=== PATIENT | male | born 1955 | race Caucasian/White ===

== ENCOUNTER 2021-06-10 11:29 | Emergency (ER) | payer OTHER, SELFPAY ==
--- NOTE | ~2021-06-10 | CT_ITS ---
EXAMINATION: CT CERVICAL SPINE WITHOUT CONTRAST CLINICAL INFORMATION: Fall COMPARISON: None TECHNIQUE: CT cervical spine with coronal and sagittal reconstructions. No intrathecal contrast. This CT examination was performed using dose optimization techniques as appropriate, variously including the following: *Automated exposure control *Adjustment of mA and/or kV according to patient size (this includes techniques or standardized protocols for targeted exams where dose is matched to indication/reason for exam; i.e. extremities or head) *Use of iterative reconstruction technique DLP: 1328.62 mGy-cm FINDINGS: There is motion artifact present. No abnormal prevertebral soft tissue swelling is seen. The paraspinal muscle fat planes are maintained. No acute cervical spine fracture is identified. There is some left lateral angulation of the odontoid without evidence of acute fracture which is most likely from combination of previous healed trauma as well as irregularity and loss of joint space involving the C1-C2 right lateral joint space and lateral mass. There is narrowing of the C5-C6 disc space with approximately 1 mm of subluxation. There is some spurring of the joints of [place]ch[place] at the C5-C6 level causing some mild anterior neuroforamina encroachment bilaterally. CT/CT cervical spine wo con IMPRESSION: No acute cervical spine fracture. Degenerative change as described above. Question old odontoid healed injury.
--- NOTE | ~2021-06-10 | CT_ITS ---
EXAMINATION: CT HEAD WITHOUT CONTRAST CLINICAL INFORMATION: Fall, trauma, pain COMPARISON: None TECHNIQUE: Contiguous axial imaging was performed from the skull base to vertex without intravenous administration of contrast. Images are repeated due to motion on initial sequence. Additional 2-D coronal and sagittal reformatted images are generated on the CT workstation and uploaded to PACS. This CT examination was performed using dose optimization techniques as appropriate, variously including the following: *Automated exposure control *Adjustment of mA and/or kV according to patient size (this includes techniques or standardized protocols for targeted exams where dose is matched to indication/reason for exam; i.e. extremities or head) *Use of iterative reconstruction technique DLP: 1388 mGy-cm FINDINGS: There is no intracranial hemorrhage, hematoma, or extra-axial fluid collection. The ventricles are normal in size and there is no hydrocephalus, edema, mass effect, midline shift. There is incidental small anterior congenital cavum septum pellucidum. Scattered bilateral periventricular white matter gliosis is present consistent with chronic small vessel ischemic changes. There are generalized atrophic changes with prominence of the cortical sulci and fissures and cisterns. There is no visible acute territorial infarct or mass lesion. There is a right posterior upper scalp hematoma measuring approximately 1 cm thickness by 2 cm x 2 cm. The calvarium appears intact. There is no pneumocephalus or orbital emphysema. The visualized sinuses and middle ears and mastoid air cells show no significant mucosal thickening. There are no air-fluid levels. CT/CT head/brain wo con IMPRESSION: 1. Posterior upper right scalp hematoma 1 x 2 x 2 cm. 2. No intracranial hemorrhage or hematoma. No mass effect or edema. 3. Generalized atrophic changes with periventricular white matter gliosis consistent with chronic small vessel ischemic changes..
--- NOTE | ~2021-06-10 | XR_ITS ---
EXAMINATION: XR CHEST CLINICAL INFORMATION: Rule out aspiration. COMPARISON: Chest 06/17/2017 TECHNIQUE: Frontal view of the chest was obtained. FINDINGS: The lungs are fairly well-expanded with increased markings suggestive of mild vascular congestion or interstitial pneumonitis. No consolidation or mass seen. The heart size and pulmonary vascularity is normal. There are pacer electrodes in right atrium and right ventricle. XR/XR chest 1V IMPRESSION: Suspect mild pulmonary vascular congestion. No confluent infiltrate seen. The pacer electrodes in right atrium and right ventricle.
[2021-06-10 11:40] VITALS: BP 101/76; BP 102/70; PULSE 58; PULSE 60; RESP 12; TEMP 35.6; O2SAT 96; BMI 25.7
--- NOTE | 2021-06-10 11:52 | ED_ITS ---
HPI - Fall General Chief Complaint: Fall Stated Complaint: fall/etoh Time Seen by Provider: 06/10/21 11:43 Source: patient and EMS Mode of arrival: EMS Limitations: altered mental status (agitation) History of Present Illness complaint: fall Onset (ago): minute(s) Fall from: standing Fall witnessed: yes, by bystander Place fall occurred: street (bystanders state he was walking and fell and hit his face no LOC reported ) Loss of consciousness: none Prolonged down time: no Symptoms prior to fall: none Context: other (states he has been taking too many benzos) Location of injury: head Associated symptoms (after fall): denies Related Data Allergies Allergy/AdvReac Type Severity Reaction Status Date / Time Penicillins [PENICILLINS] Allergy Unknown UNKNOWN, Verified 06/10/21 11:45 rash Penicillin Allergy Unknown rash Uncoded 07/07/17 00:00 Review of Systems Review of Systems: ROS unable to be obtained due to altered mental status and poor cooperation [facility] Past Medical History Attestation statement: The following information was validated with the patient. Medical History Cervical spine fracture Pancreatic cancer Substance abuse Social History Social History (Updated 06/10/21 @ 12:06 by Madhavi Maharaj DO) Patient Tobacco Use Status: Current everyday Tobacco user Substance Use Type: Opiates and Sedatives Physical Exam Vital Signs: Vital Signs: Last Vital Signs Temp 96.0 F L 06/10/21 11:40 Pulse 63 06/10/21 14:26 Resp 18 06/10/21 14:26 BP 153/82 H 06/10/21 14:26 Pulse Ox 100 06/10/21 14:26 Body Mass Index 25.7 Appearance: Alert. Oriented X2. No acute distress. Agitated Eyes: Pupils equal, round and reactive to light. ENT: Pharynx normal. contusion on parietal scalp Neck: Normal inspection. Neck supple. Collar in placeno CVS: Normal heart rate and rhythm. Pulses normal. Respiratory: No respiratory distress. Breath sounds normal. Abdomen: Soft and non-tender. Skin: Skin warm and dry. Normal skin color. Normal skin turgor. Extremities: No lower extremity edema. No calf ttp Neuro: Oriented X 2. No motor deficit. No sensory deficit. Course Course Course Narrative: initially somnolent on arrival - given narcan on arrival by discharge coordinator cannot obtain images, IV ativan ordered IVF ordered, repeat Cr ordered prior to N consult signed out pending repeat labs and [facility]N MDM - Fall MDM Narrative Medical decision making narrative: 65 yo male with hx of chronic pain, substance abuse, here after witnessed fall - admits to methadone and benzo use, given narcan prior to my assessment, he is agitated and making SI statements, I want to off myself. I'm going to take 100 bags of fentanyl and kill myself. Labs, CT for trauma head/neck, N consult ordered. Section 12 signed Lab Data Result diagrams: 06/10/21 13:42 06/10/21 13:42 Labs: Lab Results 06/10/21 06/10/21 06/10/21 Range/Units 12:54 13:42 13:42 WBC 14.5 H (4.8-10.8) X10*3/uL RBC 4.68 (4.60-5.80) X10*6/uL Hgb 12.9 L (14.0-18.0) g/dl Hct 40.3 L (42-52) % MCV 86.1 (80-98) fL MCH 27.6 (27.0-33.0) pg MCHC 32.0 (31.0-36.0) g/dl RDW 15.9 (11.0-16.0) % Plt Count 364 (160-400) X10*3/uL MPV 10.8 (9.4-12.4) fL Immature Gran % (Auto) 0.8 H (0.0-0.4) % Neut % (Auto) 75.9 H (45-73) % Lymph % (Auto) 14.8 L (20-40) % Clayton % (Auto) 5.9 (2-11) % Eos % (Auto) 2.1 (0-4) % Baso % (Auto) 0.5 (0-2) % Lymph # (Auto) 2.2 (1.2-4.9) X10*3/uL Clayton # (Auto) 0.9 (0.1-1.2) X10*3/uL Eos # (Auto) 0.3 (0.0-0.4) X10*3/uL Baso # (Auto) 0.1 (0.0-0.2) X10*3/uL Abs Immat Gran (auto) 0.12 H (0.00-0.03) X10*3/uL Absolute Neuts (auto) 11.0 H (2.0-8.3) X10*3/uL Absolute Nucleated RBC 0.000 (0.0-0.012) X10*3/uL Nucleated RBC % (auto) 0.0 (0.0-0.2) /100WBC PT 11.2 (9.9-13.0) SEC INR 1.0 (0.9-1.1) APTT 33.5 (24.1-38.0) SEC Sodium (135-145) mmol/L Potassium (3.3-5.1) mmol/L Chloride (96-108) mmol/L Carbon Dioxide (22-29) mmol/L Anion Gap (12-20) BUN (9-16) mg/dL Creatinine (0.5-1.4) mg/dL Estim Creat Clear Calc Estimated GFR Random Glucose (60-115) mg/dL Calcium (8.4-10.2) mg/dL Magnesium (1.6-2.6) mg/dL Total Bilirubin (0.0-1.0) mg/dL Direct Bilirubin (0.0-0.5) mg/dL AST (5-37) U/L ALT (0-40) U/L Alkaline Phosphatase (39-117) U/L Total Creatine Kinase (38-174) U/L Total Protein (6.5-8.0) g/dL Albumin (3.5-5.0) g/dL Lipase (8-78) U/L Ethyl Alcohol mg/dL COVID-19 (CARMELLA) Negative (Negative) COVID-19 Clin Com See Note 06/10/21 06/10/21 Range/Units 13:42 13:42 WBC (4.8-10.8) X10*3/uL RBC (4.60-5.80) X10*6/uL Hgb (14.0-18.0) g/dl Hct (42-52) % MCV (80-98) fL MCH (27.0-33.0) pg MCHC (31.0-36.0) g/dl RDW (11.0-16.0) % Plt Count (160-400) X10*3/uL MPV (9.4-12.4) fL Immature Gran % (Auto) (0.0-0.4) % Neut % (Auto) (45-73) % Lymph % (Auto) (20-40) % Clayton % (Auto) (2-11) % Eos % (Auto) (0-4) % Baso % (Auto) (0-2) % Lymph # (Auto) (1.2-4.9) X10*3/uL Clayton # (Auto) (0.1-1.2) X10*3/uL Eos # (Auto) (0.0-0.4) X10*3/uL Baso # (Auto) (0.0-0.2) X10*3/uL Abs Immat Gran (auto) (0.00-0.03) X10*3/uL Absolute Neuts (auto) (2.0-8.3) X10*3/uL Absolute Nucleated RBC (0.0-0.012) X10*3/uL Nucleated RBC % (auto) (0.0-0.2) /100WBC PT (9.9-13.0) SEC INR (0.9-1.1) APTT (24.1-38.0) SEC Sodium 139 (135-145) mmol/L Potassium 5.0 (3.3-5.1) mmol/L Chloride 107 (96-108) mmol/L Carbon Dioxide 22 (22-29) mmol/L Anion Gap 15 (12-20) BUN 22 H (9-16) mg/dL Creatinine 1.74 H (0.5-1.4) mg/dL Estim Creat Clear Calc 47.6 Estimated GFR 40 Random Glucose 75 (60-115) mg/dL Calcium 9.1 (8.4-10.2) mg/dL Magnesium 2.0 (1.6-2.6) mg/dL Total Bilirubin 0.3 (0.0-1.0) mg/dL Direct Bilirubin 0.2 (0.0-0.5) mg/dL AST 22 (5-37) U/L ALT 13 (0-40) U/L Alkaline Phosphatase 105 (39-117) U/L Total Creatine Kinase 96 (38-174) U/L Total Protein 7.4 (6.5-8.0) g/dL Albumin 3.9 (3.5-5.0) g/dL Lipase < 4 L (8-78) U/L Ethyl Alcohol < 10 mg/dL COVID-19 (CARMELLA) (Negative) COVID-19 Clin Com ECG Data Attestation: I personally reviewed and interpreted this ECG as follows: ECG interpretation date: 06/10/21 ECG interpretation time: 12:50 Interpretation: Rate: 60 Rhythm: con atrial paced [place]: normal Normal P waves. Normal KARLI. Normal QRS complex. ST T wave : no FELIPA, nonspecific, artifact noted qTC: prolonged prior studies: no acute ischemia The study has been interpreted contemporaneously by me. . Discharge Plan Discharge Clinical Impression: Active substance abuse, Creatinine elevation
--- NOTE | 2021-06-10 11:52 | ECG_ITS ---
Test Reason : AMS Blood Pressure : / mmHG Vent. Rate : 060 BPM Atrial Rate : 357 BPM P-R Int : 126 ms QRS Dur : 084 ms QT Int : 500 ms P-R-T Axes : 000 078 071 degrees QTc Int : 500 ms Atrial-paced rhythm Septal infarct (cited on or before 13-JUN-2017) Prominent U waves Prolonged QT Abnormal ECG When compared with ECG of 13-JUN-2017 09:58, Electronic atrial pacemaker has replaced Sinus rhythm Vent. rate has increased BY 22 BPM QT has lengthened Referred By: Madhavi Maharaj Electronically Signed By:Karlos Lynn
[2021-06-10] MEDS: LORazepam 2 MG/ML VIAL 1 MG IVPUSH (12:56)
--- NOTE | 2021-06-10 12:57 | PC.NURSE ---
pt combative upon change into hospital attire, security at bedside, pt attempting to swing his fists at staff. pt was escorted to CT scan by myself and security, IV access obtained as pt was restless, unable to obtain clear CT images. MD aware, pt medicated as ordered. Resp even, nonlaboured, RR 12 at this time, resting in stretcher in hallway.
[2021-06-10 13:28] LABS: COVID-19 Test Negative (Negative); IDNOW Serial# 9DD0AD1C
[2021-06-10 13:46] LABS: MANUAL DIFF FLAG NO
[2021-06-10 13:48] LABS: Basophils Absolute Auto 0.1 X10*3/uL (0.0-0.2); Basophils Percent Auto 0.5 % (0-2); Eosinophils Absolute Auto 0.3 X10*3/uL (0.0-0.4); Eosinophils Percent Auto 2.1 % (0-4); Hematocrit 40.3 % (42-52); Hemoglobin 12.9 g/dl (14.0-18.0); Imm Gran Abs Auto 0.12 X10*3/uL (0.00-0.03); Imm Gran Pct Auto 0.8 % (0.0-0.4); Lymphocytes Absolute Auto 2.2 X10*3/uL (1.2-4.9); Lymphocytes Percent Auto 14.8 % (20-40); Mean Corpuscular Hemoglobin 27.6 pg (27.0-33.0); Mean Corpuscular Volume 86.1 fL (80-98); Mean Platelet Volume 10.8 fL (9.4-12.4); Monocytes Absolute Auto 0.9 X10*3/uL (0.1-1.2); Monocytes Percent Auto 5.9 % (2-11); Neutrophils Percent Auto 75.9 % (45-73); Platelet Count 364 X10*3/uL (160-400); Red Blood Count 4.68 X10*6/uL (4.60-5.80); Red Cell Distribution Width 15.9 % (11.0-16.0); White Blood Count 14.5 X10*3/uL (4.8-10.8)
[2021-06-10 14:04] LABS: Prothrombin Time 11.2 SEC (9.9-13.0)
[2021-06-10 14:07] LABS: Partial Thromboplastin Time 33.5 SEC (24.1-38.0)
[2021-06-10 14:11] LABS: Ethanol < 10 mg/dL
[2021-06-10 14:19] LABS: Alanine Aminotransferase 13 U/L (0-40); Albumin Level 3.9 g/dL (3.5-5.0); Alkaline Phosphatase 105 U/L (39-117); Anion Gap 15 (12-20); Aspartate Amino Transferase 22 U/L (5-37); Bilirubin Direct 0.2 mg/dL (0.0-0.5); Bilirubin Total 0.3 mg/dL (0.0-1.0); Blood Urea Nitrogen 22 mg/dL (9-16); Calcium 9.1 mg/dL (8.4-10.2); Carbon Dioxide 22 mmol/L (22-29); Chloride 107 mmol/L (96-108); Creatinine Clr Calc Pharmacy 47.6; Estimated Glomerular Filt Rate 40; Glucose Random 75 mg/dL (60-115); Lipase < 4 U/L (8-78); Sodium 139 mmol/L (135-145); Total Protein 7.4 g/dL (6.5-8.0)
[2021-06-10 14:26] VITALS: BP 153/82; PULSE 63; RESP 18; O2SAT 100
[2021-06-10] MEDS: 0.9 % Sodium Chloride 1,000 ML 999 ML IVCONT (14:43)
--- NOTE | 2021-06-10 17:10 | PC.NURSE ---
pt tought stick, phlebtomoy on their way to draw CR.
[2021-06-10 17:53] LABS: Creatinine Clr Calc Pharmacy 58.8; Estimated Glomerular Filt Rate 51
--- NOTE | 2021-06-10 19:06 | PC.NURSE ---
pt has been 1:1 since arrival to facility. remains asleep. easily roused, requesting methadone.
[2021-06-10 19:09] VITALS: BP 199/105; PULSE 90; RESP 16; TEMP 35.8; O2SAT 98
[2021-06-10 22:21] VITALS: BP 150/80; PULSE 61; RESP 14; TEMP 36.4; O2SAT 97
[2021-06-11] VITALS: RESP 16
--- NOTE | 2021-06-11 03:25 | PC.NURSE ---
Patient woke up, sat upright and stated Where's my stuff? I need my Methadone now! I take 130mg of Methadone and I'm going crazy here! This RN called [facility] on [facility] to attempt to confirm methadone dose, but was unable to because it is 3:29am currently. Call back number given to [facility] and will give a call back when available. This information explained to patient, who verbalized understanding and remained calm. to bedside, offered PO Ativan, which patient accepted. Plan to administer medication once it is ordered. Warm blankets given. Will continue to monitor.
[2021-06-11] MEDS: LORazepam 1 MG TABLET PO (05:31)
--- NOTE | 2021-06-11 09:50 | PC.NURSE ---
[facility] CALLED RE:REFERRAL
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
--- NOTE | 2021-06-11 13:19 | MHC.RECOVSUP ---
Recovery Support note: Patient is a 65 year old Emir[place] speaking male who presented to [facility] ED after a fall. Patient made SI statements while in the emergency department. Patient was evaluated by crisis and cleared for discharge. This procedure writer met with patient to discuss his substance use and treatment options. Patient is currently receiving 130mg of methadone through [facility] in [place]. Patient finds this helpful and reports he rarely uses heroin. Patient reports regular use of benzodiazepine use. Reports he was previously prescribed medications however his provider discontinued them and he began buying them off the street. Patient reports withdrawal symptoms when he does not use, stating he cannot sleep. Patient is agreeable to going to detox and reports he will go anywhere. This procedure writer will refer patient to detox facilities.
== END 2021-06-11 18:29 | disposition home or self-care (01) ==
PROVIDERS: Emergency Medicine; Emergency Provider Emergency Medicine
DX: S00.81XA Abrasion of other part of head, initial encounter (principal); F11.129 Opioid abuse with intoxication, unspecified; F10.129 Alcohol abuse with intoxication, unspecified; G44.309 Post-traumatic headache, unspecified, not intractable; R79.89 Other specified abnormal findings of blood chemistry; M54.2 Cervicalgia; W01.0XXA Fall on same level from slipping, tripping and stumbling without subsequent striking against object, initial encounter; Y93.9 Activity, unspecified; Y92.9 Unspecified place or not applicable; Y99.9 Unspecified external cause status; Y90.0 Blood alcohol level of less than 20 mg/100 ml; Z20.822 Contact with and (suspected) exposure to COVID-19; Z79.899 Other long term (current) drug therapy
CPT/HCPCS: 36415; 70450; 71045; 72125; 80048; 80076; 82077; 82550; 82565; 83690; 83735; 85025; 85610; 85730; 87635; 93005; 96365; 96375; 99284; 99285; J2060

== ENCOUNTER 2023-12-16 17:30 | Inpatient (IN) | payer MEDICARE, MEDICAID, SELFPAY ==
--- NOTE | ~2023-12-16 | US_ITS ---
EXAMINATION: US ABDOMEN LIMITED CLINICAL INFORMATION: Left upper quadrant pain. COMPARISON: None available. TECHNIQUE: Real-time imaging of the pancreas, spleen and left kidney. 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 The left kidney measures 11.3 cm in length. No evidence of nephrolithiasis or hydronephrosis. There are several renal cysts, largest with lobulated contour, a few internal septations and peripheral hyperechoic foci in the mid pole lateral surface measuring 2.3 x 1.8 x 2.3 cm. No evidence of free fluid or left upper quadrant mass. US/US abdomen limited IMPRESSION: 1. No evidence of nephrolithiasis or hydronephrosis. 2. Complex left midpole renal cyst. Recommend further characterization with abdominal MRI renal protocol. 3. 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
[2023-12-16 17:38] VITALS: BP 139/83; BP 150/90; PULSE 73; PULSE 76; RESP 16; TEMP 37.2; O2SAT 95; O2SAT 98; BMI 23.0
[2023-12-16 17:48] VITALS: RESP 16
--- NOTE | 2023-12-16 18:13 | ED.PSYCH ---
HPI - Psych General Chief Complaint: Psychiatric Symptoms Stated Complaint: SI remarks, voluntarily coming to ER Time Seen by Provider: 12/16/23 17:54 Source: patient and EMS Mode of arrival: EMS Limitations: no limitations History of Present Illness HPI Narrative: 68-year-old male with a history of chronic pancreatitis, pacemaker, polysubstance use presents to the ER with complaints of increasing depression, states I dont want to live anymore . Patient reports he has been taking daily about 10-Klonopin off the street and attempt to fall asleep and never wake up again. He denies HI or hallucination. He is on methadone. He does intermittently sniff heroin. No physical complaints Patient reports he does not currently have a psychiatrist or therapist. Related Data Home Medications Medication Instructions Recorded Confirmed methadone 10 mg/mL oral concentrate 130 mg PO DAILY 06/11/21 06/11/21 Allergies Allergy/AdvReac Type Severity Reaction Status Date / Time Penicillins [PENICILLINS] Allergy Unknown UNKNOWN, Verified 12/16/23 20:14 rash Review of Systems Review of Systems: Yes all other systems are reviewed and are negative Constitutional: Constitutional: Reports no additional constitutional complaints, Denies body ache(s), Denies chills, Denies fever(s), Denies headache(s) and Denies weakness Eyes: Eyes: Reports no additional eye complaints and Denies change in vision ENT: Reports system reviewed and no additional complaints, except as documented, Denies dizziness, Denies headache(s), Denies nasal congestion, Denies nasal discharge and Denies neck pain Cardiovascular: Cardiovascular: Reports no additional cardiovascular complaints, Denies chest pain, Denies leg edema and Denies dyspnea Respiratory: Respiratory: Reports no additional respiratory complaints, Denies cough and Denies dyspnea Gastrointestinal: Gastrointestinal: Reports no additional gastrointestinal complaints, Denies abdominal pain, Denies diarrhea, Denies nausea and Denies vomiting Genitourinary: Genitourinary: Denies urinary incontinence Musculoskeletal: Musculoskeletal: Reports no additional musculoskeletal complaints, Denies back pain, Denies arthralgias, Denies joint swelling, Denies neck pain, Denies numbness and Denies tingling Integumentary/Breasts: Skin/Breast: Reports system reviewed and no additional complaints, except as docu and Denies rash Neurologic: Reports system reviewed and no additional complaints, except as documented, Denies Abnormal speech present, Denies dizziness, Denies headache(s), Denies numbness, Denies tingling and Denies weakness Psychiatric: Psychiatric: Denies anxiety, Reports depression, Denies homicidal ideation and Reports suicidal ideation [facility] Past Medical History Attestation statement: The following information was validated with the patient. Source: old records reviewed and nursing notes reviewed Medical History Substance abuse Cervical spine fracture Pancreatic cancer Social History Social History Alcohol intake: current Alcohol intake frequency: holidays/special occasions only Alcohol type: beer and hard liquor Patient Tobacco Use Status: Current everyday Tobacco user Smoked in Last 30 Days: Yes Substance Use Type: Opiates Substance Use Type Other:: fentanyl Substance Use Frequency: Monthly Any prior treatment program specific to substance use: No Advance Directives: No Advance Directives Information Provided: No Physical Exam Vital Signs: Vital Signs: Last Vital Signs Temp 98.9 F 12/16/23 17:38 Pulse 73 12/16/23 17:38 Resp 16 12/16/23 17:48 BP 139/83 12/16/23 17:38 Pulse Ox 98 12/16/23 17:38 O2 Del Method Room Air 12/16/23 17:38 BMI result Body Mass Index 23.0 Const: General: cooperative, healthy appearing, comfortable and no acute distress Orientation/consciousness: patient oriented x3 Limitations: no limitations HEENT: Head: Yes normal to inspection Ears: hearing grossly normal bilaterally General nose exam: Normal external nose present Face and sinus: Yes normal facial exam Mouth: Normal oral and palatal mucosa present Throat: Yes posterior oropharynx normal Eyes: General: appearance normal, both eyes and all related structures Pupils: Equal, round and reactive pupils present Neck: Neck: Yes normal visual inspection Chest: Chest palpation & inspection: normal inspection of the chest Resp: Effort & Inspection: normal respiratory effort Auscultation: clear to auscultation bilaterally Cardio: Rate: regular rate Rhythm: regular rhythm Peripheral pulses: Peripheral pulses 2+ throughout GI: Inspection: Yes normal to inspection Palpation (GI): Soft to palpation and nontender Auscultation: normal bowel sounds Back/Spine/Pelvis: Thoracic/Lumbar Spine: thoracic and lumbar spine normal to inspection Skin: General skin exam: no rashes or lesions noted Neuro: General: patient oriented x3, no focal motor deficits and normal sensation to monofilament Cranial nerves: Yes Equal, round and reactive pupils present Cognition (Neuro): normal cognition Speech: No Abnormal speech present Gait exam (Neuro): Normal gait present Motor exam (neuro): 5/5 motor strength present throughout Extrem: General: Yes normal to inspection Course Course Course Narrative: 1957-reviewed labs and drug screen. At this time no concern for acute ingestion or trauma. Patient be medically cleared to see crisis Reevaluation(s) Reevaluation #1: [id number]-Placed in physician observation pending CARE team evaluation Reevaluation #2: [id number]-Sign out to Dr Oconnor pending care team Medical Decision Making Medical Decision Making [facility] Narrative: 68-year-old male with a history of chronic pancreatitis, pacemaker, polysubstance use presents to the ER with complaints of increasing depression, states I dont want to live anymore . Patient reports he has been taking daily about 10-Klonopin off the street and attempt to fall asleep and never wake up again. He denies HI or hallucination. He is on methadone. He does intermittently sniff heroin. No physical complaints Patient reports he does not currently have a psychiatrist or therapist. No concern for trauma. Patient has been taking about 10 tablets per day of klonopin (off the street). Last dose was this morning 9am. Alert/oriented. Will need labs, JOHNSON, crisis consult once Differential Diagnosis Differential Diagnoses: The differential diagnosis associated with the presentation includes Admission/Observation Consideration of admission/observation: Escalation of care including admission/observation considered Consult Healthcare Provider Management of the patient was discussed with: Behavioral Health Provider Lab Data [facility] Lab Attestation statement: I reviewed the patient's lab results. Labs show chronic leukocytosis, chronic kidney disease Drug screen is positive for opiates, fentanyl, benzos, cocaine 12/16/23 19:27 12/16/23 19:27 Labs: Lab Results 12/16/23 12/16/23 Range/Units 18:29 19:27 WBC 14.2 H (4.8-10.8) X10*3/uL RBC 3.83 L (4.60-5.80) X10*6/uL Hgb 10.6 L (14.0-18.0) g/dl Hct 33.5 L (42.0-52.0) % MCV 87.5 (80.0-98.0) fL MCH 27.7 (27.0-33.0) pg MCHC 31.6 (31.0-36.0) g/dl RDW 16.4 H (11.0-16.0) % Plt Count 325 (160-400) X10*3/uL MPV 10.8 (9.4-12.4) fL Immature Gran % (Auto) 0.6 H (0.0-0.4) % Neut % (Auto) 84.0 H (45-73) % Lymph % (Auto) 9.4 L (20-40) % [place] % (Auto) 5.3 (2-11) % Eos % (Auto) 0.2 (0-4) % Baso % (Auto) 0.5 (0-2) % Lymph # (Auto) 1.3 (1.2-4.9) X10*3/uL [place] # (Auto) 0.8 (0.1-1.2) X10*3/uL Eos # (Auto) 0.0 (0.0-0.4) X10*3/uL Baso # (Auto) 0.1 (0.0-0.2) X10*3/uL Abs Immat Gran (auto) 0.08 H (0.00-0.03) X10*3/uL Absolute Neuts (auto) 12.0 H (2.0-8.3) x10*3/uL Absolute Nucleated RBC 0.000 (0.0-0.012) X10*3/uL Nucleated RBC % (auto) 0.0 (0.0-0.2) /100WBC Sodium 141 (135-145) mmol/L Potassium 4.9 (3.3-5.1) mmol/L Chloride 105 (96-108) mmol/L Carbon Dioxide 23 (22-29) mmol/L Anion Gap 18 (12-20) BUN 28 H (9-16) mg/dL Creatinine 1.55 H (0.5-1.4) mg/dL Estim Creat Clear Calc 37.7 Estimated GFR 45 Random Glucose 122 H (60-115) mg/dL Calcium 8.7 (8.4-10.2) mg/dL Total Bilirubin 0.2 (0.0-1.0) mg/dL AST 19 (5-37) U/L ALT 10 (0-40) U/L Alkaline Phosphatase 100 (39-117) U/L Total Protein 7.0 (6.5-8.0) g/dL Albumin 3.5 (3.5-5.0) g/dL Urine Color Dark Yellow Urine Appearance Clear Urine pH 5.0 (5.0-9.0) Ur Specific [place] 1.020 (1.005-1.025) Urine Protein Negative (Neg-Trace) mg/dL Urine Glucose (UA) Negative (Negative) mg/dL Urine Ketones Trace (Negative) mg/dL Urine Blood Negative (Negative) Urine Nitrite Negative (Negative) Ur Leukocyte Esterase Negative (Negative) Urine Opiates Screen POSITIVE H (Not Detect) Urine Fentanyl Screen POSITIVE H (Not Detect) Ur Barbiturates Screen Not Detected (Not Detect) Ur Phencyclidine Scrn Not Detected (Not Detect) Ur Amphetamines Screen Not Detected (Not Detect) U Benzodiazepines Scrn POSITIVE H (Not Detect) Urine Cocaine Screen POSITIVE H (Not Detect) U Marijuana (THC) Screen Not Detected (Not Detect) Ethyl Alcohol < 10 mg/dL COVID-19 (CARMELLA) Negative (Negative) COVID-19 Clin Com See Note Discharge Plan Discharge Clinical Impression: Depression, Polysubstance use disorder Patient Disposition: Still a Patient Prescriptions: No Action methadone 10 mg/mL Concentrate 130 mg PO DAILY Interventions: [place]-Suicide Risk Severity Scale Last Done: 12/16/23 17:45
--- NOTE | 2023-12-16 18:51 | PC.NURSE ---
this RN attempted to draw patient and so did COLTEN Ahuja without success. Urine and covid sent down Patient is calm and cooperative at this time, offering no complaints to this RN. Denies HI, endorses some suicidal thoughts
[2023-12-16 18:57] LABS: Amphetamine Screen Urine Not Detected (Not Detect); Barbiturates, Urine Not Detected (Not Detect); Benzodiazepines Screen Urine POSITIVE (Not Detect); Cannabinoid Screen Urine Not Detected (Not Detect); Cocaine Screen Urine POSITIVE (Not Detect); Fentanyl, urine POSITIVE (Not Detect); Opiate Screen Urine POSITIVE (Not Detect); Phencyclidine Screen Urine Not Detected (Not Detect)
[2023-12-16 19:01] LABS: COVID-19 Test Negative (Negative); IDNOW Serial# 152EDE1D
[2023-12-16 19:32] LABS: MANUAL DIFF FLAG NO
[2023-12-16 19:34] LABS: Basophils Absolute Auto 0.1 X10*3/uL (0.0-0.2); Basophils Percent Auto 0.5 % (0-2); Eosinophils Percent Auto 0.2 % (0-4); Hematocrit 33.5 % (42.0-52.0); Hemoglobin 10.6 g/dl (14.0-18.0); Imm Gran Abs Auto 0.08 X10*3/uL (0.00-0.03); Imm Gran Pct Auto 0.6 % (0.0-0.4); Lymphocytes Absolute Auto 1.3 X10*3/uL (1.2-4.9); Lymphocytes Percent Auto 9.4 % (20-40); Mean Corpuscular HGB Conc 31.6 g/dl (31.0-36.0); Mean Corpuscular Hemoglobin 27.7 pg (27.0-33.0); Mean Corpuscular Volume 87.5 fL (80.0-98.0); Mean Platelet Volume 10.8 fL (9.4-12.4); Monocytes Absolute Auto 0.8 X10*3/uL (0.1-1.2); Monocytes Percent Auto 5.3 % (2-11); Platelet Count 325 X10*3/uL (160-400); Red Blood Count 3.83 X10*6/uL (4.60-5.80); Red Cell Distribution Width 16.4 % (11.0-16.0); White Blood Count 14.2 X10*3/uL (4.8-10.8)
[2023-12-16 19:38] LABS: Appearance Urine Clear; Color Urine Dark Yellow; Glucose Urine UA Negative (Negative); Leukocyte Esterase Urine Negative (Negative); Nitrite Urine Negative (Negative); Urine Blood Negative (Negative); Urine Ketones Trace mg/dL (Negative); Urine Protein Negative (Neg-Trace)
[2023-12-16 19:49] LABS: Alanine Aminotransferase 10 U/L (0-40); Albumin Level 3.5 g/dL (3.5-5.0); Alkaline Phosphatase 100 U/L (39-117); Anion Gap 18 (12-20); Aspartate Amino Transferase 19 U/L (5-37); Bilirubin Total 0.2 mg/dL (0.0-1.0); Blood Urea Nitrogen 28 mg/dL (9-16); Calcium 8.7 mg/dL (8.4-10.2); Carbon Dioxide 23 mmol/L (22-29); Chloride 105 mmol/L (96-108); Creatinine Clr Calc Pharmacy 37.7; Estimated Glomerular Filt Rate 45; Ethanol < 10 mg/dL; Glucose Random 122 mg/dL (60-115); Potassium 4.9 mmol/L (3.3-5.1); Sodium 141 mmol/L (135-145)
--- NOTE | 2023-12-17 | ECG_ITS ---
Test Reason : MED CLEARACE Blood Pressure : / mmHG Vent. Rate : 060 BPM Atrial Rate : 060 BPM P-R Int : 154 ms QRS Dur : 074 ms QT Int : 460 ms P-R-T Axes : 087 046 057 degrees QTc Int : 460 ms Atrial-paced rhythm Low voltage QRS Abnormal ECG When compared with ECG of 10-JUN-2021 12:44, Criteria for Septal infarct are no longer Present Referred By: Luis Sanchez Electronically Signed By:Karlos Lynn
[2023-12-17 03:06] VITALS: BP 157/95; PULSE 68; RESP 17; TEMP 36.8; O2SAT 97
[2023-12-17 04:20] VITALS: BP 154/108; PULSE 76; RESP 17; TEMP 36.8; O2SAT 98
--- NOTE | 2023-12-17 07:59 | HE.PHANOTE ---
RE: METHADONE DOSE Patient's daily dose is 150 mg in the morning and 95 mg in the evening. Last dose of 150 mg was given on 12/16/23 @0706 per Aldo JIMENEZ. Patient goes to [facility] in [place], [place].
[2023-12-17 08:03] VITALS: BP 132/78; PULSE 60; TEMP 36.2; O2SAT 100
[2023-12-17] MEDS: methADONE HCl 20 MG/2 ML ORAL.CONC 150 MG PO (09:01)
--- NOTE | 2023-12-17 11:40 | PC.NURSE ---
Assumed care of patient at 1100, patient is calm and cooperative, resting on bed. Requesting something for anxiety. aware
[2023-12-17] MEDS: LORazepam 1 MG TABLET 2 MG PO ×2 (12:21→18:10)
--- NOTE | 2023-12-17 19:20 | PC.NURSE ---
patient appears to be resting, watching super bowl, asked for loperamide appears in no distress presently.
[2023-12-17] MEDS: methADONE HCl 20 MG/2 ML ORAL.CONC 95 MG PO (19:52)
[2023-12-17] MEDS: Loperamide HCl 2 MG CAPSULE PO (19:52)
[2023-12-17 20:13] VITALS: BP 146/90; PULSE 60; RESP 18; TEMP 37.1; O2SAT 96
[2023-12-18 03:24] VITALS: BP 125/92; PULSE 63; RESP 17; TEMP 36.7; O2SAT 95
[2023-12-18] MEDS: LORazepam 1 MG TABLET 2 MG PO ×2 (04:01→08:02)
[2023-12-18 07:35] VITALS: RESP 16
--- NOTE | 2023-12-18 07:36 | PC.NURSE ---
PT A/O NO SOB/SHADI NOTED. RESP EVEN AND UNLABORED. PT TOOK A SHOWER. WILL CONTINUE TO MONITOR.
[2023-12-18] MEDS: methADONE HCl 20 MG/2 ML ORAL.CONC 150 MG PO (08:01)
[2023-12-18 09:30] VITALS: BP 117/70; PULSE 61; TEMP 36.4; O2SAT 97
[2023-12-18 12:13] LABS: Hematocrit 34.8 % (42.0-52.0); Hemoglobin 11.3 g/dl (14.0-18.0); Mean Corpuscular HGB Conc 32.5 g/dl (31.0-36.0); Mean Corpuscular Volume 86.4 fL (80.0-98.0); Mean Platelet Volume 11.2 fL (9.4-12.4); Platelet Count 343 X10*3/uL (160-400); Red Blood Count 4.03 X10*6/uL (4.60-5.80); Red Cell Distribution Width 16.1 % (11.0-16.0); White Blood Count 7.8 X10*3/uL (4.8-10.8)
[2023-12-18 12:26] LABS: Alanine Aminotransferase 8 U/L (0-40); Albumin Level 3.4 g/dL (3.5-5.0); Alkaline Phosphatase 101 U/L (39-117); Anion Gap 13 (12-20); Aspartate Amino Transferase 17 U/L (5-37); Bilirubin Total 0.2 mg/dL (0.0-1.0); Blood Urea Nitrogen 18 mg/dL (9-16); Calcium 8.5 mg/dL (8.4-10.2); Carbon Dioxide 27 mmol/L (22-29); Chloride 106 mmol/L (96-108); Creatinine Clr Calc Pharmacy 60.9; Estimated Glomerular Filt Rate > 60; Glucose Random 89 mg/dL (60-115); Potassium 4.8 mmol/L (3.3-5.1); Sodium 141 mmol/L (135-145); Total Protein 6.7 g/dL (6.5-8.0)
--- NOTE | 2023-12-18 12:40 | PC.NURSE ---
Assumed care of patient 1100, patient has been calm and cooperative without issues. Pt is aware of plan of care for inpt admission and has signed a CV
[2023-12-18] MEDS: hydrOXYzine HCL 25 MG TABLET PO ×2 (13:08→17:37)
--- NOTE | 2023-12-18 13:59 | PC.NURSE ---
pt requesting immodium, COWS scale is 13. volleyball commentator Maria Del Rosario aware
[2023-12-18 15:16] VITALS: BMI 20.8
[2023-12-18 15:17] VITALS: BP 177/87; PULSE 66; RESP 16; TEMP 36.7; O2SAT 100
[2023-12-18 16:00] VITALS: PULSE 60
--- NOTE | 2023-12-18 16:15 | MHC.CLN ---
Addendum entered by Goldie Gusman, FRANKLIN 12/20/23 14:55: SEE RD NOTE 12/20/23. INITIAL HEIGHT ENTERED IN ERROR. CORRECT HEIGHT=5'10 , BMI=16.9. Original Note: NUTRITION CONSULT FOR UNDERWEIGHT. DOES NOT QUALIFY UNDERWEIGHT WITH BMI=20.8 AND WEIGHT IS 95% OF IBW. RD TO FOLLOW UP WEEKLY FOR INTAKE.
[2023-12-18] MEDS: amLODIPine Besylate 5 MG TABLET PO (16:17)
[2023-12-18 17:05] VITALS: BMI 16.9
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
[2023-12-18] MEDS: Nicotine 7 MG PATCH.TD24 TRANSDERMA (17:36)
[2023-12-18 18:00] VITALS: BP 133/77; PULSE 70; RESP 16; TEMP 37.3; O2SAT 98
[2023-12-18] MEDS: methADONE HCl 20 MG/2 ML ORAL.CONC 95 MG PO (20:20)
[2023-12-19 02:43] VITALS: BP 124/68; PULSE 60; RESP 16; TEMP 36.4; O2SAT 100
[2023-12-19] MEDS: Acetaminophen 325 MG TABLET 650 MG PO (02:49)
[2023-12-19] MEDS: traZODone HCL 50 MG TABLET PO (02:50)
[2023-12-19] MEDS: hydrOXYzine HCL 25 MG TABLET PO (02:50)
[2023-12-19 08:21] VITALS: BP 139/86; PULSE 70; RESP 15; TEMP 36.8; O2SAT 99
[2023-12-19] MEDS: Nicotine 7 MG PATCH.TD24 TRANSDERMA (08:22)
[2023-12-19] MEDS: methADONE HCl 20 MG/2 ML ORAL.CONC 150 MG PO (08:23)
[2023-12-19 08:55] LABS: Estimated Average Glucose 100 mg/dL; Hemoglobin A1c % 5.1 % (<6.0)
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
[2023-12-19 09:40] LABS: Folate 9.3 ng/mL (> or = 4.0); Vitamin B12 791 pg/mL (200-900)
[2023-12-19] MEDS: Omeprazole 20 MG CAPSULE.DR PO (13:31)
[2023-12-19] MEDS: clonazePAM 1 MG TABLET PO ×2 (13:31→19:31)
[2023-12-19] MEDS: Lipase/Prot/Amylase 24/76/120K 1 CAP CAPSULE.DR PO ×2 (13:53→16:30)
[2023-12-19] MEDS: Tiotropium Bromide 2.5 mcg 1 PUFF/2.5 MCG MIST.INHAL 2 PUFF INHALE (13:54)
[2023-12-19 18:00] VITALS: BP 116/58; PULSE 60; RESP 16; TEMP 36.6; O2SAT 96
[2023-12-19] MEDS: methADONE HCl 20 MG/2 ML ORAL.CONC 95 MG PO (19:29)
[2023-12-19] MEDS: Mirtazapine 30 MG TABLET PO (19:32)
[2023-12-20 09:45] VITALS: BP 133/80; PULSE 62; RESP 16; TEMP 36.6; O2SAT 98
[2023-12-20] MEDS: Nicotine 7 MG PATCH.TD24 TRANSDERMA (09:50)
[2023-12-20] MEDS: Omeprazole 20 MG CAPSULE.DR PO (09:51)
[2023-12-20] MEDS: Lipase/Prot/Amylase 24/76/120K 1 CAP CAPSULE.DR PO ×3 (09:51→17:27)
[2023-12-20] MEDS: clonazePAM 1 MG TABLET PO ×2 (09:51→20:51)
[2023-12-20] MEDS: Tiotropium Bromide 2.5 mcg 1 PUFF/2.5 MCG MIST.INHAL 2 PUFF INHALE (09:52)
[2023-12-20] MEDS: methADONE HCl 20 MG/2 ML ORAL.CONC 150 MG PO (09:55)
--- NOTE | 2023-12-20 10:04 | P.PNPSI_ITS ---
Subjective Subjective Date of Service: 12/20/23 Reason For Visit: SI Subjective Notes: Conditional Voluntary Interim History: Pt reports sleep was better last night. Pt reports feeling less depressed but worried about physical health. He denies SI/HI. He has been visible on the unit. No behavioral concerns. He is eating well. Medication Compliance: Yes Review of Systems Review of Systems Yes all other systems are reviewed and are negative Constitutional: Reports no additional constitutional complaints, Denies body ache(s), Denies chills, Denies fever(s), Denies headache(s) and Denies weakness Eyes: Reports no additional eye complaints and Denies change in vision Reports system reviewed and no additional complaints, except as documented, Denies dizziness, Denies headache(s), Denies nasal congestion, Denies nasal discharge and Denies neck pain Cardiovascular: Reports no additional cardiovascular complaints, Denies chest pain, Denies leg edema and Denies dyspnea Respiratory: Reports no additional respiratory complaints, Denies cough and Denies dyspnea Gastrointestinal: Reports no additional gastrointestinal complaints, Denies abdominal pain, Denies diarrhea, Denies nausea and Denies vomiting Genitourinary: Denies urinary incontinence Musculoskeletal: Reports no additional musculoskeletal complaints, Denies back pain, Denies arthralgias, Denies joint swelling, Denies neck pain, Denies numbness and Denies tingling Skin/Breast: Reports system reviewed and no additional complaints, except as docu and Denies rash Reports system reviewed and no additional complaints, except as documented, Denies Abnormal speech present, Denies dizziness, Denies headache(s), Denies numbness, Denies tingling and Denies weakness Psychiatric: Denies anxiety, Reports depression, Denies homicidal ideation and Reports suicidal ideation Mental Status Exam Mental Status Exam Narrative: Appearance:thin, malnourished, fair hygiene, in NAD Behavior:cooperative Psychomotor: no agitation or retardation noted Speech:clear, normal rate/rhythm/volume, spontaneous TP:linear TC:no signs of psychosis, feeling tired, but open to help Mood: depressed Affect:constricted SI: passive HI:none VH/AH:none Delusions:none Insight/judgment: poor x 2. Memory/cog: alert, oriented x 3.pending MOCA and ACL. Diagnostics Vital Signs (24Hr): Vital Signs - 24 hr 12/19/23 18:00 12/20/23 09:45 Temperature 98 F 97.9 F Pulse Rate 60 62 Respiratory Rate 16 16 Blood Pressure 116/58 L 133/80 Pulse Oximetry 96 98 Oxygen Delivery Method Room Air Room Air BMI result Body Mass Index 16.9 Labs 12/18/23 12:05 12/18/23 12:05 Labs: Laboratory Results - last 48 hr 12/18/23 12/19/23 12:05 07:28 WBC 7.8 RBC 4.03 L Hgb 11.3 L Hct 34.8 L MCV 86.4 MCH 28.0 MCHC 32.5 RDW 16.1 H Plt Count 343 MPV 11.2 Absolute Nucleated RBC 0.000 Nucleated RBC % (auto) 0.0 Sodium 141 Cancelled Potassium 4.8 Cancelled Chloride 106 Cancelled Carbon Dioxide 27 Cancelled Anion Gap 13 Cancelled BUN 18 H Cancelled Creatinine 0.96 Cancelled Estim Creat Clear Calc 60.9 Cancelled Estimated GFR > 60 Cancelled Random Glucose 89 Fasting Glucose Cancelled Estimat Average Glucose 100 Hemoglobin A1c % 5.1 Calcium 8.5 Cancelled Total Bilirubin 0.2 Cancelled AST 17 Cancelled ALT 8 Cancelled Alkaline Phosphatase 101 Cancelled Total Protein 6.7 Cancelled Albumin 3.4 L Cancelled Triglycerides Cancelled Cholesterol Cancelled LDL Cholesterol, Calc Cancelled HDL Cholesterol Cancelled Vitamin B12 791 Folate 9.3 TSH Cancelled Medications Medications Current Medications Acetaminophen (Acetaminophen 325 Mg Tablet) 650 mg PO Q6H PRN PRN Reason: Headache/Pain Mild Scale (1-3) Last Admin: 12/19/23 02:49 Dose: 650 mg Al Hydroxide/Mg Hydroxide (Magnesium Hydrox/Alum Hydrox 30 Ml Oral.Susp) 30 ml PO Q6H PRN PRN Reason: Heartburn/Nausea Lipase/Protease/Amylase (Lipase/Prot/Amylase 24/76/120k 1 Cap Capsule.Dr) 1 cap PO TIDWM [facility] Last Admin: 12/20/23 09:51 Dose: 1 cap Clonazepam (Clonazepam 1 Mg Tablet) 1 mg PO BID [facility] Last Admin: 12/20/23 09:51 Dose: 1 mg Hydroxyzine HCl (Hydroxyzine Hcl 25 Mg Tablet) 25 mg PO Q6H PRN PRN Reason: Anxiety Last Admin: 12/19/23 02:50 Dose: 25 mg Magnesium Hydroxide (Milk Of Magnesia 30 Ml Oral.Susp) 30 ml PO DAILY PRN PRN Reason: Constipation Methadone HCl (Methadone Hcl 20 Mg/2 Ml Oral.Conc) 95 mg PO BEDTIME [facility] Last Admin: 12/19/23 19:29 Dose: 95 mg Methadone HCl (Methadone Hcl 20 Mg/2 Ml Oral.Conc) 150 mg PO DAILY [facility] Last Admin: 12/20/23 09:55 Dose: 150 mg Mirtazapine (Mirtazapine 30 Mg Tablet) 30 mg PO BEDTIME [facility] Last Admin: 12/19/23 19:32 Dose: 30 mg Naloxone HCl (Naloxone Hcl Nasal 4 Mg [place]) 4 mg NOSTRILALT DAILY PRN PRN Reason: opioid overdose Nicotine (Nicotine 7 Mg Patch.Td24) 7 mg TRANSDERMA DAILY [facility] Last Admin: 12/20/23 09:50 Dose: 7 mg Omeprazole (Omeprazole 20 Mg Capsule.Dr) 20 mg PO DAILY@0630 [facility] Last Admin: 12/20/23 09:51 Dose: 20 mg Tiotropium [place] (Tiotropium [place] 2.5 Mcg 1 Puff/2.5 Mcg Mist.Inhal) 2 puff INHALE RDAILY [facility] Last Admin: 12/20/23 09:52 Dose: 2 puff Trazodone HCl (Trazodone Hcl 50 Mg Tablet) 50 mg PO BEDTIME MRX1 PRN PRN Reason: Insomnia Last Admin: 12/19/23 02:50 Dose: 50 mg Allergies Allergies Allergy/AdvReac Type Severity Reaction Status Date / Time Penicillins [PENICILLINS] Allergy Unknown UNKNOWN, Verified 12/16/23 20:14 rash Assessment & Plan Assessment & Plan (1) MDD (major depressive disorder), recurrent episode, moderate: Status: Acute Code(s): F33.1 - Major depressive disorder, recurrent, moderate (2) Benzodiazepine dependence, continuous: Status: Acute Code(s): F13.20 - Sedative, hypnotic or anxiolytic dependence, uncomplicated (3) Opioid use disorder, severe, dependence: Status: Acute Code(s): F11.20 - Opioid dependence, uncomplicated Plan Mr. Spears is a 68 year-old male with hx of MDD, long hx of opioid, benzodiazepine dependence who self presented to [facility] reporting increase depression, SI in context of multiple stressors but mostly ongoing use of substances which are affecting his quality of life and health. Utox positive for fentanyl, opiods, cocaine, cannabinoids and benzodiazepine. Pt also reports poor memory, will obtain MOCA and ACL. He is unsure as to treatment for substance use he is ready to engage in. But is open to additional supports. We discussed risks, benefits and alternative treatment options, will start remeron 30mg po qhs for mood and sleep. WIll do clonazepam taper--> given high dose of methadone-- monitor respiratory status, also ordered narcan in event of respiratory suppression. Will do clonazepam 1mg po BID x 2 days, then 0.5mg po BID x 2-3 days, then 0.5mg po daily x 2, then stop. PLAN 1. Admit S1, CV and 15 minutes checks for safety 12/20: continue remeron 30mg po qhs continue Benzodiazepine taper--> clonazepam 1mg po BID x 2 days, then 0.5mg po BID x 2-3 days, then 0.5mg po daily x 2, then stop. Medical- will add US of abdomen, lipase Reason for continued inpatient stay Substantial Risk for: inability to function Time Spent With Patient Time: Total time managing care of this patient today ____ minutes.
[2023-12-20 14:37] VITALS: BMI 16.9
--- NOTE | 2023-12-20 14:53 | MHC.CLN ---
NUTRITION REGULAR DIET. REPORTS GOOD APPETITE AND EATING WELL. AGREES TO FORTIFIED ICE CREAM. ADDING MAGIC CUP BID (580 KCALS, 18 G PROTEIN). CORRECT HEIGHT=5'10 AND BMI=16.9. NUTRITION DX NON SEVERE MALNUTRITION IN THE CONTEXT OF SOCIAL BEHAVIORAL/ENVIRONMENTAL CIRCUMSTANCES. ASKED IF HE COULD HAVE 2 CHEESEBURGERS IF REQUESTED. ADVISED DINING SERVICES TO PROVIDE WHEN REQUESTED. CONTINUE REGULAR DIET WITH MAGIC CUP BID. PROVIDE FOOD PREFERENCES ABLE. FOLLOW FOR PO INTAKE AND WEIGHT. SEE CLINICAL NUTRITION ASSESSMENT 12/20/23.
[2023-12-20 14:57] LABS: Lipase < 4 U/L (8-78)
[2023-12-20 18:00] VITALS: BP 119/69; PULSE 60; RESP 18; TEMP 36.8; O2SAT 97
[2023-12-20] MEDS: Mirtazapine 30 MG TABLET PO (20:51)
[2023-12-20] MEDS: traZODone HCL 50 MG TABLET PO (20:51)
[2023-12-20] MEDS: hydrOXYzine HCL 25 MG TABLET PO (20:51)
[2023-12-20] MEDS: methADONE HCl 20 MG/2 ML ORAL.CONC 95 MG PO (20:52)
[2023-12-21] MEDS: Omeprazole 20 MG CAPSULE.DR PO (06:45)
[2023-12-21 07:00] VITALS: BMI 16.5
[2023-12-21 08:05] VITALS: BP 162/81; PULSE 62; RESP 16; TEMP 36.9; O2SAT 100
[2023-12-21] MEDS: clonazePAM 1 MG TABLET PO (08:25)
[2023-12-21] MEDS: Lipase/Prot/Amylase 24/76/120K 1 CAP CAPSULE.DR PO ×3 (08:25→16:53)
[2023-12-21] MEDS: Tiotropium Bromide 2.5 mcg 1 PUFF/2.5 MCG MIST.INHAL 2 PUFF INHALE (08:26)
[2023-12-21] MEDS: methADONE HCl 20 MG/2 ML ORAL.CONC 150 MG PO (08:30)
[2023-12-21] MEDS: Nicotine 7 MG PATCH.TD24 TRANSDERMA (08:32)
[2023-12-21] MEDS: Acetaminophen 325 MG TABLET 650 MG PO ×2 (14:12→20:29)
--- NOTE | 2023-12-21 15:55 | P.PNPSI_ITS ---
Subjective Subjective Date of Service: 12/21/23 Reason For Visit: SI Subjective Notes: Conditional Voluntary Interim History: Pt reports sleep was better last night. no abdominal pain reported today. He denies SI/HI. He reports he is not sure as to what he would like to do once feeling better. This ticket writer spoke with his PCP office. He has received most of the care while he has been admitted medically. 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 consult to nephrology ordered given finding of complex cyst on left kidney. Review of Systems Review of Systems Yes all other systems are reviewed and are negative Constitutional: Reports no additional constitutional complaints, Denies body ache(s), Denies chills, Denies fever(s), Denies headache(s) and Denies weakness Eyes: Reports no additional eye complaints and Denies change in vision Reports system reviewed and no additional complaints, except as documented, Denies dizziness, Denies headache(s), Denies nasal congestion, Denies nasal discharge and Denies neck pain Cardiovascular: Reports no additional cardiovascular complaints, Denies chest pain, Denies leg edema and Denies dyspnea Respiratory: Reports no additional respiratory complaints, Denies cough and Denies dyspnea Gastrointestinal: Reports no additional gastrointestinal complaints, Denies abdominal pain, Denies diarrhea, Denies nausea and Denies vomiting Genitourinary: Denies urinary incontinence Musculoskeletal: Reports no additional musculoskeletal complaints, Denies back pain, Denies arthralgias, Denies joint swelling, Denies neck pain, Denies numbness and Denies tingling Skin/Breast: Reports system reviewed and no additional complaints, except as docu and Denies rash Reports system reviewed and no additional complaints, except as documented, Denies Abnormal speech present, Denies dizziness, Denies headache(s), Denies numbness, Denies tingling and Denies weakness Psychiatric: Denies anxiety, Reports depression, Denies homicidal ideation and Reports suicidal ideation Mental Status Exam Mental Status Exam Narrative: Appearance:thin, malnourished, fair hygiene, in NAD Behavior:cooperative Psychomotor: no agitation or retardation noted Speech:clear, normal rate/rhythm/volume, spontaneous TP:linear TC:no signs of psychosis, feeling tired, but open to help Mood: depressed Affect:constricted SI: passive HI:none VH/AH:none Delusions:none Insight/judgment: poor x 2. Memory/cog: alert, oriented x 3.pending MOCA and ACL. Diagnostics Vital Signs (24Hr): Vital Signs - 24 hr 12/20/23 18:00 12/21/23 08:05 Temperature 98.3 F 98.5 F Pulse Rate 60 62 Respiratory Rate 18 16 Blood Pressure 119/69 162/81 H Pulse Oximetry 97 100 Oxygen Delivery Method Room Air Room Air BMI result Body Mass Index 16.5 Labs 12/18/23 12:05 12/18/23 12:05 Labs: Laboratory Results - last 48 hr 12/19/23 12/20/23 07:28 14:38 Sodium Cancelled Potassium Cancelled Chloride Cancelled Carbon Dioxide Cancelled Anion Gap Cancelled BUN Cancelled Creatinine Cancelled Estim Creat Clear Calc Cancelled Estimated GFR Cancelled Fasting Glucose Cancelled Calcium Cancelled Total Bilirubin Cancelled AST Cancelled ALT Cancelled Alkaline Phosphatase Cancelled Total Protein Cancelled Albumin Cancelled Triglycerides Cancelled Cholesterol Cancelled LDL Cholesterol, Calc Cancelled HDL Cholesterol Cancelled Lipase < 4 L TSH Cancelled Imaging Radiology Impressions: ITS Impressions Abdomen Ultrasound 12/20/23 13:05 IMPRESSION: 1. No evidence of nephrolithiasis or hydronephrosis. 2. Complex left midpole renal cyst. Recommend further characterization with abdominal MRI renal protocol. 3. 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 Medications Medications Current Medications Acetaminophen (Acetaminophen 325 Mg Tablet) 650 mg PO Q6H PRN PRN Reason: Headache/Pain Mild Scale (1-3) Last Admin: 12/21/23 14:12 Dose: 650 mg Al Hydroxide/Mg Hydroxide (Magnesium Hydrox/Alum Hydrox 30 Ml Oral.Susp) 30 ml PO Q6H PRN PRN Reason: Heartburn/Nausea Lipase/Protease/Amylase (Lipase/Prot/Amylase 24/76/120k 1 Cap Capsule.Dr) 1 cap PO TIDWM SKIP Last Admin: 12/21/23 11:58 Dose: 1 cap Clonazepam (Clonazepam 1 Mg Tablet) 1 mg PO BID SKIP Last Admin: 12/21/23 08:25 Dose: 1 mg Hydroxyzine HCl (Hydroxyzine Hcl 25 Mg Tablet) 25 mg PO Q6H PRN PRN Reason: Anxiety Last Admin: 12/20/23 20:51 Dose: 25 mg Magnesium Hydroxide (Milk Of Magnesia 30 Ml Oral.Susp) 30 ml PO DAILY PRN PRN Reason: Constipation Methadone HCl (Methadone Hcl 20 Mg/2 Ml Oral.Conc) 95 mg PO BEDTIME [facility] Last Admin: 12/20/23 20:52 Dose: 95 mg Methadone HCl (Methadone Hcl 20 Mg/2 Ml Oral.Conc) 150 mg PO DAILY [facility] Last Admin: 12/21/23 08:30 Dose: 150 mg Mirtazapine (Mirtazapine 30 Mg Tablet) 30 mg PO BEDTIME [facility] Last Admin: 12/20/23 20:51 Dose: 30 mg Naloxone HCl (Naloxone Hcl Nasal 4 Mg [place]) 4 mg NOSTRILALT DAILY PRN PRN Reason: opioid overdose Nicotine (Nicotine 7 Mg Patch.Td24) 7 mg TRANSDERMA DAILY [facility] Last Admin: 12/21/23 08:32 Dose: 7 mg Omeprazole (Omeprazole 20 Mg Capsule.Dr) 20 mg PO DAILY@0630 [facility] Last Admin: 12/21/23 06:45 Dose: 20 mg Tiotropium [place] (Tiotropium [place] 2.5 Mcg 1 Puff/2.5 Mcg Mist.Inhal) 2 puff INHALE RDAILY [facility] Last Admin: 12/21/23 08:26 Dose: 2 puff Trazodone HCl (Trazodone Hcl 50 Mg Tablet) 50 mg PO BEDTIME MRX1 PRN PRN Reason: Insomnia Last Admin: 12/20/23 20:51 Dose: 50 mg Allergies Allergies Allergy/AdvReac Type Severity Reaction Status Date / Time Penicillins [PENICILLINS] Allergy Unknown UNKNOWN, Verified 12/16/23 20:14 rash Assessment & Plan Assessment & Plan (1) MDD (major depressive disorder), recurrent episode, moderate: Status: Acute Code(s): F33.1 - Major depressive disorder, recurrent, moderate (2) Benzodiazepine dependence, continuous: Status: Acute Code(s): F13.20 - Sedative, hypnotic or anxiolytic dependence, uncomplicated Assessment and Plan: ON TAPER--> WILL NOT BE DISCHARGED ON RX FOR BENZO (3) Opioid use disorder, severe, dependence: Status: Acute Code(s): F11.20 - Opioid dependence, uncomplicated Plan Mr. Spears is a 68 year-old male with hx of MDD, long hx of opioid, benzodiazepine dependence who self presented to [facility] reporting increase depression, SI in context of multiple stressors but mostly ongoing use of substances which are affecting his quality of life and health. Utox positive for fentanyl, opiods, cocaine, cannabinoids and benzodiazepine. Pt also reports poor memory, will obtain MOCA and ACL. He is unsure as to treatment for substance use he is ready to engage in. But is open to additional supports. We discussed risks, benefits and alternative treatment options, will start remeron 30mg po qhs for mood and sleep. WIll do clonazepam taper--> given high dose of methadone-- monitor respiratory status, also ordered narcan in event of respiratory suppression. Will do clonazepam 1mg po BID x 2 days, then 0.5mg po BID x 2-3 days, then 0.5mg po daily x 2, then stop. PLAN 1. Admit S1, CV and 15 minutes checks for safety 12/20: continue remeron 30mg po qhs continue Benzodiazepine taper--> clonazepam 1mg po BID x 2 days, then 0.5mg po BID x 2-3 days, then 0.5mg po daily x 2, then stop. Medical- will add US of abdomen, lipase 12/21 consult for nephrology ordered finding of US that showed complex cyst on left kidney. Reason for continued inpatient stay Substantial Risk for: inability to function Time Spent With Patient Time: Total time managing care of this patient today ____ minutes.
[2023-12-21 18:00] VITALS: BP 120/70; PULSE 60; RESP 18; TEMP 36.6; O2SAT 98
[2023-12-21] MEDS: methADONE HCl 20 MG/2 ML ORAL.CONC 95 MG PO (20:29)
[2023-12-21] MEDS: clonazePAM 0.5 MG TABLET PO (20:29)
[2023-12-21] MEDS: Mirtazapine 30 MG TABLET PO (20:29)
[2023-12-21] MEDS: traZODone HCL 50 MG TABLET PO (20:29)
[2023-12-21] MEDS: hydrOXYzine HCL 25 MG TABLET PO (20:29)
[2023-12-22] MEDS: Omeprazole 20 MG CAPSULE.DR PO (06:47)
[2023-12-22] MEDS: clonazePAM 0.5 MG TABLET PO ×2 (07:54→20:17)
[2023-12-22] MEDS: Lipase/Prot/Amylase 24/76/120K 1 CAP CAPSULE.DR PO ×3 (07:54→16:48)
[2023-12-22] MEDS: methADONE HCl 20 MG/2 ML ORAL.CONC 150 MG PO (07:55)
[2023-12-22] MEDS: Tiotropium Bromide 2.5 mcg 1 PUFF/2.5 MCG MIST.INHAL 2 PUFF INHALE (07:57)
[2023-12-22] MEDS: Nicotine 7 MG PATCH.TD24 TRANSDERMA (07:58)
[2023-12-22 08:18] LABS: Cholesterol 146 mg/dL (<200); HDL Cholesterol 39 mg/dL (>40); LDL Cholesterol Calculated 90 mg/dL (<100); Triglycerides 89 mg/dL (<150)
[2023-12-22 09:05] LABS: Free T4 (Free Thyroxine) 0.86 ng/dL (0.71-1.85)
--- NOTE | 2023-12-22 09:06 | HO.PSYCHPN ---
Subjective Subjective Date of Service: 12/22/23 Reason For Visit: SI Subjective Notes: Conditional Voluntary Interim History: Pt reports sleeping better. He reports mood is better and denies SI/HI. He also denies VH/AH. We had a long conversation about his hx of substance use and recovery. Pt reports at this point he is more interested in harm reduction that going into a residential substance use treatment or meeting with wellness health coach. He is concern about his health. He does know that he has not been consistent with care but we also had conversation that he may also have underlying cognitive and memory impairments (pending MOCA and ACL). This group underwriter let him know conversation with his PCP office- they would like to see him more often but at least given that they are in the [facility] system they can see when he has been medically admitted. He was seen by nephrology today. He has been visible on the unit. No behavioral concerns. He is taking medications as prescribed. Review of Systems Review of Systems Yes all other systems are reviewed and are negative Constitutional: Reports no additional constitutional complaints, Denies body ache(s), Denies chills, Denies fever(s), Denies headache(s) and Denies weakness Eyes: Reports no additional eye complaints and Denies change in vision Reports system reviewed and no additional complaints, except as documented, Denies dizziness, Denies headache(s), Denies nasal congestion, Denies nasal discharge and Denies neck pain Cardiovascular: Reports no additional cardiovascular complaints, Denies chest pain, Denies leg edema and Denies dyspnea Respiratory: Reports no additional respiratory complaints, Denies cough and Denies dyspnea Gastrointestinal: Reports no additional gastrointestinal complaints, Denies abdominal pain, Denies diarrhea, Denies nausea and Denies vomiting Genitourinary: Denies urinary incontinence Musculoskeletal: Reports no additional musculoskeletal complaints, Denies back pain, Denies arthralgias, Denies joint swelling, Denies neck pain, Denies numbness and Denies tingling Skin/Breast: Reports system reviewed and no additional complaints, except as docu and Denies rash Reports system reviewed and no additional complaints, except as documented, Denies Abnormal speech present, Denies dizziness, Denies headache(s), Denies numbness, Denies tingling and Denies weakness Psychiatric: Denies anxiety, Reports depression, Denies homicidal ideation and Reports suicidal ideation Mental Status Exam Mental Status Exam Narrative: Appearance:thin, malnourished, fair hygiene, in NAD Behavior:cooperative Psychomotor: no agitation or retardation noted Speech:clear, normal rate/rhythm/volume, spontaneous TP:linear TC:no signs of psychosis, feeling tired, but open to help Mood: better Affect:constricted SI:denies HI:none VH/AH:none Delusions:none Insight/judgment: poor x 2. Memory/cog: alert, oriented x 3.pending MOCA and ACL. Diagnostics Vital Signs (24Hr): Vital Signs - 24 hr 12/21/23 18:00 Temperature 97.8 F Pulse Rate 60 Respiratory Rate 18 Blood Pressure 120/70 Pulse Oximetry 98 Oxygen Delivery Method Room Air BMI result Body Mass Index 16.5 Labs 12/18/23 12:05 12/18/23 12:05 Labs: Laboratory Results - last 48 hr 12/20/23 12/22/23 14:38 07:44 Triglycerides 89 Cholesterol 146 LDL Cholesterol, Calc 90 HDL Cholesterol 39 L Lipase < 4 L TSH 5.50 H Free T4 0.86 Imaging Radiology Impressions: ITS Impressions Abdomen Ultrasound 12/20/23 13:05 IMPRESSION: 1. No evidence of nephrolithiasis or hydronephrosis. 2. Complex left midpole renal cyst. Recommend further characterization with abdominal MRI renal protocol. 3. 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 Medications Medications Current Medications Acetaminophen (Acetaminophen 325 Mg Tablet) 650 mg PO Q6H PRN PRN Reason: Headache/Pain Mild Scale (1-3) Last Admin: 12/21/23 20:29 Dose: 650 mg Al Hydroxide/Mg Hydroxide (Magnesium Hydrox/Alum Hydrox 30 Ml Oral.Susp) 30 ml PO Q6H PRN PRN Reason: Heartburn/Nausea Lipase/Protease/Amylase (Lipase/Prot/Amylase 24/76/120k 1 Cap Capsule.Dr) 1 cap PO TIDWM SKIP Last Admin: 12/22/23 07:54 Dose: 1 cap Clonazepam (Clonazepam 0.5 Mg Tablet) 0.5 mg PO BID SKIP Last Admin: 12/22/23 07:54 Dose: 0.5 mg Hydroxyzine HCl (Hydroxyzine Hcl 25 Mg Tablet) 25 mg PO Q6H PRN PRN Reason: Anxiety Last Admin: 12/21/23 20:29 Dose: 25 mg Magnesium Hydroxide (Milk Of Magnesia 30 Ml Oral.Susp) 30 ml PO DAILY PRN PRN Reason: Constipation Methadone HCl (Methadone Hcl 20 Mg/2 Ml Oral.Conc) 95 mg PO BEDTIME [facility] Last Admin: 12/21/23 20:29 Dose: 95 mg Methadone HCl (Methadone Hcl 20 Mg/2 Ml Oral.Conc) 150 mg PO DAILY [facility] Last Admin: 12/22/23 07:55 Dose: 150 mg Mirtazapine (Mirtazapine 30 Mg Tablet) 30 mg PO BEDTIME [facility] Last Admin: 12/21/23 20:29 Dose: 30 mg Naloxone HCl (Naloxone Hcl Nasal 4 Mg [place]) 4 mg NOSTRILALT DAILY PRN PRN Reason: opioid overdose Nicotine (Nicotine 7 Mg Patch.Td24) 7 mg TRANSDERMA DAILY [facility] Last Admin: 12/22/23 07:58 Dose: 7 mg Omeprazole (Omeprazole 20 Mg Capsule.Dr) 20 mg PO DAILY@0630 [facility] Last Admin: 12/22/23 06:47 Dose: 20 mg Tiotropium [place] (Tiotropium [place] 2.5 Mcg 1 Puff/2.5 Mcg Mist.Inhal) 2 puff INHALE RDAILY [facility] Last Admin: 12/22/23 07:57 Dose: 2 puff Trazodone HCl (Trazodone Hcl 50 Mg Tablet) 50 mg PO BEDTIME MRX1 PRN PRN Reason: Insomnia Last Admin: 12/21/23 20:29 Dose: 50 mg Allergies Allergies Allergy/AdvReac Type Severity Reaction Status Date / Time Penicillins [PENICILLINS] Allergy Unknown UNKNOWN, Verified 12/16/23 20:14 rash Assessment & Plan Assessment & Plan (1) MDD (major depressive disorder), recurrent episode, moderate: Status: Acute Code(s): F33.1 - Major depressive disorder, recurrent, moderate (2) Benzodiazepine dependence, continuous: Status: Acute Code(s): F13.20 - Sedative, hypnotic or anxiolytic dependence, uncomplicated Assessment and Plan: ON TAPER--> WILL NOT BE DISCHARGED ON RX FOR BENZO (3) Opioid use disorder, severe, dependence: Status: Acute Code(s): F11.20 - Opioid dependence, uncomplicated Plan Mr. Spears is a 68 year-old male with hx of MDD, long hx of opioid, benzodiazepine dependence who self presented to [facility] reporting increase depression, SI in context of multiple stressors but mostly ongoing use of substances which are affecting his quality of life and health. Utox positive for fentanyl, opiods, cocaine, cannabinoids and benzodiazepine. Pt also reports poor memory, will obtain MOCA and ACL. He is unsure as to treatment for substance use he is ready to engage in. But is open to additional supports. We discussed risks, benefits and alternative treatment options, will start remeron 30mg po qhs for mood and sleep. WIll do clonazepam taper--> given high dose of methadone-- monitor respiratory status, also ordered narcan in event of respiratory suppression. Will do clonazepam 1mg po BID x 2 days, then 0.5mg po BID x 2-3 days, then 0.5mg po daily x 2, then stop. PLAN 1. Admit S1, CV and 15 minutes checks for safety 12/20: continue remeron 30mg po qhs continue Benzodiazepine taper--> clonazepam 1mg po BID x 2 days, then 0.5mg po BID x 2-3 days, then 0.5mg po daily x 2, then stop. Medical- will add US of abdomen, lipase 12/21 consult for nephrology ordered finding of US that showed complex cyst on left kidney. 12/22 continue tx. Reason for continued inpatient stay Substantial Risk for: harm to self Time Spent With Patient Time: Total time managing care of this patient today ____ minutes.
[2023-12-22 09:14] VITALS: BP 126/71; PULSE 91; RESP 18; TEMP 36.4; O2SAT 94
--- NOTE | 2023-12-22 12:18 | MHC.CLN ---
F/U DIET=REGULAR. INTAKE USUALLY 100%. MAGIC CUP BID PROVIDES ADDITIONAL 580 KCALS, 18 G PROTEIN. CONTINUE TO PROVIDE FOOD CHOICES ABLE. FOLLOW FOR PO INTAKE AND WEIGHT. RD TO FOLLOWUP WEEKLY.
[2023-12-22] MEDS: Acetaminophen 325 MG TABLET 650 MG PO (13:59)
--- NOTE | 2023-12-22 19:11 | PM.CNNEP ---
History of Present Illness Reason for Consult Consult date: 12/22/23 Reason for consult: Renal Cyst Chief Complaint Chief complaint: SI History of Present Illness Narrative: 68 year old gentleman who had H/O depression, polysubstance abuse disorder admitted under psychiatry services for its management. Underwent renal USS and found to have left midpole renal cyst. His renal functions are normal. He is not hypertensive. He has no night sweats, hematuria. No family H/O renal cysts or renal disease. Nephrology has been consulted to assist in his clinical care during his current hospital stay Review of Systems Review of Systems Yes all other systems are reviewed and are negative [facility] Past Medical History Medical History Substance abuse Cervical spine fracture Pancreatic cancer Social History Social History Household Members: None Housing: Apartment Do you presently have visiting nurse or other home services: No Alcohol intake: current Alcohol intake frequency: holidays/special occasions only Alcohol type: beer and hard liquor Patient Tobacco Use Status: Current everyday Tobacco user Tobacco use type: Cigarette Cigarettes Per Day: 5 Smoked in Last 30 Days: Yes Patient Interested in Nicotine Replacement: Yes (Pt would like nicotine patch.) Patient Given Instructions on How to Stop Smoking: No Second Hand Smoke Exposure: Yes Substance Use Type: Opiates and Sedatives Substance Use Type Other:: fentanyl Substance Use Frequency: Daily Last Used Substance: Just Prior to Admission Currently Displaying Signs/Symptoms of Drug Intoxication Withdrawal: No Any prior treatment program specific to substance use: No Have you been hit, kicked, punched, or otherwise hurt by someone within the past year? If so, by whom?: No Do you feel safe in your current relationship?: No Current Relationship Is there a partner from a previous relationship who is making you feel unsafe now?: No Are you made to feel afraid or neglected: No Advance Directives: No Advance Directives Information Provided: No Do you have thoughts of harming others: None Do you have a plan to hurt others: No Plan Recently lost weight without trying: Yes How much weight loss: 14-23 pounds Eating poorly because of decreased appetite: No Nutrition screen score: 4 Nutrition Risks: Poor intake 0-25% >4 days Poor oral hygiene: No service: No Sexual orientation: Straight/Heterosexual Meds Allergies Allergy/AdvReac Type Severity Reaction Status Date / Time Penicillins [PENICILLINS] Allergy Unknown UNKNOWN, Verified 12/16/23 20:14 rash Active Medications: Current Medications Acetaminophen (Acetaminophen 325 Mg Tablet) 650 mg PO Q6H PRN PRN Reason: Headache/Pain Mild Scale (1-3) Last Admin: 12/22/23 13:59 Dose: 650 mg Al Hydroxide/Mg Hydroxide (Magnesium Hydrox/Alum Hydrox 30 Ml Oral.Susp) 30 ml PO Q6H PRN PRN Reason: Heartburn/Nausea Lipase/Protease/Amylase (Lipase/Prot/Amylase 24/76/120k 1 Cap Capsule.) 1 cap PO TIDWM [facility] Last Admin: 12/22/23 16:48 Dose: 1 cap Clonazepam (Clonazepam 0.5 Mg Tablet) 0.5 mg PO BID [facility] Last Admin: 12/22/23 07:54 Dose: 0.5 mg Hydroxyzine HCl (Hydroxyzine Hcl 25 Mg Tablet) 25 mg PO Q6H PRN PRN Reason: Anxiety Last Admin: 12/21/23 20:29 Dose: 25 mg Magnesium Hydroxide (Milk Of Magnesia 30 Ml Oral.Susp) 30 ml PO DAILY PRN PRN Reason: Constipation Methadone HCl (Methadone Hcl 20 Mg/2 Ml Oral.Conc) 95 mg PO BEDTIME [facility] Last Admin: 12/21/23 20:29 Dose: 95 mg Methadone HCl (Methadone Hcl 20 Mg/2 Ml Oral.Conc) 150 mg PO DAILY [facility] Last Admin: 12/22/23 07:55 Dose: 150 mg Mirtazapine (Mirtazapine 30 Mg Tablet) 30 mg PO BEDTIME [facility] Last Admin: 12/21/23 20:29 Dose: 30 mg Naloxone HCl (Naloxone Hcl Nasal 4 Mg [place]) 4 mg NOSTRILALT DAILY PRN PRN Reason: opioid overdose Nicotine (Nicotine 7 Mg Patch.Td24) 7 mg TRANSDERMA DAILY [facility] Last Admin: 12/22/23 07:58 Dose: 7 mg Omeprazole (Omeprazole 20 Mg Capsule.) 20 mg PO DAILY@0630 [facility] Last Admin: 12/22/23 06:47 Dose: 20 mg Tiotropium [place] (Tiotropium [place] 2.5 Mcg 1 Puff/2.5 Mcg Mist.Inhal) 2 puff INHALE RDAILY [facility] Last Admin: 12/22/23 07:57 Dose: 2 puff Trazodone HCl (Trazodone Hcl 50 Mg Tablet) 50 mg PO BEDTIME MRX1 PRN PRN Reason: Insomnia Last Admin: 12/21/23 20:29 Dose: 50 mg Home Medications Medication Instructions Recorded Confirmed Last Taken Type methadone 10 mg/mL oral concentrate 150 mg PO QAM 06/11/21 12/17/23 12/16/23 07:06 History gabapentin 300 mg capsule 300 mg PO TID 12/17/23 12/17/23 Unknown History methadone 10 mg/mL oral concentrate 95 mg PO QPM 12/17/23 12/17/23 12/15/23 20:00 History mirtazapine 15 mg tablet 15 mg PO BEDTIME 12/17/23 12/17/23 Unknown History omeprazole 20 mg capsule,delayed 20 mg PO DAILY 12/17/23 12/17/23 Unknown History release Physical Exam Vital Signs: Last Vital Signs Temp 97.5 F 12/22/23 09:14 Pulse 91 12/22/23 09:14 Resp 18 12/22/23 09:14 BP 126/71 12/22/23 09:14 Pulse Ox 94 12/22/23 09:14 O2 Del Method Room Air 12/22/23 09:14 BMI result Body Mass Index 16.5 Const General: comfortable and no acute distress Orientation/consciousness: patient oriented x3 HEENT Head: Yes normocephalic Mouth: Normal oral and palatal mucosa present Eyes EOM: EOMs intact bilaterally Neck Neck: Yes supple Resp Auscultation: clear to auscultation bilaterally Cardio Jugular venous distension: no JVD Rate: regular rate GI Palpation (GI): Soft to palpation Auscultation: normal bowel sounds General: Yes no CVA tenderness Back/Spine/Pelvis Back: no CVA tenderness Skin General skin exam: no rashes or lesions noted Neuro General: patient oriented x3 and moves all extremities Extrem General: Yes no pedal edema Results Lab Results 12/18/23 12:05 12/18/23 12:05 Lab results: Chemistry 12/19/23 07:28 Sodium Cancelled Potassium Cancelled Carbon Dioxide Cancelled BUN Cancelled Creatinine Cancelled Calcium Cancelled Assessment and Plan (1) Complex renal cyst: Status: Acute Plan Renal function normal; NO hypertension. No hematuria Shall arrange outpatient MRI of kidneys when he's D/[facility] W[facility] need follow up with us in a few months after D/C NO intervention needed now. Thank you for allowing [facility] to be part of his clinical care Procedures Date of Service Date of Service: 12/22/23
[2023-12-22 20:13] VITALS: BP 144/79; PULSE 60; RESP 18; TEMP 37.3; O2SAT 99
[2023-12-22] MEDS: Mirtazapine 30 MG TABLET PO (20:17)
[2023-12-22] MEDS: methADONE HCl 20 MG/2 ML ORAL.CONC 95 MG PO (20:18)
[2023-12-23] MEDS: Omeprazole 20 MG CAPSULE.DR PO (06:20)
[2023-12-23 08:10] VITALS: BP 124/74; PULSE 60; RESP 17; TEMP 36.6; O2SAT 96
[2023-12-23] MEDS: Nicotine 7 MG PATCH.TD24 TRANSDERMA (09:42)
[2023-12-23] MEDS: Lipase/Prot/Amylase 24/76/120K 1 CAP CAPSULE.DR PO ×3 (09:42→16:36)
[2023-12-23] MEDS: Tiotropium Bromide 2.5 mcg 1 PUFF/2.5 MCG MIST.INHAL 2 PUFF INHALE (09:42)
[2023-12-23] MEDS: clonazePAM 0.5 MG TABLET PO ×2 (09:42→20:33)
[2023-12-23] MEDS: methADONE HCl 20 MG/2 ML ORAL.CONC 150 MG PO (09:44)
--- NOTE | 2023-12-23 17:18 | HO.PSYCHPN ---
Subjective Subjective Date of Service: 12/23/23 Reason For Visit: SI Subjective Notes: Conditional Voluntary Interim History: Pt reports sleeping better. He denies SI/HI. He reports mood is better. He has been visible on the unit. No behavioral concerns. nephrology met with pt, recommended follow up OP. Review of Systems Review of Systems Yes all other systems are reviewed and are negative Constitutional: Reports no additional constitutional complaints, Denies body ache(s), Denies chills, Denies fever(s), Denies headache(s) and Denies weakness Eyes: Reports no additional eye complaints and Denies change in vision Reports system reviewed and no additional complaints, except as documented, Denies dizziness, Denies headache(s), Denies nasal congestion, Denies nasal discharge and Denies neck pain Cardiovascular: Reports no additional cardiovascular complaints, Denies chest pain, Denies leg edema and Denies dyspnea Respiratory: Reports no additional respiratory complaints, Denies cough and Denies dyspnea Gastrointestinal: Reports no additional gastrointestinal complaints, Denies abdominal pain, Denies diarrhea, Denies nausea and Denies vomiting Genitourinary: Denies urinary incontinence Musculoskeletal: Reports no additional musculoskeletal complaints, Denies back pain, Denies arthralgias, Denies joint swelling, Denies neck pain, Denies numbness and Denies tingling Skin/Breast: Reports system reviewed and no additional complaints, except as docu and Denies rash Reports system reviewed and no additional complaints, except as documented, Denies Abnormal speech present, Denies dizziness, Denies headache(s), Denies numbness, Denies tingling and Denies weakness Psychiatric: Denies anxiety, Reports depression, Denies homicidal ideation and Reports suicidal ideation Mental Status Exam Mental Status Exam Narrative: Appearance:thin, malnourished, fair hygiene, in NAD Behavior:cooperative Psychomotor: no agitation or retardation noted Speech:clear, normal rate/rhythm/volume, spontaneous TP:linear TC:no signs of psychosis, feeling tired, but open to help Mood: better Affect:constricted SI:denies HI:none VH/AH:none Delusions:none Insight/judgment: poor x 2. Memory/cog: alert, oriented x 3.pending MOCA and ACL. Diagnostics Vital Signs (24Hr): Vital Signs - 24 hr 12/22/23 20:13 12/23/23 08:10 Temperature 99.1 F 97.9 F Pulse Rate 60 60 Respiratory Rate 18 17 Blood Pressure 144/79 H 124/74 Pulse Oximetry 99 96 Oxygen Delivery Method Room Air Room Air BMI result Body Mass Index 16.5 Labs 12/18/23 12:05 12/18/23 12:05 Labs: Laboratory Results - last 48 hr 12/22/23 07:44 Triglycerides 89 Cholesterol 146 LDL Cholesterol, Calc 90 HDL Cholesterol 39 L TSH 5.50 H Free T4 0.86 Imaging Radiology Impressions: ITS Impressions Abdomen Ultrasound 12/20/23 13:05 IMPRESSION: 1. No evidence of nephrolithiasis or hydronephrosis. 2. Complex left midpole renal cyst. Recommend further characterization with abdominal MRI renal protocol. 3. 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 Medications Medications Current Medications Acetaminophen (Acetaminophen 325 Mg Tablet) 650 mg PO Q6H PRN PRN Reason: Headache/Pain Mild Scale (1-3) Last Admin: 12/22/23 13:59 Dose: 650 mg Al Hydroxide/Mg Hydroxide (Magnesium Hydrox/Alum Hydrox 30 Ml Oral.Susp) 30 ml PO Q6H PRN PRN Reason: Heartburn/Nausea Lipase/Protease/Amylase (Lipase/Prot/Amylase 24/76/120k 1 Cap Capsule.Dr) 1 cap PO TIDWM [facility] Last Admin: 12/23/23 16:36 Dose: 1 cap Clonazepam (Clonazepam 0.5 Mg Tablet) 0.5 mg PO BID [facility] Last Admin: 12/23/23 09:42 Dose: 0.5 mg Hydroxyzine HCl (Hydroxyzine Hcl 25 Mg Tablet) 25 mg PO Q6H PRN PRN Reason: Anxiety Last Admin: 12/21/23 20:29 Dose: 25 mg Magnesium Hydroxide (Milk Of Magnesia 30 Ml Oral.Susp) 30 ml PO DAILY PRN PRN Reason: Constipation Methadone HCl (Methadone Hcl 20 Mg/2 Ml Oral.Conc) 95 mg PO BEDTIME [facility] Last Admin: 12/22/23 20:18 Dose: 95 mg Methadone HCl (Methadone Hcl 20 Mg/2 Ml Oral.Conc) 150 mg PO DAILY [facility] Last Admin: 12/23/23 09:44 Dose: 150 mg Mirtazapine (Mirtazapine 30 Mg Tablet) 30 mg PO BEDTIME [facility] Last Admin: 12/22/23 20:17 Dose: 30 mg Naloxone HCl (Naloxone Hcl Nasal 4 Mg [place]) 4 mg NOSTRILALT DAILY PRN PRN Reason: opioid overdose Nicotine (Nicotine 7 Mg Patch.Td24) 7 mg TRANSDERMA DAILY [facility] Last Admin: 12/23/23 09:42 Dose: 7 mg Omeprazole (Omeprazole 20 Mg Capsule.Dr) 20 mg PO DAILY@0630 [facility] Last Admin: 12/23/23 06:20 Dose: 20 mg Tiotropium [place] (Tiotropium [place] 2.5 Mcg 1 Puff/2.5 Mcg Mist.Inhal) 2 puff INHALE RDAILY [facility] Last Admin: 12/23/23 09:42 Dose: 2 puff Trazodone HCl (Trazodone Hcl 50 Mg Tablet) 50 mg PO BEDTIME MRX1 PRN PRN Reason: Insomnia Last Admin: 12/21/23 20:29 Dose: 50 mg Allergies Allergies Allergy/AdvReac Type Severity Reaction Status Date / Time Penicillins [PENICILLINS] Allergy Unknown UNKNOWN, Verified 12/16/23 20:14 rash Assessment & Plan Assessment & Plan (1) MDD (major depressive disorder), recurrent episode, moderate: Status: Acute Code(s): F33.1 - Major depressive disorder, recurrent, moderate (2) Benzodiazepine dependence, continuous: Status: Acute Code(s): F13.20 - Sedative, hypnotic or anxiolytic dependence, uncomplicated (3) Opioid use disorder, severe, dependence: Status: Acute Code(s): F11.20 - Opioid dependence, uncomplicated Plan Renal function normal; NO hypertension. No hematuria Shall arrange outpatient MRI of kidneys when he's D/[facility] W[facility] need follow up with us in a few months after D/C NO intervention needed now. Thank you for allowing [facility] to be part of his clinical care Reason for continued inpatient stay Substantial Risk for: inability to function Time Spent With Patient Time: Total time managing care of this patient today ____ minutes.
[2023-12-23 19:40] VITALS: BP 130/76; PULSE 60; RESP 16; TEMP 36.9; O2SAT 97
[2023-12-23] MEDS: Mirtazapine 30 MG TABLET PO (20:33)
[2023-12-23] MEDS: methADONE HCl 20 MG/2 ML ORAL.CONC 95 MG PO (20:33)
[2023-12-24] MEDS: Omeprazole 20 MG CAPSULE.DR PO (06:11)
[2023-12-24 07:45] VITALS: BP 155/85; PULSE 68; RESP 18; TEMP 36.8; O2SAT 98
[2023-12-24] MEDS: Nicotine 7 MG PATCH.TD24 TRANSDERMA (08:30)
[2023-12-24] MEDS: clonazePAM 0.5 MG TABLET PO ×2 (08:30→20:01)
[2023-12-24] MEDS: methADONE HCl 20 MG/2 ML ORAL.CONC 150 MG PO (08:30)
[2023-12-24] MEDS: Lipase/Prot/Amylase 24/76/120K 1 CAP CAPSULE.DR PO ×3 (08:30→16:30)
[2023-12-24] MEDS: Tiotropium Bromide 2.5 mcg 1 PUFF/2.5 MCG MIST.INHAL 2 PUFF INHALE (08:38)
[2023-12-24] MEDS: hydrOXYzine HCL 25 MG TABLET PO (14:06)
--- NOTE | 2023-12-24 15:31 | HO.PSYCHPN ---
Subjective Subjective Date of Service: 12/24/23 Reason For Visit: SI Interim History: Pt reports sleeping better. He denies SI/HI. He reports mood is better. He has been visible on the unit. No behavioral concerns. nephrology met with pt, recommended follow up OP. Review of Systems Review of Systems Yes all other systems are reviewed and are negative Constitutional: Reports no additional constitutional complaints, Denies body ache(s), Denies chills, Denies fever(s), Denies headache(s) and Denies weakness Eyes: Reports no additional eye complaints and Denies change in vision Reports system reviewed and no additional complaints, except as documented, Denies dizziness, Denies headache(s), Denies nasal congestion, Denies nasal discharge and Denies neck pain Cardiovascular: Reports no additional cardiovascular complaints, Denies chest pain, Denies leg edema and Denies dyspnea Respiratory: Reports no additional respiratory complaints, Denies cough and Denies dyspnea Gastrointestinal: Reports no additional gastrointestinal complaints, Denies abdominal pain, Denies diarrhea, Denies nausea and Denies vomiting Genitourinary: Denies urinary incontinence Musculoskeletal: Reports no additional musculoskeletal complaints, Denies back pain, Denies arthralgias, Denies joint swelling, Denies neck pain, Denies numbness and Denies tingling Skin/Breast: Reports system reviewed and no additional complaints, except as docu and Denies rash Reports system reviewed and no additional complaints, except as documented, Denies Abnormal speech present, Denies dizziness, Denies headache(s), Denies numbness, Denies tingling and Denies weakness Psychiatric: Denies anxiety, Reports depression, Denies homicidal ideation and Reports suicidal ideation Mental Status Exam Mental Status Exam Narrative: Appearance:thin, malnourished, fair hygiene, in NAD Behavior:cooperative Psychomotor: no agitation or retardation noted Speech:clear, normal rate/rhythm/volume, spontaneous TP:linear TC:no signs of psychosis, feeling tired, but open to help Mood: better Affect:constricted SI:denies HI:none VH/AH:none Delusions:none Insight/judgment: poor x 2. Memory/cog: alert, oriented x 3.pending MOCA and ACL. Diagnostics Vital Signs (24Hr): Vital Signs - 24 hr 12/23/23 19:40 12/24/23 07:45 Temperature 98.4 F 98.2 F Pulse Rate 60 68 Respiratory Rate 16 18 Blood Pressure 130/76 155/85 H Pulse Oximetry 97 98 Oxygen Delivery Method Room Air Room Air BMI result Body Mass Index 16.5 Labs 12/18/23 12:05 12/18/23 12:05 Imaging Radiology Impressions: ITS Impressions Abdomen Ultrasound 12/20/23 13:05 IMPRESSION: 1. No evidence of nephrolithiasis or hydronephrosis. 2. Complex left midpole renal cyst. Recommend further characterization with abdominal MRI renal protocol. 3. 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 Medications Medications Current Medications Acetaminophen (Acetaminophen 325 Mg Tablet) 650 mg PO Q6H PRN PRN Reason: Headache/Pain Mild Scale (1-3) Last Admin: 12/22/23 13:59 Dose: 650 mg Al Hydroxide/Mg Hydroxide (Magnesium Hydrox/Alum Hydrox 30 Ml Oral.Susp) 30 ml PO Q6H PRN PRN Reason: Heartburn/Nausea Lipase/Protease/Amylase (Lipase/Prot/Amylase 24/76/120k 1 Cap Capsule.Dr) 1 cap PO TIDWM [facility] Last Admin: 12/24/23 13:32 Dose: 1 cap Clonazepam (Clonazepam 0.5 Mg Tablet) 0.5 mg PO BID [facility] Last Admin: 12/24/23 08:30 Dose: 0.5 mg Hydroxyzine HCl (Hydroxyzine Hcl 25 Mg Tablet) 25 mg PO Q6H PRN PRN Reason: Anxiety Last Admin: 12/24/23 14:06 Dose: 25 mg Magnesium Hydroxide (Milk Of Magnesia 30 Ml Oral.Susp) 30 ml PO DAILY PRN PRN Reason: Constipation Methadone HCl (Methadone Hcl 20 Mg/2 Ml Oral.Conc) 95 mg PO BEDTIME [facility] Last Admin: 12/23/23 20:33 Dose: 95 mg Methadone HCl (Methadone Hcl 20 Mg/2 Ml Oral.Conc) 150 mg PO DAILY [facility] Last Admin: 12/24/23 08:30 Dose: 150 mg Mirtazapine (Mirtazapine 30 Mg Tablet) 30 mg PO BEDTIME [facility] Last Admin: 12/23/23 20:33 Dose: 30 mg Naloxone HCl (Naloxone Hcl Nasal 4 Mg [place]) 4 mg NOSTRILALT DAILY PRN PRN Reason: opioid overdose Nicotine (Nicotine 7 Mg Patch.Td24) 7 mg TRANSDERMA DAILY [facility] Last Admin: 12/24/23 08:30 Dose: 7 mg Omeprazole (Omeprazole 20 Mg Capsule.Dr) 20 mg PO DAILY@0630 [facility] Last Admin: 12/24/23 06:11 Dose: 20 mg Tiotropium [place] (Tiotropium [place] 2.5 Mcg 1 Puff/2.5 Mcg Mist.Inhal) 2 puff INHALE RDAILY [facility] Last Admin: 12/24/23 08:38 Dose: 2 puff Trazodone HCl (Trazodone Hcl 50 Mg Tablet) 50 mg PO BEDTIME MRX1 PRN PRN Reason: Insomnia Last Admin: 12/21/23 20:29 Dose: 50 mg Allergies Allergies Allergy/AdvReac Type Severity Reaction Status Date / Time Penicillins [PENICILLINS] Allergy Unknown UNKNOWN, Verified 12/16/23 20:14 rash Assessment & Plan Assessment & Plan (1) MDD (major depressive disorder), recurrent episode, moderate: Status: Acute Code(s): F33.1 - Major depressive disorder, recurrent, moderate (2) Opioid use disorder, severe, dependence: Status: Acute Code(s): F11.20 - Opioid dependence, uncomplicated (3) Benzodiazepine dependence, continuous: Status: Acute Code(s): F13.20 - Sedative, hypnotic or anxiolytic dependence, uncomplicated Plan 12/24 continue tx. Reason for continued inpatient stay Substantial Risk for: harm to self Time Spent With Patient Time: Total time managing care of this patient today ____ minutes.
[2023-12-24 18:00] VITALS: BP 156/82; PULSE 60; RESP 16; TEMP 37.4; O2SAT 97
[2023-12-24] MEDS: Mirtazapine 30 MG TABLET PO (20:01)
[2023-12-24] MEDS: methADONE HCl 20 MG/2 ML ORAL.CONC 95 MG PO (20:02)
[2023-12-25] MEDS: Omeprazole 20 MG CAPSULE.DR PO (05:05)
[2023-12-25] MEDS: clonazePAM 0.5 MG TABLET PO ×2 (08:04→20:44)
[2023-12-25] MEDS: Lipase/Prot/Amylase 24/76/120K 1 CAP CAPSULE.DR PO ×3 (08:04→16:56)
[2023-12-25] MEDS: Nicotine 7 MG PATCH.TD24 TRANSDERMA (08:04)
[2023-12-25] MEDS: Tiotropium Bromide 2.5 mcg 1 PUFF/2.5 MCG MIST.INHAL 2 PUFF INHALE (08:05)
[2023-12-25] MEDS: methADONE HCl 20 MG/2 ML ORAL.CONC 150 MG PO (08:05)
[2023-12-25 08:22] VITALS: BP 138/81; PULSE 63; RESP 18; TEMP 37; O2SAT 100
[2023-12-25] MEDS: hydrOXYzine HCL 25 MG TABLET PO ×2 (12:26→20:44)
[2023-12-25 18:00] VITALS: BP 126/76; PULSE 62; RESP 18; TEMP 37.3; O2SAT 96
--- NOTE | 2023-12-25 20:21 | P.PNPSI_ITS ---
Subjective Subjective Date of Service: 12/24/23 Reason For Visit: SI Subjective Notes: Conditional Voluntary Interim History: Pt reports sleeping better. He denies SI/HI. He reports mood is better. He has been visible on the unit. No behavioral concerns. Review of Systems Review of Systems Yes all other systems are reviewed and are negative Constitutional: Reports no additional constitutional complaints, Denies body ache(s), Denies chills, Denies fever(s), Denies headache(s) and Denies weakness Eyes: Reports no additional eye complaints and Denies change in vision Reports system reviewed and no additional complaints, except as documented, Denies dizziness, Denies headache(s), Denies nasal congestion, Denies nasal discharge and Denies neck pain Cardiovascular: Reports no additional cardiovascular complaints, Denies chest pain, Denies leg edema and Denies dyspnea Respiratory: Reports no additional respiratory complaints, Denies cough and Denies dyspnea Gastrointestinal: Reports no additional gastrointestinal complaints, Denies abdominal pain, Denies diarrhea, Denies nausea and Denies vomiting Genitourinary: Denies urinary incontinence Musculoskeletal: Reports no additional musculoskeletal complaints, Denies back pain, Denies arthralgias, Denies joint swelling, Denies neck pain, Denies numbness and Denies tingling Skin/Breast: Reports system reviewed and no additional complaints, except as docu and Denies rash Reports system reviewed and no additional complaints, except as documented, Denies Abnormal speech present, Denies dizziness, Denies headache(s), Denies numbness, Denies tingling and Denies weakness Psychiatric: Denies anxiety, Reports depression, Denies homicidal ideation and Reports suicidal ideation Mental Status Exam Mental Status Exam Narrative: Appearance:thin, malnourished, fair hygiene, in NAD Behavior:cooperative Psychomotor: no agitation or retardation noted Speech:clear, normal rate/rhythm/volume, spontaneous TP:linear TC:no signs of psychosis, feeling tired, but open to help Mood: better Affect:constricted SI:denies HI:none VH/AH:none Delusions:none Insight/judgment: poor x 2. Memory/cog: alert, oriented x 3.pending MOCA and ACL. Diagnostics Vital Signs (24Hr): Vital Signs - 24 hr 12/25/23 08:22 Temperature 98.6 F Pulse Rate 63 Respiratory Rate 18 Blood Pressure 138/81 Pulse Oximetry 100 Oxygen Delivery Method Room Air BMI result Body Mass Index 16.5 Labs 12/18/23 12:05 12/18/23 12:05 Imaging Radiology Impressions: ITS Impressions Abdomen Ultrasound 12/20/23 13:05 IMPRESSION: 1. No evidence of nephrolithiasis or hydronephrosis. 2. Complex left midpole renal cyst. Recommend further characterization with abdominal MRI renal protocol. 3. 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 Medications Medications Current Medications Acetaminophen (Acetaminophen 325 Mg Tablet) 650 mg PO Q6H PRN PRN Reason: Headache/Pain Mild Scale (1-3) Last Admin: 12/22/23 13:59 Dose: 650 mg Al Hydroxide/Mg Hydroxide (Magnesium Hydrox/Alum Hydrox 30 Ml Oral.Susp) 30 ml PO Q6H PRN PRN Reason: Heartburn/Nausea Lipase/Protease/Amylase (Lipase/Prot/Amylase 24/76/120k 1 Cap Capsule.) 1 cap PO TIDWM [facility] Last Admin: 12/25/23 16:56 Dose: 1 cap Clonazepam (Clonazepam 0.5 Mg Tablet) 0.5 mg PO BID [facility] Last Admin: 12/25/23 08:04 Dose: 0.5 mg Hydroxyzine HCl (Hydroxyzine Hcl 25 Mg Tablet) 25 mg PO Q6H PRN PRN Reason: Anxiety Last Admin: 12/25/23 12:26 Dose: 25 mg Magnesium Hydroxide (Milk Of Magnesia 30 Ml Oral.Susp) 30 ml PO DAILY PRN PRN Reason: Constipation Methadone HCl (Methadone Hcl 20 Mg/2 Ml Oral.Conc) 95 mg PO BEDTIME [facility] Last Admin: 12/24/23 20:02 Dose: 95 mg Methadone HCl (Methadone Hcl 20 Mg/2 Ml Oral.Conc) 150 mg PO DAILY [facility] Last Admin: 12/25/23 08:05 Dose: 150 mg Mirtazapine (Mirtazapine 30 Mg Tablet) 30 mg PO BEDTIME [facility] Last Admin: 12/24/23 20:01 Dose: 30 mg Naloxone HCl (Naloxone Hcl Nasal 4 Mg [place]) 4 mg NOSTRILALT DAILY PRN PRN Reason: opioid overdose Nicotine (Nicotine 7 Mg Patch.Td24) 7 mg TRANSDERMA DAILY [facility] Last Admin: 12/25/23 08:04 Dose: 7 mg Omeprazole (Omeprazole 20 Mg Capsule.) 20 mg PO DAILY@0630 [facility] Last Admin: 12/25/23 05:05 Dose: 20 mg Tiotropium [place] (Tiotropium [place] 2.5 Mcg 1 Puff/2.5 Mcg Mist.Inhal) 2 puff INHALE RDAILY [facility] Last Admin: 12/25/23 08:05 Dose: 2 puff Trazodone HCl (Trazodone Hcl 50 Mg Tablet) 50 mg PO BEDTIME MRX1 PRN PRN Reason: Insomnia Last Admin: 12/21/23 20:29 Dose: 50 mg Allergies Allergies Allergy/AdvReac Type Severity Reaction Status Date / Time Penicillins [PENICILLINS] Allergy Unknown UNKNOWN, Verified 12/16/23 20:14 rash Assessment & Plan Assessment & Plan (1) MDD (major depressive disorder), recurrent episode, moderate: Status: Acute Code(s): F33.1 - Major depressive disorder, recurrent, moderate (2) Benzodiazepine dependence, continuous: Status: Acute Code(s): F13.20 - Sedative, hypnotic or anxiolytic dependence, uncomplicated (3) Opioid use disorder, severe, dependence: Status: Acute Code(s): F11.20 - Opioid dependence, uncomplicated Plan continue tx. Reason for continued inpatient stay Substantial Risk for: harm to self Time Spent With Patient Time: Total time managing care of this patient today ____ minutes.
[2023-12-25] MEDS: traZODone HCL 50 MG TABLET PO (20:44)
[2023-12-25] MEDS: methADONE HCl 20 MG/2 ML ORAL.CONC 95 MG PO (20:44)
[2023-12-25] MEDS: Mirtazapine 30 MG TABLET PO (20:44)
[2023-12-26] MEDS: Omeprazole 20 MG CAPSULE.DR PO (06:31)
[2023-12-26 08:18] VITALS: BP 122/69; PULSE 68; RESP 16; TEMP 37.2; O2SAT 99
[2023-12-26] MEDS: clonazePAM 0.5 MG TABLET PO ×2 (08:20→20:58)
[2023-12-26] MEDS: Lipase/Prot/Amylase 24/76/120K 1 CAP CAPSULE.DR PO ×3 (08:20→17:59)
[2023-12-26] MEDS: methADONE HCl 20 MG/2 ML ORAL.CONC 150 MG PO (08:22)
[2023-12-26] MEDS: Tiotropium Bromide 2.5 mcg 1 PUFF/2.5 MCG MIST.INHAL 2 PUFF INHALE (08:25)
[2023-12-26] MEDS: hydrOXYzine HCL 25 MG TABLET PO ×2 (12:06→20:57)
--- NOTE | 2023-12-26 17:22 | HO.PSYCHPN ---
Subjective Subjective Date of Service: 12/26/23 Reason For Visit: SI Interim History: Pt reports sleeping better. He denies SI/HI. He reports mood is better. He has been visible on the unit. No behavioral concerns. Review of Systems Review of Systems Yes all other systems are reviewed and are negative Constitutional: Reports no additional constitutional complaints, Denies body ache(s), Denies chills, Denies fever(s), Denies headache(s) and Denies weakness Eyes: Reports no additional eye complaints and Denies change in vision Reports system reviewed and no additional complaints, except as documented, Denies dizziness, Denies headache(s), Denies nasal congestion, Denies nasal discharge and Denies neck pain Cardiovascular: Reports no additional cardiovascular complaints, Denies chest pain, Denies leg edema and Denies dyspnea Respiratory: Reports no additional respiratory complaints, Denies cough and Denies dyspnea Gastrointestinal: Reports no additional gastrointestinal complaints, Denies abdominal pain, Denies diarrhea, Denies nausea and Denies vomiting Genitourinary: Denies urinary incontinence Musculoskeletal: Reports no additional musculoskeletal complaints, Denies back pain, Denies arthralgias, Denies joint swelling, Denies neck pain, Denies numbness and Denies tingling Skin/Breast: Reports system reviewed and no additional complaints, except as docu and Denies rash Reports system reviewed and no additional complaints, except as documented, Denies Abnormal speech present, Denies dizziness, Denies headache(s), Denies numbness, Denies tingling and Denies weakness Psychiatric: Denies anxiety, Reports depression, Denies homicidal ideation and Reports suicidal ideation Mental Status Exam Mental Status Exam Narrative: Appearance:thin, malnourished, fair hygiene, in NAD Behavior:cooperative Psychomotor: no agitation or retardation noted Speech:clear, normal rate/rhythm/volume, spontaneous TP:linear TC:no signs of psychosis, feeling tired, but open to help Mood: better Affect:constricted SI:denies HI:none VH/AH:none Delusions:none Insight/judgment: poor x 2. Memory/cog: alert, oriented x 3.pending MOCA and ACL. Diagnostics Vital Signs (24Hr): Vital Signs - 24 hr 12/25/23 18:00 12/26/23 08:18 Temperature 99.2 F 98.9 F Pulse Rate 62 68 Respiratory Rate 18 16 Blood Pressure 126/76 122/69 Pulse Oximetry 96 99 Oxygen Delivery Method Room Air Room Air BMI result Body Mass Index 16.5 Labs 12/18/23 12:05 12/18/23 12:05 Imaging Radiology Impressions: ITS Impressions Abdomen Ultrasound 12/20/23 13:05 IMPRESSION: 1. No evidence of nephrolithiasis or hydronephrosis. 2. Complex left midpole renal cyst. Recommend further characterization with abdominal MRI renal protocol. 3. 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 Medications Medications Current Medications Acetaminophen (Acetaminophen 325 Mg Tablet) 650 mg PO Q6H PRN PRN Reason: Headache/Pain Mild Scale (1-3) Last Admin: 12/22/23 13:59 Dose: 650 mg Al Hydroxide/Mg Hydroxide (Magnesium Hydrox/Alum Hydrox 30 Ml Oral.Susp) 30 ml PO Q6H PRN PRN Reason: Heartburn/Nausea Lipase/Protease/Amylase (Lipase/Prot/Amylase 24/76/120k 1 Cap Capsule.) 1 cap PO TIDWM [facility] Last Admin: 12/26/23 12:02 Dose: 1 cap Clonazepam (Clonazepam 0.5 Mg Tablet) 0.5 mg PO BID [facility] Last Admin: 12/26/23 08:20 Dose: 0.5 mg Hydroxyzine HCl (Hydroxyzine Hcl 25 Mg Tablet) 25 mg PO Q6H PRN PRN Reason: Anxiety Last Admin: 12/26/23 12:06 Dose: 25 mg Magnesium Hydroxide (Milk Of Magnesia 30 Ml Oral.Susp) 30 ml PO DAILY PRN PRN Reason: Constipation Methadone HCl (Methadone Hcl 20 Mg/2 Ml Oral.Conc) 95 mg PO BEDTIME [facility] Last Admin: 12/25/23 20:44 Dose: 95 mg Methadone HCl (Methadone Hcl 20 Mg/2 Ml Oral.Conc) 150 mg PO DAILY [facility] Last Admin: 12/26/23 08:22 Dose: 150 mg Mirtazapine (Mirtazapine 30 Mg Tablet) 30 mg PO BEDTIME [facility] Last Admin: 12/25/23 20:44 Dose: 30 mg Naloxone HCl (Naloxone Hcl Nasal 4 Mg [place]) 4 mg NOSTRILALT DAILY PRN PRN Reason: opioid overdose Nicotine (Nicotine 7 Mg Patch.Td24) 7 mg TRANSDERMA DAILY [facility] Last Admin: 12/26/23 08:26 Dose: Not Given Omeprazole (Omeprazole 20 Mg Capsule.) 20 mg PO DAILY@0630 [facility] Last Admin: 12/26/23 06:31 Dose: 20 mg Tiotropium [place] (Tiotropium [place] 2.5 Mcg 1 Puff/2.5 Mcg Mist.Inhal) 2 puff INHALE RDAILY [facility] Last Admin: 12/26/23 08:25 Dose: 2 puff Trazodone HCl (Trazodone Hcl 50 Mg Tablet) 50 mg PO BEDTIME MRX1 PRN PRN Reason: Insomnia Last Admin: 12/25/23 20:44 Dose: 50 mg Allergies Allergies Allergy/AdvReac Type Severity Reaction Status Date / Time Penicillins [PENICILLINS] Allergy Unknown UNKNOWN, Verified 12/16/23 20:14 rash Assessment & Plan Assessment & Plan (1) MDD (major depressive disorder), recurrent episode, moderate: Status: Acute Code(s): F33.1 - Major depressive disorder, recurrent, moderate (2) Benzodiazepine dependence, continuous: Status: Acute Code(s): F13.20 - Sedative, hypnotic or anxiolytic dependence, uncomplicated (3) Opioid use disorder, severe, dependence: Status: Acute Code(s): F11.20 - Opioid dependence, uncomplicated Plan continue tx. Reason for continued inpatient stay Substantial Risk for: stable for discharge Time Spent With Patient Time: Total time managing care of this patient today ____ minutes.
[2023-12-26 18:00] VITALS: BP 132/57; PULSE 60; RESP 18; TEMP 36.4; O2SAT 100
[2023-12-26] MEDS: traZODone HCL 50 MG TABLET PO (20:58)
[2023-12-26] MEDS: Mirtazapine 30 MG TABLET PO (20:58)
[2023-12-26] MEDS: methADONE HCl 20 MG/2 ML ORAL.CONC 95 MG PO (20:59)
[2023-12-27 01:59] VITALS: BP 132/52; PULSE 60; RESP 18; TEMP 36.4; O2SAT 100
[2023-12-27] MEDS: Omeprazole 20 MG CAPSULE.DR PO (06:13)
[2023-12-27 08:00] VITALS: BP 153/74; PULSE 72; RESP 18; TEMP 37; O2SAT 99
[2023-12-27] MEDS: clonazePAM 0.5 MG TABLET PO ×2 (08:32→20:32)
[2023-12-27] MEDS: Lipase/Prot/Amylase 24/76/120K 1 CAP CAPSULE.DR PO ×3 (08:32→16:43)
[2023-12-27] MEDS: methADONE HCl 20 MG/2 ML ORAL.CONC 150 MG PO (08:33)
[2023-12-27] MEDS: Tiotropium Bromide 2.5 mcg 1 PUFF/2.5 MCG MIST.INHAL 2 PUFF INHALE (08:34)
[2023-12-27] MEDS: hydrOXYzine HCL 25 MG TABLET PO (14:29)
--- NOTE | 2023-12-27 14:29 | MHC.CLN ---
F/U DIET=REGULAR. INTAKE USUALLY 50-100%, WITH MANY MEALS 100%. MAGIC CUP BID PROVIDES ADDITIONAL 580 KCALS, 18 G PROTEIN. CONTINUE TO PROVIDE FOOD CHOICES ABLE. FOLLOW FOR PO INTAKE AND WEIGHT. RD TO FOLLOWUP WEEKLY.
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
[2023-12-27 18:00] VITALS: BP 120/78; PULSE 60; RESP 18; TEMP 37.1; O2SAT 98
[2023-12-27] MEDS: methADONE HCl 20 MG/2 ML ORAL.CONC 95 MG PO (20:31)
[2023-12-27] MEDS: Mirtazapine 30 MG TABLET PO (20:32)
[2023-12-27] MEDS: traZODone HCL 50 MG TABLET PO (20:32)
[2023-12-28] MEDS: Omeprazole 20 MG CAPSULE.DR PO (06:43)
[2023-12-28 08:00] VITALS: BP 139/76; PULSE 63; RESP 16; TEMP 36.1; O2SAT 96
[2023-12-28] MEDS: Lipase/Prot/Amylase 24/76/120K 1 CAP CAPSULE.DR PO ×2 (09:00→12:30)
[2023-12-28] MEDS: clonazePAM 0.5 MG TABLET PO (09:00)
[2023-12-28] MEDS: methADONE HCl 20 MG/2 ML ORAL.CONC 150 MG PO (09:01)
[2023-12-28] MEDS: Tiotropium Bromide 2.5 mcg 1 PUFF/2.5 MCG MIST.INHAL 2 PUFF INHALE (09:02)
--- NOTE | 2023-12-28 13:59 | PM.PSYDC ---
DS: Providers Provider Date of Service: 12/28/23 Date of admission: 12/18/23 12:28 Date of discharge: 12/28/23 Primary care physician: Unknown Physician Consults: 12/20/23 19:42 Consult to Nephrology Routine Consulting Provider: [facility] Reason for consultation: Complex left midpole renal cyst Has provider been notified: Yes Discharging clinician: Maria Del Rosario Ruiz DS: Diagnosis Discharge Diagnosis (1) MDD (major depressive disorder), recurrent episode, moderate: Status: Acute (2) Benzodiazepine dependence, continuous: Status: Acute (3) Opioid use disorder, severe, dependence: Status: Acute DS: Medications Discharge Medications Home Medications: Home Medications Medication Instructions Recorded Confirmed methadone 10 mg/mL oral concentrate 150 mg PO QAM 06/11/21 12/17/23 gabapentin 300 mg capsule 300 mg PO TID 12/17/23 12/17/23 methadone 10 mg/mL oral concentrate 95 mg PO QPM 12/17/23 12/17/23 mirtazapine 15 mg tablet 15 mg PO BEDTIME 12/17/23 12/17/23 omeprazole 20 mg capsule,delayed 20 mg PO DAILY 12/17/23 12/17/23 release Mental Status Exam Mental Status Exam Narrative: Appearance:thin, malnourished, fair hygiene, in NAD Behavior:cooperative Psychomotor: no agitation or retardation noted Speech:clear, normal rate/rhythm/volume, spontaneous TP:linear TC:no signs of psychosis, feeling tired, but open to help Mood: better Affect:constricted SI:denies HI:none VH/AH:none Delusions:none Insight/judgment: poor x 2. Memory/cog: alert, oriented x 3. Data Data Completed and Pending Completed studies during hospitalization [Text1]: 12/22/23 07:44 Triglycerides 89 Cholesterol 146 LDL Cholesterol, Calc 90 HDL Cholesterol 39 L TSH 5.50 H Free T4 0.86 Imaging Diagnostic Imaging Impressions Abdomen Ultrasound 12/20/23 13:05 IMPRESSION: 1. No evidence of nephrolithiasis or hydronephrosis. 2. Complex left midpole renal cyst. Recommend further characterization with abdominal MRI renal protocol. 3. 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 DS: Summary Hospital Course Hospital Course: Mr. Spears is a 68 year-old male with hx of depression, opioid use disorder on methadone, benzodiazepine dependence who self presented to [facility] ED reporting increase depression, suicidal ideation in context of multiple stressors including ongoing substance use, feeling lonely, grieving loss of mother and sister (although this happened more than 5 years ago). In the ED, his utox is positive for fentanyl, opioids, benzodiazepine, cocaine and cannabinoids. Medical work up included cbc which initially showed leukocitosis but no clear source of infection, afebrile. Repeat CBC shows normalization of WBC. His CMP showed no electrolyte abnormality but did show BUN 24, Cr. 1.55, which improved on 12/18 to BUN 18, Cr. 0.96 with creatinine clearance of 60.9. His A1c 5.1% LFT within normal limits. B12 791, Folate 9.3. Head CT no acute pathology, but does show atrophy and microvascular changes. On the unit, pt presents as cooperative. He appears very malnourished and thin. He reports that prior to coming here to the hospital he was tired of living the life I've been living. He reports I wasn't living. He adds I had to face reality, when discussing ongoing substance use. He also reports feeling lonely. He reports he has struggled with substance use since he was in . He reports he has not had significant periods of sobriety. He denies history of suicide attempts but reports for the past 30 years he has been using substances and most of the time not caring about the outcome of excessive substance use. He is on a high dose of methadone (total 240mg in split doses). He also reports using about 10mg of clonazepam a day for several months. He reports using fentanyl as well. He reports he usually does not use cocaine and thinks either fentanyl or cannabis was laced with cocaine. He denies hx of VH/AH. No s/s of delusions. He does report difficulty retaining information and memory issues. When reviewing his medical hx and medication information, he appears to not have much recollection nor is sure what medications he is supposed to be on. Past Psychiatric History: Inpt: [facility]TU 2021 OP: none Past medication trials: remeron (which he reports was helpful) Medical Evaluation Reviewed: Yes HOSPITAL COURSE On the unit, pt was admitted on a CV and placed on 15 minutes checks for safety. Pt initially reported feeling tired of living a life with ongoing substance use. We discussed risks, benefits and alternative treatment options. He reports remeron was helpful for his mood and appetite. He also was started and completed with no medical complications taper of benzodiazepines as pt reported using about 10mg po of clonazepam daily in addition to methadone which is a high dose 240mg/day. His affect gradually presented as brighter and he denied suicidal or homicidal ideation throughout this admission. In terms of his recovery, pt reports he has been on multiple residential, dual dx programs and did not feel he wanted that level of care. He was also offerred to connect with monomer recovery operator which he declined. We also discussed reconnecting with addiction medicine provider through his PCP office, but again he declined. He did agree to continue methadone. He reported left side abdominal pain. He had US which showed complex renal cysts. Nephrology saw pt while on the unit and recommended outpatient follow up. This travel writer also communicated with his PCP office at [address] [place] [address] as pt does not attend their appointments often either. I discussed with Mr. Spears to continue care with PCP, who can continue prescribing remeron (as most likely pt would not attend appointment with psych provider). We had long discussion about harm reduction- including having narcan with him, trying as much as possible to keep contact with PCP office even if he relapses. He did agree to resume [employer] hours. Collateral information was gathered from his brother, who reports pt has had long hx of substance use since age 18 with no significant periods of sobriety. Pt at this time is also risking housing as he is behind on rent. Status at Discharge Cognitive/behavioral status at discharge: Pt with brighter, non labile affect. No SI/HI. No VH/AH. Sleeping and eating well. No aggression towards self or others. Functional status at discharge: independent ambulation Overall status at discharge: patient is progressing back to baseline Time Spent with Patient Time attestation: Total time managing care of this patient today ____ minutes. Discharge Plan Discharge Anticipated Discharge Date/Time: 12/28/23 14:04 Patient Disposition: Home, Self-Care Discharge Diagnosis: MDD, recurrent, moderate OPioid Use Disorder Cocaine Use Disorder Referrals: [facility]Other] - 1 Week [facility] [Other] - [address] Dr[address] Juan Solis - PCP [Other] - 01/12/24 9:00 am (Senior Clinician called PCP office to schedule patient's appointment, PCP office stated that there weren't available opening sooner for a hospital discharge. PCP office will call patient at his phone number ([phone]) with his appointment date and time with 24 hours. Note: Appointment has been scheduled. 01/12/2024 @ 9am ) Joanne Multani - Field Care Coordinator [Other] - 1 Week (Senior Clinician called left a message for patient's manager of case, informing her about patient discharging home today; and for his services to resume. ) Discharge Medications: New tiotropium bromide 2.5 mcg/actuation mist 2 puff inhalation DAILY Qty: 4 0RF trazodone 50 mg Tablet 50 mg PO BEDTIME PRN (Reason: Insomnia) Qty: 30 0RF mirtazapine 30 mg Tablet 30 mg PO BEDTIME Qty: 30 0RF omeprazole 20 mg Capsule,Delayed Release(Dr/Ec) 20 mg PO DAILY@0630 Qty: 30 0RF [place] 24,000-76,000 -120,000 unit Capsule,Delayed Release(Dr/Ec) 1 cap PO TIDWM Qty: 90 0RF Continued methadone 10 mg/mL Concentrate 150 mg PO QAM Rx Instructions: Patient is on a split dose 150mg in am and 95mg in pm. Verified by Robinson NEIL methadone 10 mg/mL Concentrate 95 mg PO QPM Rx Instructions: Patient is on a split dose 150mg in am and 95mg in pm Verified by Robinson Tim gabapentin 300 mg capsule 300 mg PO TID omeprazole 20 mg capsule,delayed release(DR/EC) 20 mg PO DAILY mirtazapine 15 mg tablet 15 mg PO BEDTIME Discharge Orders: Discharge Order (Routine); Ordered 12/28/23 Ordered By: Maria Del Rosario Ruiz Diet: Regular diet Activity on Discharge: As tolerated Stand Alone Forms: Patient Portal Discharge page, Community Support Care Plan Goals: 1. Maintain mood 2. No SI/HI 3. Harm reduction- narcan given on discharge Health Concerns: follow up with PCP- may need to resume eliquis given hx of cerebral blood Plan of Treatment: 1. continue tx Assessment: pt with brighter, non labile. No SI/HI. No VH/AH. Discharge Date/Time: 12/28/23 15:05
[2023-12-28] MEDS: Naloxone HCl Nasal TAKE HOME 4 MG SPRAY 8 MG NOSTRILALT (14:19)
== END 2023-12-28 15:05 | disposition home or self-care (01) | DRG 885 ==
LOC: HO.ED 12-17 07:03 → HO.PGERI 12-18 12:29
PROVIDERS: Nurse Practitioner Family; Admitting Provider Social Worker; Emergency Provider Emergency Medicine Emergency Medical Services; Visit Provider Social Worker
DX: F33.1 Major depressive disorder, recurrent, moderate (principal); R45.851 Suicidal ideations; F11.20 Opioid dependence, uncomplicated; F13.20 Sedative, hypnotic or anxiolytic dependence, uncomplicated; E46 Unspecified protein-calorie malnutrition; Z68.1 Body mass index [BMI] 19.9 or less, adult; F17.210 Nicotine dependence, cigarettes, uncomplicated; N28.1 Cyst of kidney, acquired; Z71.6 Tobacco abuse counseling; Z20.822 Contact with and (suspected) exposure to COVID-19; Z95.0 Presence of cardiac pacemaker; Z79.899 Other long term (current) drug therapy
CPT/HCPCS: 36415; 76705; 80053; 80061; 80307; 81003; 82607; 82746; 83036; 83690; 84439; 84443; 85025; 85027; 87635; 93005; 99285; S9485

== ENCOUNTER → 2023-12-17 17:05 | Outpatient (BNV) | payer MEDICARE, MEDICAID, SELFPAY | PROVIDERS: Admitting Provider Social Worker; Emergency Provider Emergency Medicine Emergency Medical Services; Visit Provider Internal Medicine Cardiovascular Disease | DX: R94.31 Abnormal electrocardiogram [ECG] [EKG] (principal) | CPT/HCPCS: 93010 ==

== ENCOUNTER → 2023-12-18 12:28 | Outpatient (BNV) | payer MEDICARE, MEDICAID, SELFPAY | PROVIDERS: Admitting Provider Social Worker; Emergency Provider Emergency Medicine Emergency Medical Services; Visit Provider Social Worker | DX: F33.1 Major depressive disorder, recurrent, moderate (principal); F13.20 Sedative, hypnotic or anxiolytic dependence, uncomplicated; F11.20 Opioid dependence, uncomplicated | CPT/HCPCS: 90792; 99231; 99232; 99238 ==

== ENCOUNTER → 2023-12-18 12:28 | Outpatient (BNV) | payer MEDICARE, MEDICAID, SELFPAY | PROVIDERS: Admitting Provider Social Worker; Emergency Provider Emergency Medicine Emergency Medical Services; Visit Provider Internal Medicine Nephrology | DX: N28.1 Cyst of kidney, acquired (principal) | CPT/HCPCS: 99222 ==

== ENCOUNTER 2024-04-20 18:48 | Inpatient (IN) | payer OTHER, SELFPAY ==
[2024-04-20 19:06] VITALS: BP 123/75; BP 136/78; PULSE 60; RESP 16; TEMP 36.9; O2SAT 95; O2SAT 97; BMI 16.0
[2024-04-20 19:08] VITALS: RESP 16
[2024-04-20 20:10] LABS: Hematocrit 32.6 % (42.0-52.0); Hemoglobin 10.4 g/dl (14.0-18.0); Mean Corpuscular HGB Conc 31.9 g/dl (31.0-36.0); Mean Corpuscular Volume 87.9 fL (80.0-98.0); Mean Platelet Volume 9.9 fL (9.4-12.4); Platelet Count 571 X10*3/uL (160-400); Red Blood Count 3.71 X10*6/uL (4.60-5.80); Red Cell Distribution Width 15.9 % (11.0-16.0); White Blood Count 8.8 X10*3/uL (4.8-10.8)
--- NOTE | 2024-04-20 20:26 | ED_ITS ---
HPI - General Adult General Chief complaint: Psychiatric Symptoms Stated complaint: depression, self increased dose of Klonipin Time Seen by Provider: 04/20/24 18:58 Source: patient, RN notes reviewed and old records reviewed Mode of arrival: EMS Limitations: no limitations History of Present Illness ED Provider: Cassie HPI narrative: 68-year-old male presents for evaluation of depression with suicidal ideation. Patient reports that yesterday he took between 10 and 15 Klonopin. He states the Klonopin is prescribed to him but he took more than he is supposed to ?to go to sleep and not wake up. ? Patient reports that he has chronic abdominal pain due to chronic pancreatitis and he is status post a Whipple procedure He states that he uses Klonopin occasionally fentanyl to ?dull the pain. ? Patient is now having suicidal thoughts He denies any fevers, chills, cough, shortness of breath, nausea vomiting He does endorse a history of COPD but is not oxygen dependent. Related Data Home Medications ?Medication ?Instructions ?Recorded ?Confirmed methadone 10 mg/mL oral concentrate 160 mg PO QAM 06/11/21 04/20/24 methadone 10 mg/mL oral concentrate 105 mg PO QPM 12/17/23 04/20/24 Previous Rx's ?Medication ?Instructions ?Recorded [id number] 1 cap PO TIDWM #90 caps 12/28/23 24,000-76,000-120,000 unit capsule,delayed rel (Creon) mirtazapine 30 mg tablet 30 mg PO BEDTIME #30 tabs 12/28/23 omeprazole 20 mg capsule,delayed 20 mg PO DAILY@0630 #30 caps 12/28/23 release trazodone 50 mg tablet 50 mg PO BEDTIME PRN Insomnia #30 12/28/23 tabs Allergies Allergy/AdvReac Type Severity Reaction Status Date / Time Penicillins [PENICILLINS] Allergy Unknown UNKNOWN, Verified 04/20/24 19:08 rash Review of Systems 2 Constitutional: Constitutional: Denies body ache(s), Denies chills and Denies headache(s) Eyes: Eyes: Denies blurry vision ENT: Denies headache(s) Cardiovascular: Cardiovascular: Denies chest pain and Denies dyspnea Respiratory: Respiratory: Denies cough and Denies dyspnea Gastrointestinal: Gastrointestinal: Denies abdominal pain, Denies nausea and Denies vomiting Integumentary/Breasts: Skin/Breast: Denies rash Neurologic: Denies headache(s) Psychiatric: Psychiatric: Reports depression and Reports suicidal ideation [facility] Past Medical History Medical History (Updated 04/20/24 @ 20:32 by Shad Matthews) Substance abuse Cervical spine fracture Social History Social History Household Members: None Housing: Apartment Do you presently have visiting nurse or other home services: No Alcohol intake: current Alcohol intake frequency: holidays/special occasions only Alcohol type: beer and hard liquor Patient Tobacco Use Status: Current everyday Tobacco user Tobacco use type: Cigarette Cigarettes Per Day: 5 Smoked in Last 30 Days: Yes Second Hand Smoke Exposure: Yes Use of substances other than those prescribed or required for medical reasons: Yes Substance Use Type: IV Drugs and Opiates Substance Use Frequency: Occasionally Advance Directives: No service: No Sexual orientation: Straight/Heterosexual Physical Exam ED Vital Signs: Vital Signs - 24 hr 04/21/24 12:36 04/21/24 19:45 04/22/24 06:14 Temperature 97.6 F 99.4 F 98.3 F Pulse Rate 61 67 60 Respiratory Rate 14 16 Blood Pressure 129/82 123/82 132/81 Pulse Oximetry 96 99 97 Oxygen Delivery Method Room Air Room Air Room Air BMI result Body Mass Index 16.0 Const General: healthy appearing, comfortable, no acute distress, alert and awake Nutritional Appearance: well nourished Orientation/consciousness: patient oriented x3 HENMT Head: Yes normocephalic and Yes atraumatic Eyes Eyelids: Yes eyelids normal Conjunctivae: conjunctivae normal Sclerae: sclerae normal Corneas: corneas normal Pupils: Equal, round and reactive pupils present EOM: EOMs intact bilaterally Neck Neck: Yes full ROM Resp Effort & Inspection: normal respiratory effort, able to speak in complete sentences, no audible wheezes and not labored Auscultation: clear to auscultation bilaterally GI Inspection: No distended Palpation (GI): Soft to palpation, not firm, nontender, no guarding and not rigid Skin General skin exam: elasticity normal Neuro General: patient oriented x3 Cranial nerves: Yes Equal, round and reactive pupils present and Yes Bilaterally intact EOM present Cognition (Neuro): normal cognition Extrem Other: Moving all extremities well without any obvious deformities Course Reevaluation(s) Reevaluation #1: Patient is medically cleared for care team evaluation Time: 01:19 Reevaluation #2: Patient is seen by the care team and will be a bed search for inpatient psychiatric care Time: 20:06 Reevaluation #3: 04/22/24 no acute events overnight. inpatient bed search, VS stable. will continue to monitor in obseravation Consultations Additional Consultation(s): 04/21/2024 at 12:37 hours, Dr. Luis Sanchez's note Physician observation continued: 68-year-old male who presents emergency department for evaluation of depression with suicidal ideation. Patient reported to the nurse that he was taking 10-15 Klonopin a day to help with his chronic pain. Initially the patient was given Tylenol for his pain. Patient may not be exhibiting signs of benzodiazepine withdrawal with symptoms including anxiety and physical discomfort. Therefore the patient will be treated with Ativan 1 mg q.4 hours as needed for anxiety/withdrawal. Patient is waiting for care team evaluation. Patient will remain in the emergency department Behavioral Health Unit until disposition can be determined or until patient's symptoms improve over time. Medications Administered Generic Name Dose Route Start Last Admin Trade Name Freq PRN Reason Stop Dose Admin Lipase/Protease/Amylase 1 cap 04/21/24 08:00 04/22/24 07:21 Lipase/Prot/Amylase 24/76/120k [address]Dr FULTON 1 cap TIDWM SKIP Administration Lorazepam 1 mg 04/21/24 12:41 04/22/24 08:17 Lorazepam 1 Mg Tablet PO 1 mg Q4H PRN Administration Anxiety, benzodiazepine withdr Methadone HCl 105 mg 04/20/24 21:00 04/21/24 20:40 Methadone Hcl 20 Mg/2 Ml Oral.Conc PO 105 mg BEDTIME SKIP Administration Methadone HCl 160 mg 04/21/24 09:00 04/22/24 08:12 Methadone Hcl 20 Mg/2 Ml Oral.Conc PO 160 mg DAILY SKIP Administration Mirtazapine 30 mg 04/20/24 21:00 04/21/24 20:40 Mirtazapine 30 Mg Tablet PO 30 mg BEDTIME SKIP Administration Omeprazole 20 mg 04/21/24 06:30 04/22/24 06:08 Omeprazole 20 Mg Capsule.Dr FULTON 20 mg DAILY@0630 SKIP Administration Discontinued Medications Generic Name Dose Route Start Last Admin Trade Name [place] PRN Reason Stop Dose Admin Acetaminophen 650 mg 04/21/24 09:38 04/21/24 09:56 Acetaminophen 325 Mg Tablet PO 04/21/24 09:39 650 mg ONCE ONE Administration Medical Decision Making Medical Decision Making [facility] Narrative: 68-year-old male presents for evaluation of suicidal ideation. He has no current somatic complaints. Plan for medical clearance and care team evaluation. He endorses overdosing on Klonopin yesterday. This was over 24 hours ago, and does not require any further intervention. The patient is awake, alert and oriented and does not have any signs of [employer] depression Differential Diagnosis Differential Diagnoses: The differential diagnosis associated with the presentation includes Depression Suicidal ideation Overdose Substance abuse Benzodiazepine overdose Lab Data 04/20/24 20:03 04/20/24 20:03 Labs: Lab Results 04/20/24 04/21/24 Range/Units 20:03 01:06 WBC 8.8 (4.8-10.8) X10*3/uL RBC 3.71 L (4.60-5.80) X10*6/uL Hgb 10.4 L (14.0-18.0) g/dl Hct 32.6 L (42.0-52.0) % MCV 87.9 (80.0-98.0) fL MCH 28.0 (27.0-33.0) pg MCHC 31.9 (31.0-36.0) g/dl RDW 15.9 (11.0-16.0) % Plt Count 571 H D (160-400) X10*3/uL MPV 9.9 (9.4-12.4) fL Absolute Nucleated RBC 0.000 (0.0-0.012) X10*3/uL Nucleated RBC % (auto) 0.0 (0.0-0.2) /100WBC Sodium 143 (135-145) mmol/L Potassium 4.7 (3.3-5.1) mmol/L Chloride 108 (96-108) mmol/L Carbon Dioxide 24 (22-29) mmol/L Anion Gap 16 (12-20) BUN 19 H (9-16) mg/dL Creatinine 1.45 H (0.5-1.4) mg/dL Estim Creat Clear Calc 36.9 Estimated GFR 49 Random Glucose 131 H (60-115) mg/dL Calcium 8.3 L (8.4-10.2) mg/dL Total Bilirubin 0.1 (0.0-1.0) mg/dL AST 29 (5-37) U/L ALT 18 (0-40) U/L Alkaline Phosphatase 72 (39-117) U/L Total Protein 6.6 (6.5-8.0) g/dL Albumin 3.3 L (3.5-5.0) g/dL Urine Color Yellow Urine Appearance Clear Urine pH 5.5 (5.0-9.0) Ur Specific [place] 1.010 (1.005-1.025) Urine Protein Negative (Neg-Trace) mg/dL Urine Glucose (UA) Negative (Negative) mg/dL Urine Ketones Negative (Negative) mg/dL Urine Blood Negative (Negative) Urine Nitrite Negative (Negative) Ur Leukocyte Esterase Negative (Negative) Salicylates < 5.0 L (15-30) mg/dL Urine Opiates Screen POSITIVE H (Not Detect) Ur Buprenorphine Scrn Not Detected (Not Detect) ng/mL Ur Oxycodone Screen Not Detected (Not Detect) ng/mL Urine Methadone Screen Positive H (Not Detect) ng/mL Urine Fentanyl Screen POSITIVE H (Not Detect) Acetaminophen < 3 (<30) mcg/mL Ur Barbiturates Screen Not Detected (Not Detect) Ur Phencyclidine Scrn Not Detected (Not Detect) Ur Amphetamines Screen Not Detected (Not Detect) U Benzodiazepines Scrn POSITIVE H (Not Detect) Urine Cocaine Screen Not Detected (Not Detect) U Marijuana (THC) Screen POSITIVE H (Not Detect) Ethyl Alcohol < 10 mg/dL Discharge Plan Discharge Clinical Impression: Depression with suicidal ideation Patient Disposition: Still a Patient Prescriptions: No Action methadone 10 mg/mL Concentrate 160 mg PO QAM Rx Instructions: Patient is on a split dose 160 mg in am and 105 mg in pm. Verified by Robinson NEIL methadone 10 mg/mL Concentrate 105 mg PO QPM Rx Instructions: Patient is on a split dose 160 mg in am and 105 mg in pm Verified by Robinson trazodone 50 mg Tablet 50 mg PO BEDTIME PRN (Reason: Insomnia) Qty: 30 0RF mirtazapine 30 mg Tablet 30 mg PO BEDTIME Qty: 30 0RF omeprazole 20 mg Capsule,Delayed Release(Dr/Ec) 20 mg PO DAILY@0630 Qty: 30 0RF Creon 24,000-76,000 -120,000 unit Capsule,Delayed Release(Dr/Ec) 1 cap PO TIDWM Qty: 90 0RF Interventions: [place]-Suicide Risk Severity Scale Last Done: 04/22/24 01:28 Print Language: Serbian
[2024-04-20 20:28] LABS: Acetaminophen LAB < 3 mcg/mL (<30); Alanine Aminotransferase 18 U/L (0-40); Albumin Level 3.3 g/dL (3.5-5.0); Alkaline Phosphatase 72 U/L (39-117); Anion Gap 16 (12-20); Aspartate Amino Transferase 29 U/L (5-37); Bilirubin Total 0.1 mg/dL (0.0-1.0); Blood Urea Nitrogen 19 mg/dL (9-16); Calcium 8.3 mg/dL (8.4-10.2); Carbon Dioxide 24 mmol/L (22-29); Chloride 108 mmol/L (96-108); Creatinine Clr Calc Pharmacy 36.9; Estimated Glomerular Filt Rate 49; Ethanol < 10 mg/dL; Glucose Random 131 mg/dL (60-115); Potassium 4.7 mmol/L (3.3-5.1); Salicylate < 5.0 mg/dL (15-30); Sodium 143 mmol/L (135-145); Total Protein 6.6 g/dL (6.5-8.0)
--- NOTE | 2024-04-20 20:45 | PC.NURSE ---
Pt stated he was on methadone split dose attempted to call [facility] to verify dose [phone] x 2 and no one picked up
--- NOTE | 2024-04-20 20:59 | PC.NURSE ---
[facility] was contacted able to verify methadone doses
[2024-04-20] MEDS: methADONE HCl 20 MG/2 ML ORAL.CONC 105 MG PO (21:07)
[2024-04-21 01:23] LABS: Appearance Urine Clear; Color Urine Yellow; Glucose Urine UA Negative (Negative); Leukocyte Esterase Urine Negative (Negative); Nitrite Urine Negative (Negative); PH 5.5 (5.0-9.0); Urine Blood Negative (Negative); Urine Ketones Negative (Negative); Urine Protein Negative (Neg-Trace)
[2024-04-21 01:27] LABS: Amphetamine Screen Urine Not Detected (Not Detect); Barbiturates, Urine Not Detected (Not Detect); Benzodiazepines Screen Urine POSITIVE (Not Detect); Buprenorphine Scr Not Detected (Not Detect); Cannabinoid Screen Urine POSITIVE (Not Detect); Cocaine Screen Urine Not Detected (Not Detect); Fentanyl, urine POSITIVE (Not Detect); Methadone Screen, Urine Positive (Not Detect); Opiate Screen Urine POSITIVE (Not Detect); Oxycodone Screen Urine Not Detected (Not Detect); Phencyclidine Screen Urine Not Detected (Not Detect)
[2024-04-21 05:28] VITALS: BP 123/81; PULSE 60; RESP 17; TEMP 36.8; O2SAT 96
--- NOTE | 2024-04-21 06:36 | HE.PHANOTE ---
METHADONE Dose: 160 mg QAM and 105 mg QPM, per Halle JIMENEZ at [facility]. Last dose 04/20 @0717 (160mg).
[2024-04-21] MEDS: Omeprazole 20 MG CAPSULE.DR PO (07:22)
[2024-04-21] MEDS: Lipase/Prot/Amylase 24/76/120K 1 CAP CAPSULE.DR PO ×3 (07:22→17:32)
[2024-04-21] MEDS: methADONE HCl 20 MG/2 ML ORAL.CONC 160 MG PO (08:36)
[2024-04-21] MEDS: Acetaminophen 325 MG TABLET 650 MG PO (09:56)
--- NOTE | 2024-04-21 10:37 | PC.NURSE ---
Patient ambulating with steady gait around BH pod, offering no complaints other than 5/10 unspecific pain which was medicated with Tylenol. Patient appears to be in no apparent distress. Pending CARE team shon
--- NOTE | 2024-04-21 12:31 | PC.NURSE ---
Patient reporting increased anxiety and discomfort, MD Laura perez
[2024-04-21 12:36] VITALS: BP 129/82; PULSE 61; RESP 14; TEMP 36.4; O2SAT 96
[2024-04-21] MEDS: LORazepam 1 MG TABLET PO ×2 (13:00→19:17)
--- NOTE | 2024-04-21 19:10 | PC.NURSE ---
patient appears to remain at rest at present, recently approached this tag writer requesting ativan. patient appears in no distress.
[2024-04-21 19:45] VITALS: BP 123/82; PULSE 67; RESP 16; TEMP 37.4; O2SAT 99
--- NOTE | 2024-04-21 20:32 | MHC.CARE ---
[facility] was called for prior auth, once placement is secured [facility] needs to be contacted.
[2024-04-21] MEDS: Mirtazapine 30 MG TABLET PO (20:40)
[2024-04-21] MEDS: methADONE HCl 20 MG/2 ML ORAL.CONC 105 MG PO (20:40)
--- NOTE | 2024-04-22 | ECG_ITS ---
Test Reason : check QT Blood Pressure : / mmHG Vent. Rate : 060 BPM Atrial Rate : 060 BPM P-R Int : 152 ms QRS Dur : 076 ms QT Int : 474 ms P-R-T Axes : 000 061 056 degrees QTc Int : 474 ms Atrial-paced rhythm Low voltage QRS Septal infarct , age undetermined Abnormal ECG When compared with ECG of 17-DEC-2023 17:05, Septal infarct is now Present Referred By: Shad Matthews Electronically Signed By:NICOLE BOGGS MD
[2024-04-22] MEDS: Omeprazole 20 MG CAPSULE.DR PO (06:08)
[2024-04-22 06:14] VITALS: BP 132/81; PULSE 60; TEMP 36.8; O2SAT 97
[2024-04-22] MEDS: Lipase/Prot/Amylase 24/76/120K 1 CAP CAPSULE.DR PO ×3 (07:21→18:29)
[2024-04-22] MEDS: methADONE HCl 20 MG/2 ML ORAL.CONC 160 MG PO (08:12)
[2024-04-22] MEDS: LORazepam 1 MG TABLET PO (08:17)
--- NOTE | 2024-04-22 10:18 | PC.NURSE ---
Pt alert and oriented, breathing even and unlabored. Denies pain, medicated per MAR with no issues. Resting.
--- NOTE | 2024-04-22 14:45 | PC.NURSE ---
report given to JOLYNN Villagomez on S1 at this time. pt being transported via RNs from psychiatric unit as well as security.
[2024-04-22 14:55] VITALS: BP 177/86; PULSE 67; RESP 18; TEMP 36.6; O2SAT 97
--- NOTE | 2024-04-22 15:07 | PC.ADMIT ---
Addendum entered by Dahlia Carson RN 04/22/24 16:06: Patient signed a CV today. Original Note: 68 year old white male who is here for a Major Depressive Disorder, Anxiety, vague SI who took several Klonopin a few days ago in hopes to end his life, suicide attempt. He was transferred here from our the ED Pod at 1450 via wheelchair. He is weak, unmotivated with decreased PO intake over the last several weeks after his last pancreatic surgery, Whipple Procedure. Patient also also has a pacemaker in his left upper chest, placed in 2017 he thinks here at [facility]. He is an active smoker and would like a Nicotine patch. His tox screen was positive for Fentanyl, Opiates, Methadone, Benzo's and Marijuana. He is at risk for Benzo withdrawal. His last Ativan was at 0817 and he continues on Methadone here BID. His skin is clear. He is alert and oriented x4 and would like to get straightened out so he can go home. 97.9-18-67-177/86, O2 Sat 97% on room air. He admits to having a lot of abdominal pain causing him to take pills for pain relief.
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
[2024-04-22 16:00] VITALS: BMI 15.5
[2024-04-22 16:12] VITALS: BMI 16.5
--- NOTE | 2024-04-22 16:30 | MHC.CLN ---
NUTRITION REGULAR DIET. ADDING ENSURE TID TO INCREASE NUTRITIONAL INTAKE. PROVIDES 1050 KCALS, 60 G PROTEIN. QUALIFIES MODERATELY MALNOURISHED IN THE CONTEXT OF SOCIAL/BEHAVIORAL/ENVIRONMENTAL FACTORS. ACTIVE POLYSUBSTANCE ABUSE. PROVIDE FOOD PREFERENCES ABLE. FOLLOW FOR PO INTAKE AND WEIGHT. SEE CLINICAL NUTRITION ASSESSMENT 04/22/24.
[2024-04-22] MEDS: clonazePAM 1 MG TABLET PO ×2 (18:29→20:24)
[2024-04-22 20:22] VITALS: BP 137/83; PULSE 59; RESP 14; TEMP 37.1; O2SAT 97
[2024-04-22] MEDS: Mirtazapine 30 MG TABLET PO (20:24)
[2024-04-22] MEDS: methADONE HCl 20 MG/2 ML ORAL.CONC 105 MG PO (20:24)
[2024-04-23] MEDS: Omeprazole 20 MG CAPSULE.DR PO (05:30)
[2024-04-23 08:39] LABS: Alanine Aminotransferase 20 U/L (0-40); Albumin Level 3.4 g/dL (3.5-5.0); Alkaline Phosphatase 82 U/L (39-117); Anion Gap 11 (12-20); Aspartate Amino Transferase 25 U/L (5-37); Bilirubin Total 0.2 mg/dL (0.0-1.0); Blood Urea Nitrogen 25 mg/dL (9-16); Calcium 9.1 mg/dL (8.4-10.2); Carbon Dioxide 29 mmol/L (22-29); Chloride 107 mmol/L (96-108); Cholesterol 148 mg/dL (<200); Creatinine Clr Calc Pharmacy 40.6; Estimated Glomerular Filt Rate 54; Glucose Fasting 90 mg/dL (60-99); HDL Cholesterol 37 mg/dL (>40); LDL Cholesterol Calculated 94 mg/dL (<100); Potassium 4.7 mmol/L (3.3-5.1); Sodium 142 mmol/L (135-145); Total Protein 7.2 g/dL (6.5-8.0); Triglycerides 87 mg/dL (<150)
[2024-04-23 08:55] VITALS: BP 122/75; PULSE 62; RESP 16; TEMP 36.8; O2SAT 98
[2024-04-23] MEDS: clonazePAM 1 MG TABLET PO ×2 (08:57→20:11)
[2024-04-23] MEDS: methADONE HCl 20 MG/2 ML ORAL.CONC 160 MG PO (08:57)
[2024-04-23] MEDS: Lipase/Prot/Amylase 24/76/120K 1 CAP CAPSULE.DR PO ×3 (08:57→16:43)
--- NOTE | 2024-04-23 11:45 | PC.NURSE ---
This writer editor asked this patient if he would like nicotine replacement therapy while he is inpatient. Pt declined at this time.
--- NOTE | 2024-04-23 14:51 | P.PNPSI_ITS ---
Subjective Subjective Date of Service: 04/23/24 Reason For Visit: SI Subjective Notes: Conditional Voluntary Interim History: Pt slept through the night. Pt expressed his sadness over the fact that he continues to struggle with substance use. He endorses feeling hopeless, shame and guilt related to ongoing substance use. He denies SI/HI. No VH/AH. He reports he is open to having more supports in the community. No behavioral concerns. Pt withdrawn and mostly in his room. Pt encouraged to attend groups. for now will continue remeron but may consider changing antidepressants. Medication Compliance: Yes Mental Status Exam Mental Status Exam Narrative: Appearance:thin, malnourished, fair hygiene, in NAD Behavior:cooperative Psychomotor: no agitation or retardation noted Speech:clear, normal rate/rhythm/volume, spontaneous TP:linear TC:feeling tired Mood: disgusted Affect:constricted SI:denies HI:none VH/AH:none Delusions:none Insight/judgment: poor x 2. Memory/cog: alert, oriented x 3. Diagnostics Vital Signs (24Hr): Vital Signs - 24 hr 04/22/24 14:55 04/22/24 20:22 04/23/24 08:55 Temperature 97.9 F 98.7 F 98.2 F Pulse Rate 67 59 62 Respiratory Rate 18 14 16 Blood Pressure 177/86 H 137/83 122/75 Pulse Oximetry 97 97 98 Oxygen Delivery Method Room Air Room Air Room Air BMI result Body Mass Index 16.5 Labs 04/20/24 20:03 04/23/24 08:05 Labs: Laboratory Results - last 48 hr 04/23/24 08:05 Sodium 142 Potassium 4.7 Chloride 107 Carbon Dioxide 29 Anion Gap 11 L BUN 25 H Creatinine 1.32 Estim Creat Clear Calc 40.6 Estimated GFR 54 Fasting Glucose 90 Calcium 9.1 D Total Bilirubin 0.2 AST 25 ALT 20 Alkaline Phosphatase 82 Total Protein 7.2 Albumin 3.4 L Triglycerides 87 Cholesterol 148 LDL Cholesterol, Calc 94 HDL Cholesterol 37 L Medications Medications Current Medications Acetaminophen (Acetaminophen 325 Mg Tablet) 975 mg PO Q6H PRN PRN Reason: Pain, Moderate(Pain Scale 4-6) Al Hydroxide/Mg Hydroxide (Magnesium Hydrox/Alum Hydrox 30 Ml Oral.Susp) 30 ml PO Q6H PRN PRN Reason: Heartburn/Nausea Lipase/Protease/Amylase (Lipase/Prot/Amylase 24/76/120k 1 Cap Capsule.) 1 cap PO TIDWM [facility] Last Admin: 04/23/24 11:41 Dose: 1 cap Clonazepam (Clonazepam 1 Mg Tablet) 1 mg PO BID [facility] Last Admin: 04/23/24 08:57 Dose: 1 mg Hydroxyzine HCl (Hydroxyzine Hcl 25 Mg Tablet) 25 mg PO Q6H PRN PRN Reason: Anxiety Magnesium Hydroxide (Milk Of Magnesia 30 Ml Oral.Susp) 30 ml PO DAILY PRN PRN Reason: Constipation Methadone HCl (Methadone Hcl 20 Mg/2 Ml Oral.Conc) 105 mg PO BEDTIME [facility] Last Admin: 04/22/24 20:24 Dose: 105 mg Methadone HCl (Methadone Hcl 20 Mg/2 Ml Oral.Conc) 160 mg PO DAILY [facility] Last Admin: 04/23/24 08:57 Dose: 160 mg Mirtazapine (Mirtazapine 30 Mg Tablet) 30 mg PO BEDTIME [facility] Last Admin: 04/22/24 20:24 Dose: 30 mg Omeprazole (Omeprazole 20 Mg Capsule.) 20 mg PO DAILY@0630 [facility] Last Admin: 04/23/24 05:30 Dose: 20 mg Trazodone HCl (Trazodone Hcl 50 Mg Tablet) 50 mg PO BEDTIME MRX1 PRN PRN Reason: Insomnia Allergies Allergies Allergy/AdvReac Type Severity Reaction Status Date / Time Penicillins [PENICILLINS] Allergy Unknown UNKNOWN, Verified 04/20/24 19:08 rash Assessment & Plan Assessment & Plan (1) MDD (major depressive disorder), recurrent episode, moderate: Status: Acute Code(s): F33.1 - Major depressive disorder, recurrent, moderate (2) Benzodiazepine dependence, continuous: Status: Acute Code(s): F13.20 - Sedative, hypnotic or anxiolytic dependence, uncomplicated (3) Opioid use disorder, severe, dependence: Status: Acute Code(s): F11.20 - Opioid dependence, uncomplicated Plan Mr. Spears is a 68 year-old male with hx of depression, opioid use disorder and benzodiazepine use disorder. He self presented to [facility] ED reporting increased depressed mood, suicide attempt with clonazepam. Utox positive for fentanyl, benzodiazepine, THC, methadone. We discussed risks, benefits and alternative treatment options. WIll do modified benzo taper with clonazepam 1mg po BID. He did fine last time with this dose despite reported daily use of 10mg of clonazepam. Also keeping in mind that he is on a high dose of methadone and risk of respiratory suppression. He is also on gabapentin. Will monitor exacerbation of benzo withdrawal. He agrees to continue remeron as antidepressant. PLAN 04/23 continue current tx. Reason for continued inpatient stay Substantial Risk for: inability to function Time Spent With Patient Time: Total time managing care of this patient today ____ minutes.
[2024-04-23 20:00] VITALS: BP 121/62; PULSE 78; RESP 18; TEMP 36.2; O2SAT 98
[2024-04-23] MEDS: Sennosides/Docusate Sodium TABLET 2 TAB PO (20:11)
[2024-04-23] MEDS: Mirtazapine 30 MG TABLET PO (20:11)
[2024-04-23] MEDS: methADONE HCl 20 MG/2 ML ORAL.CONC 105 MG PO (20:54)
[2024-04-24] MEDS: Omeprazole 20 MG CAPSULE.DR PO (06:12)
[2024-04-24 08:43] VITALS: BP 148/85; PULSE 63; RESP 15; TEMP 36.4; O2SAT 99
[2024-04-24] MEDS: methADONE HCl 20 MG/2 ML ORAL.CONC 160 MG PO (08:44)
[2024-04-24] MEDS: Lipase/Prot/Amylase 24/76/120K 1 CAP CAPSULE.DR PO ×2 (08:44→11:27)
[2024-04-24] MEDS: clonazePAM 1 MG TABLET PO ×2 (08:44→20:39)
[2024-04-24] MEDS: Sennosides/Docusate Sodium TABLET 2 TAB PO ×2 (08:44→20:39)
--- NOTE | 2024-04-24 14:32 | MHC.CLN ---
F/U REGULAR DIET. PATIENT DISLIKES ENSURE SUPPLEMENT AND MAGIC CUP FORTIFIED ICE CREAM. WOULD LIKE TO EAT 3 MEALS PER DAY AND ORDER EXTRA FOOD AT MEALS IF DESIRED. QUALIFIES MODERATELY MALNOURISHED IN THE CONTEXT OF SOCIAL/BEHAVIORAL/ENVIRONMENTAL FACTORS. PROVIDE FOOD PREFERENCES ABLE. REPORTS THAT HE IS EATING WELL. FOLLOW FOR PO INTAKE AND WEIGHT. RD TO FOLLOW UP WEEKLY.
--- NOTE | 2024-04-24 16:50 | HO.PSYCHPN ---
Subjective Subjective Date of Service: 04/24/24 Reason For Visit: SI Subjective Notes: Conditional Voluntary Interim History: Pt slept through the night. Pt open about his struggles with substance use and how they have affected her life, relationships. He does have a very supportive brother who he is very thank you for. He reports what I am doing is not working, I need more help. We discuss the possibility of voluntary repaye... so at least rent is paid and he is not at risk of losing his apartment. He does agree to meet with reading recovery teacher and maybe therapist. He denies SI/HI. encouraged to attend groups. Review of Systems Constitutional: Denies body ache(s), Denies chills and Denies headache(s) Eyes: Denies blurry vision Denies headache(s) Cardiovascular: Denies chest pain and Denies dyspnea Respiratory: Denies cough and Denies dyspnea Gastrointestinal: Denies abdominal pain, Denies nausea and Denies vomiting Skin/Breast: Denies rash Denies headache(s) Psychiatric: Reports depression and Reports suicidal ideation Mental Status Exam Mental Status Exam Narrative: Appearance:thin, malnourished, fair hygiene, in NAD Behavior:cooperative Psychomotor: no agitation or retardation noted Speech:clear, normal rate/rhythm/volume, spontaneous TP:linear TC:feeling tired Mood: disgusted Affect:constricted SI:denies HI:none VH/AH:none Delusions:none Insight/judgment: poor x 2. Memory/cog: alert, oriented x 3. Diagnostics Vital Signs (24Hr): Vital Signs - 24 hr 04/23/24 20:00 04/24/24 08:43 Temperature 97.1 F 97.5 F Pulse Rate 78 63 Respiratory Rate 18 15 Blood Pressure 121/62 148/85 H Pulse Oximetry 98 99 Oxygen Delivery Method Room Air Room Air BMI result Body Mass Index 16.5 Labs 04/20/24 20:03 04/23/24 08:05 Labs: Laboratory Results - last 48 hr 04/23/24 08:05 Sodium 142 Potassium 4.7 Chloride 107 Carbon Dioxide 29 Anion Gap 11 L BUN 25 H Creatinine 1.32 Estim Creat Clear Calc 40.6 Estimated GFR 54 Fasting Glucose 90 Calcium 9.1 D Total Bilirubin 0.2 AST 25 ALT 20 Alkaline Phosphatase 82 Total Protein 7.2 Albumin 3.4 L Triglycerides 87 Cholesterol 148 LDL Cholesterol, Calc 94 HDL Cholesterol 37 L Medications Medications Current Medications Acetaminophen (Acetaminophen 325 Mg Tablet) 975 mg PO Q6H PRN PRN Reason: Pain, Moderate(Pain Scale 4-6) Al Hydroxide/Mg Hydroxide (Magnesium Hydrox/Alum Hydrox 30 Ml Oral.Susp) 30 ml PO Q6H PRN PRN Reason: Heartburn/Nausea Lipase/Protease/Amylase (Lipase/Prot/Amylase 24/76/120k 1 Cap Capsule.) 1 cap PO TIDWM [facility] Last Admin: 04/24/24 11:27 Dose: 1 cap Clonazepam (Clonazepam 1 Mg Tablet) 1 mg PO BID [facility] Last Admin: 04/24/24 08:44 Dose: 1 mg Hydroxyzine HCl (Hydroxyzine Hcl 25 Mg Tablet) 25 mg PO Q6H PRN PRN Reason: Anxiety Magnesium Hydroxide (Milk Of Magnesia 30 Ml Oral.Susp) 30 ml PO DAILY PRN PRN Reason: Constipation Methadone HCl (Methadone Hcl 20 Mg/2 Ml Oral.Conc) 105 mg PO BEDTIME [facility] Last Admin: 04/23/24 20:54 Dose: 105 mg Methadone HCl (Methadone Hcl 20 Mg/2 Ml Oral.Conc) 160 mg PO DAILY [facility] Last Admin: 04/24/24 08:44 Dose: 160 mg Mirtazapine (Mirtazapine 30 Mg Tablet) 30 mg PO BEDTIME [facility] Last Admin: 04/23/24 20:11 Dose: 30 mg Omeprazole (Omeprazole 20 Mg Capsule.) 20 mg PO DAILY@0630 [facility] Last Admin: 04/24/24 06:12 Dose: 20 mg Senna/Docusate Sodium (Sennosides/Docusate Sodium Tablet) 2 tab PO BID [facility] Last Admin: 04/24/24 08:44 Dose: 2 tab Simethicone (Simethicone 80 Mg Tab.Chew) 80 mg PO QIDWMHS PRN PRN Reason: bloating Trazodone HCl (Trazodone Hcl 50 Mg Tablet) 50 mg PO BEDTIME MRX1 PRN PRN Reason: Insomnia Allergies Allergies Allergy/AdvReac Type Severity Reaction Status Date / Time Penicillins [PENICILLINS] Allergy Unknown UNKNOWN, Verified 04/20/24 19:08 rash Assessment & Plan Assessment & Plan (1) MDD (major depressive disorder), recurrent episode, moderate: Status: Acute Code(s): F33.1 - Major depressive disorder, recurrent, moderate (2) Benzodiazepine dependence, continuous: Status: Acute Code(s): F13.20 - Sedative, hypnotic or anxiolytic dependence, uncomplicated (3) Opioid use disorder, severe, dependence: Status: Acute Code(s): F11.20 - Opioid dependence, uncomplicated Plan Mr. Spears is a 68 year-old male with hx of depression, opioid use disorder and benzodiazepine use disorder. He self presented to [facility] ED reporting increased depressed mood, suicide attempt with clonazepam. Utox positive for fentanyl, benzodiazepine, THC, methadone. We discussed risks, benefits and alternative treatment options. WIll do modified benzo taper with clonazepam 1mg po BID. He did fine last time with this dose despite reported daily use of 10mg of clonazepam. Also keeping in mind that he is on a high dose of methadone and risk of respiratory suppression. He is also on gabapentin. Will monitor exacerbation of benzo withdrawal. He agrees to continue remeron as antidepressant. PLAN 04/24 continue current tx. referral to addiction medicine for reading recovery teacher. Reason for continued inpatient stay Substantial Risk for: inability to function Time Spent With Patient Time: Total time managing care of this patient today ____ minutes.
[2024-04-24 20:00] VITALS: BP 134/82; PULSE 59; RESP 16; TEMP 36.1; O2SAT 97
[2024-04-24] MEDS: Mirtazapine 30 MG TABLET PO (20:39)
[2024-04-24] MEDS: methADONE HCl 20 MG/2 ML ORAL.CONC 105 MG PO (21:18)
[2024-04-25] MEDS: Omeprazole 20 MG CAPSULE.DR PO (05:34)
[2024-04-25 09:00] VITALS: BP 155/88; PULSE 74; RESP 18; TEMP 36.8; O2SAT 99
[2024-04-25] MEDS: clonazePAM 1 MG TABLET PO ×2 (09:07→20:23)
[2024-04-25] MEDS: Sennosides/Docusate Sodium TABLET 2 TAB PO ×2 (09:07→20:24)
[2024-04-25] MEDS: Lipase/Prot/Amylase 24/76/120K 1 CAP CAPSULE.DR PO ×2 (09:07→16:54)
[2024-04-25] MEDS: methADONE HCl 20 MG/2 ML ORAL.CONC 160 MG PO (09:08)
--- NOTE | 2024-04-25 09:59 | HO.PSYCHPN ---
Subjective Subjective Date of Service: 04/25/24 Reason For Visit: SI Subjective Notes: Conditional Voluntary Interim History: Pt reports some difficulty sleeping last night. He reports chronic struggle with constipation, easily feeling full and inability to gain weight. He is moderately malnourish. No signs of malignacies have been identified to suspect cause of weight loss- which at this point it has plateau. 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 He also takes remeron which further contributes to constipation. We had discussion of working on regular bowel movement regimen- decrease constipation, hopefully will help GI motility and decrease early sense of fullness with just minimal oral intake. Will switch remeron to sertraline. Add mag oxide 400mg po qhs. He denies SI/HI. He is more open to have supports in the community for dual dx tx. No behavioral concerns. Diagnostics Vital Signs (24Hr): Vital Signs - 24 hr 04/24/24 20:00 Temperature 97 F Pulse Rate 59 Respiratory Rate 16 Blood Pressure 134/82 Pulse Oximetry 97 Oxygen Delivery Method Room Air BMI result Body Mass Index 16.5 Labs 04/20/24 20:03 04/23/24 08:05 Medications Medications Current Medications Acetaminophen (Acetaminophen 325 Mg Tablet) 975 mg PO Q6H PRN PRN Reason: Pain, Moderate(Pain Scale 4-6) Al Hydroxide/Mg Hydroxide (Magnesium Hydrox/Alum Hydrox 30 Ml Oral.Susp) 30 ml PO Q6H PRN PRN Reason: Heartburn/Nausea Lipase/Protease/Amylase (Lipase/Prot/Amylase 24/76/120k 1 Cap Capsule.) 1 cap PO TIDWM COUNTS [facility] BEDS AT [facility] Last Admin: 04/25/24 09:07 Dose: 1 cap Clonazepam (Clonazepam 1 Mg Tablet) 1 mg PO BID [facility] 234 BEDS AT [facility] Last Admin: 04/25/24 09:07 Dose: 1 mg Hydroxyzine HCl (Hydroxyzine Hcl 25 Mg Tablet) 25 mg PO Q6H PRN PRN Reason: Anxiety Magnesium Hydroxide (Milk Of Magnesia 30 Ml Oral.Susp) 30 ml PO DAILY PRN PRN Reason: Constipation Methadone HCl (Methadone Hcl 20 Mg/2 Ml Oral.Conc) 105 mg PO BEDTIME [facility]S [facility]CLUDE 234 BEDS AT [facility] Last Admin: 04/24/24 21:18 Dose: 105 mg Methadone HCl (Methadone Hcl 20 Mg/2 Ml Oral.Conc) 160 mg PO DAILY [facility]S [facility]CLUDE 234 BEDS AT [facility] Last Admin: 04/25/24 09:08 Dose: 160 mg Mirtazapine (Mirtazapine 30 Mg Tablet) 30 mg PO BEDTIME COUNTS [facility]CLUDE 234 BEDS AT [facility] Last Admin: 04/24/24 20:39 Dose: 30 mg Omeprazole (Omeprazole 20 Mg Capsule.) 20 mg PO DAILY@0630 [facility]S [facility]CLUDE 234 BEDS AT [facility] Last Admin: 04/25/24 05:34 Dose: 20 mg Senna/Docusate Sodium (Sennosides/Docusate Sodium Tablet) 2 tab PO BID [facility] 234 BEDS AT [facility] Last Admin: 04/25/24 09:07 Dose: 2 tab Simethicone (Simethicone 80 Mg Tab.Chew) 80 mg PO QIDWMHS PRN PRN Reason: bloating Trazodone HCl (Trazodone Hcl 50 Mg Tablet) 50 mg PO BEDTIME MRX1 PRN PRN Reason: Insomnia Allergies Allergies Allergy/AdvReac Type Severity Reaction Status Date / Time Penicillins [PENICILLINS] Allergy Unknown UNKNOWN, Verified 04/20/24 19:08 rash Assessment & Plan Assessment & Plan (1) MDD (major depressive disorder), recurrent episode, moderate: Status: Acute Code(s): F33.1 - Major depressive disorder, recurrent, moderate (2) Benzodiazepine dependence, continuous: Status: Acute Code(s): F13.20 - Sedative, hypnotic or anxiolytic dependence, uncomplicated (3) Opioid use disorder, severe, dependence: Status: Acute Code(s): F11.20 - Opioid dependence, uncomplicated Plan Mr. Spears is a 68 year-old male with hx of depression, opioid use disorder and benzodiazepine use disorder. He self presented to [facility] ED reporting increased depressed mood, suicide attempt with clonazepam. Utox positive for fentanyl, benzodiazepine, THC, methadone. We discussed risks, benefits and alternative treatment options. WIll do modified benzo taper with clonazepam 1mg po BID. He did fine last time with this dose despite reported daily use of 10mg of clonazepam. Also keeping in mind that he is on a high dose of methadone and risk of respiratory suppression. He is also on gabapentin. Will monitor exacerbation of benzo withdrawal. He agrees to continue remeron as antidepressant. PLAN 04/24 continue current tx. referral to addiction medicine for disaster recovery manager. 04/25 will start mag oxide 400mg po qhs for chronic constipation, sleep. will switch remeron to sertraline. it does appear that he feels full may be due to slowed motility s/s to opioid induced constipation. Reason for continued inpatient stay Substantial Risk for: inability to function Time Spent With Patient Time: Total time managing care of this patient today ____ minutes.
[2024-04-25 13:47] VITALS: BMI 16.0
--- NOTE | 2024-04-25 18:39 | MHC.RECOVSUP ---
? Reason for consult Recovery support o Current location: 184[address] o Identified substance use concern: Alcohol - Support ? Intervention: o Community resources provided o Harm reduction discussion ? Plan: o Patient to follow up with [facility] after discharge ? Additional information: Meet with patient and we talked about recovery and harm reduction. We also talked about different pathway and all about the recovery center, Resources was given.
[2024-04-25 19:57] VITALS: BP 140/79; PULSE 69; RESP 18; TEMP 36.8; O2SAT 98
[2024-04-25] MEDS: Mirtazapine 30 MG TABLET PO (20:23)
[2024-04-25] MEDS: traZODone HCL 50 MG TABLET PO (20:24)
[2024-04-25] MEDS: methADONE HCl 20 MG/2 ML ORAL.CONC 105 MG PO (20:24)
[2024-04-25] MEDS: hydrOXYzine HCL 25 MG TABLET PO (20:24)
[2024-04-25] MEDS: Magnesium Oxide 400 MG TABLET PO (22:54)
[2024-04-25] MEDS: Melatonin 3 MG TABLET 6 MG PO (22:54)
[2024-04-26] MEDS: Omeprazole 20 MG CAPSULE.DR PO (06:06)
[2024-04-26 08:00] VITALS: BP 123/74; PULSE 66; RESP 18; TEMP 37.1; O2SAT 98
[2024-04-26] MEDS: Lipase/Prot/Amylase 24/76/120K 1 CAP CAPSULE.DR PO ×3 (08:29→16:28)
[2024-04-26] MEDS: Sertraline HCL 50 MG TABLET PO (08:29)
[2024-04-26] MEDS: Sennosides/Docusate Sodium TABLET 2 TAB PO ×2 (08:29→20:06)
[2024-04-26] MEDS: clonazePAM 1 MG TABLET PO ×2 (08:29→20:12)
[2024-04-26] MEDS: methADONE HCl 20 MG/2 ML ORAL.CONC 160 MG PO (09:00)
--- NOTE | 2024-04-26 09:52 | HO.PSYCHPN ---
Subjective Subjective Date of Service: 04/26/24 Reason For Visit: SI Subjective Notes: Conditional Voluntary Interim History: Pt reports some difficulty sleeping last night. He reports feeling anxious today and last evening and wonders if related to benzo withdrawal or craving. He denies SI/HI. He reports he is trying to distract his mind. He denies pain. He met with tin recovery worker yesterday. He is taking meds as prescribed- he had had bowel movement. Review of Systems Constitutional: Denies body ache(s), Denies chills and Denies headache(s) Eyes: Denies blurry vision Denies headache(s) Cardiovascular: Denies chest pain and Denies dyspnea Respiratory: Denies cough and Denies dyspnea Gastrointestinal: Denies abdominal pain, Denies nausea and Denies vomiting Skin/Breast: Denies rash Denies headache(s) Psychiatric: Reports depression and Reports suicidal ideation Mental Status Exam Mental Status Exam Narrative: Appearance:thin, malnourished, fair hygiene, in NAD Behavior:cooperative Psychomotor: no agitation or retardation noted Speech:clear, normal rate/rhythm/volume, spontaneous TP:linear TC:feeling tired Mood: disgusted Affect:constricted SI:denies HI:none VH/AH:none Delusions:none Insight/judgment: poor x 2. Memory/cog: alert, oriented x 3. Diagnostics Vital Signs (24Hr): Vital Signs - 24 hr 04/25/24 19:57 Temperature 98.3 F Pulse Rate 69 Respiratory Rate 18 Blood Pressure 140/79 H Pulse Oximetry 98 Oxygen Delivery Method Room Air BMI result Body Mass Index 16.0 Labs 04/20/24 20:03 04/23/24 08:05 Medications Medications Current Medications Acetaminophen (Acetaminophen 325 Mg Tablet) 975 mg PO Q6H PRN PRN Reason: Pain, Moderate(Pain Scale 4-6) Al Hydroxide/Mg Hydroxide (Magnesium Hydrox/Alum Hydrox 30 Ml Oral.Susp) 30 ml PO Q6H PRN PRN Reason: Heartburn/Nausea Lipase/Protease/Amylase (Lipase/Prot/Amylase 24/76/120k 1 Cap Capsule.) 1 cap PO TIDWM [facility] Last Admin: 04/26/24 08:29 Dose: 1 cap Clonazepam (Clonazepam 1 Mg Tablet) 1 mg PO BID [facility] Last Admin: 04/26/24 08:29 Dose: 1 mg Hydroxyzine HCl (Hydroxyzine Hcl 25 Mg Tablet) 25 mg PO Q6H PRN PRN Reason: Anxiety Last Admin: 04/25/24 20:24 Dose: 25 mg Magnesium Hydroxide (Milk Of Magnesia 30 Ml Oral.Susp) 30 ml PO DAILY PRN PRN Reason: Constipation Magnesium Oxide (Magnesium Oxide 400 Mg Tablet) 400 mg PO BEDTIME SKIP Last Admin: 04/25/24 22:54 Dose: 400 mg Melatonin (Melatonin 3 Mg Tablet) 6 mg PO BEDTIME SKIP Last Admin: 04/25/24 22:54 Dose: 6 mg Methadone HCl (Methadone Hcl 20 Mg/2 Ml Oral.Conc) 105 mg PO BEDTIME [facility] Last Admin: 04/25/24 20:24 Dose: 105 mg Methadone HCl (Methadone Hcl 20 Mg/2 Ml Oral.Conc) 160 mg PO DAILY [facility] Last Admin: 04/26/24 09:00 Dose: 160 mg Mirtazapine (Mirtazapine 15 Mg Tablet) 15 mg PO BEDTIME SKIP Omeprazole (Omeprazole 20 Mg Capsule.Dr) 20 mg PO DAILY@0630 [facility] Last Admin: 04/26/24 06:06 Dose: 20 mg Senna/Docusate Sodium (Sennosides/Docusate Sodium Tablet) 2 tab PO BID [facility] Last Admin: 04/26/24 08:29 Dose: 2 tab Sertraline HCl (Sertraline Hcl 50 Mg Tablet) 50 mg PO DAILY [facility] Last Admin: 04/26/24 08:29 Dose: 50 mg Simethicone (Simethicone 80 Mg Tab.Chew) 80 mg PO QIDWMHS PRN PRN Reason: bloating Trazodone HCl (Trazodone Hcl 50 Mg Tablet) 50 mg PO BEDTIME MRX1 PRN PRN Reason: Insomnia Last Admin: 04/25/24 20:24 Dose: 50 mg Allergies Allergies Allergy/AdvReac Type Severity Reaction Status Date / Time Penicillins [PENICILLINS] Allergy Unknown UNKNOWN, Verified 04/20/24 19:08 rash Assessment & Plan Assessment & Plan (1) MDD (major depressive disorder), recurrent episode, moderate: Status: Acute Code(s): F33.1 - Major depressive disorder, recurrent, moderate (2) Benzodiazepine dependence, continuous: Status: Acute Code(s): F13.20 - Sedative, hypnotic or anxiolytic dependence, uncomplicated (3) Opioid use disorder, severe, dependence: Status: Acute Code(s): F11.20 - Opioid dependence, uncomplicated Plan Mr. Spears is a 68 year-old male with hx of depression, opioid use disorder and benzodiazepine use disorder. He self presented to [facility] reporting increased depressed mood, suicide attempt with clonazepam. Utox positive for fentanyl, benzodiazepine, THC, methadone. We discussed risks, benefits and alternative treatment options. WIll do modified benzo taper with clonazepam 1mg po BID. He did fine last time with this dose despite reported daily use of 10mg of clonazepam. Also keeping in mind that he is on a high dose of methadone and risk of respiratory suppression. He is also on gabapentin. Will monitor exacerbation of benzo withdrawal. He agrees to continue remeron as antidepressant. PLAN 04/24 continue current tx. referral to addiction medicine for tin recovery worker. 04/25 will start mag oxide 400mg po qhs for chronic constipation, sleep. will switch remeron to sertraline. it does appear that he feels full may be due to slowed motility s/s to opioid induced constipation. 04/26 continue tx. Reason for continued inpatient stay Substantial Risk for: inability to function Time Spent With Patient Time: Total time managing care of this patient today ____ minutes.
[2024-04-26 20:00] VITALS: BP 147/96; PULSE 68; TEMP 36.9; O2SAT 97
[2024-04-26] MEDS: Magnesium Oxide 400 MG TABLET PO (20:06)
[2024-04-26] MEDS: Melatonin 3 MG TABLET 6 MG PO (20:06)
[2024-04-26] MEDS: Mirtazapine 15 MG TABLET PO (20:06)
[2024-04-26] MEDS: methADONE HCl 20 MG/2 ML ORAL.CONC 105 MG PO (20:08)
[2024-04-27] MEDS: Omeprazole 20 MG CAPSULE.DR PO (06:15)
[2024-04-27 08:00] VITALS: BP 131/65; PULSE 60; RESP 18; TEMP 36.5; O2SAT 97
[2024-04-27] MEDS: clonazePAM 1 MG TABLET PO ×2 (08:49→20:21)
[2024-04-27] MEDS: Sennosides/Docusate Sodium TABLET 2 TAB PO ×2 (08:49→20:22)
[2024-04-27] MEDS: Lipase/Prot/Amylase 24/76/120K 1 CAP CAPSULE.DR PO ×3 (08:49→16:29)
[2024-04-27] MEDS: Sertraline HCL 50 MG TABLET PO (08:49)
[2024-04-27] MEDS: methADONE HCl 20 MG/2 ML ORAL.CONC 160 MG PO (08:50)
--- NOTE | 2024-04-27 18:35 | P.PNPSI_ITS ---
Subjective Subjective Date of Service: 04/27/24 Reason For Visit: SI Interim History: Pt reports no changes; some difficulty sleeping last night. He reports feeling anxious today He denies SI/HI. He reports he is trying to distract his mind. He denies pain. He is taking meds as prescribed- he had had bowel movement. Medication Compliance: Yes Side effects from medications: No Attending Groups: No Review of Systems Acute medical concerns: No Medical Review of Systems: unchanged Review of Systems Constitutional: Denies body ache(s), Denies chills and Denies headache(s) Eyes: Denies blurry vision Denies headache(s) Cardiovascular: Denies chest pain and Denies dyspnea Respiratory: Denies cough and Denies dyspnea Gastrointestinal: Denies abdominal pain, Denies nausea and Denies vomiting Skin/Breast: Denies rash Denies headache(s) Psychiatric: Reports depression and Reports suicidal ideation Mental Status Exam Mental Status Exam Narrative: Appearance:thin, malnourished, fair hygiene, in NAD Behavior:cooperative Psychomotor: no agitation or retardation noted Speech:clear, normal rate/rhythm/volume, spontaneous, soft spoken TP:linear TC:feeling tired Mood: disgusted Affect:constricted SI:denies HI:none VH/AH:none Delusions:none Insight/judgment: poor x 2. Memory/cog: alert, oriented x 3. Diagnostics Vital Signs (24Hr): Vital Signs - 24 hr 04/26/24 20:00 04/27/24 08:00 Temperature 98.5 F 97.7 F Pulse Rate 68 60 Respiratory Rate 18 Blood Pressure 147/96 H 131/65 Pulse Oximetry 97 97 Oxygen Delivery Method Room Air Room Air BMI result Body Mass Index 16.0 Labs 04/20/24 20:03 04/23/24 08:05 Medications Medications Current Medications Acetaminophen (Acetaminophen 325 Mg Tablet) 975 mg PO Q6H PRN PRN Reason: Pain, Moderate(Pain Scale 4-6) Al Hydroxide/Mg Hydroxide (Magnesium Hydrox/Alum Hydrox 30 Ml Oral.Susp) 30 ml PO Q6H PRN PRN Reason: Heartburn/Nausea Lipase/Protease/Amylase (Lipase/Prot/Amylase 24/76/120k 1 Cap Capsule.Dr) 1 cap PO TIDWM [facility] Last Admin: 04/27/24 16:29 Dose: 1 cap Clonazepam (Clonazepam 1 Mg Tablet) 1 mg PO BID [facility] Last Admin: 04/27/24 08:49 Dose: 1 mg Hydroxyzine HCl (Hydroxyzine Hcl 25 Mg Tablet) 25 mg PO Q6H PRN PRN Reason: Anxiety Last Admin: 04/25/24 20:24 Dose: 25 mg Magnesium Hydroxide (Milk Of Magnesia 30 Ml Oral.Susp) 30 ml PO DAILY PRN PRN Reason: Constipation Magnesium Oxide (Magnesium Oxide 400 Mg Tablet) 400 mg PO BEDTIME [facility] Last Admin: 04/26/24 20:06 Dose: 400 mg Melatonin (Melatonin 3 Mg Tablet) 6 mg PO BEDTIME [facility] Last Admin: 04/26/24 20:06 Dose: 6 mg Methadone HCl (Methadone Hcl 20 Mg/2 Ml Oral.Conc) 105 mg PO BEDTIME [facility] Last Admin: 04/26/24 20:08 Dose: 105 mg Methadone HCl (Methadone Hcl 20 Mg/2 Ml Oral.Conc) 160 mg PO DAILY [facility] Last Admin: 04/27/24 08:50 Dose: 160 mg Mirtazapine (Mirtazapine 15 Mg Tablet) 15 mg PO BEDTIME [facility] Last Admin: 04/26/24 20:06 Dose: 15 mg Omeprazole (Omeprazole 20 Mg Capsule.Dr) 20 mg PO DAILY@0630 [facility] Last Admin: 04/27/24 06:15 Dose: 20 mg Senna/Docusate Sodium (Sennosides/Docusate Sodium Tablet) 2 tab PO BID [facility] Last Admin: 04/27/24 08:49 Dose: 2 tab Sertraline HCl (Sertraline Hcl 50 Mg Tablet) 50 mg PO DAILY [facility] Last Admin: 04/27/24 08:49 Dose: 50 mg Simethicone (Simethicone 80 Mg Tab.Chew) 80 mg PO QIDWMHS PRN PRN Reason: bloating Trazodone HCl (Trazodone Hcl 50 Mg Tablet) 50 mg PO BEDTIME MRX1 PRN PRN Reason: Insomnia Last Admin: 04/25/24 20:24 Dose: 50 mg Allergies Allergies Allergy/AdvReac Type Severity Reaction Status Date / Time Penicillins [PENICILLINS] Allergy Unknown UNKNOWN, Verified 04/20/24 19:08 rash Assessment & Plan Assessment & Plan (1) MDD (major depressive disorder), recurrent episode, moderate: Status: Acute Code(s): F33.1 - Major depressive disorder, recurrent, moderate (2) Benzodiazepine dependence, continuous: Status: Acute Code(s): F13.20 - Sedative, hypnotic or anxiolytic dependence, uncomplicated (3) Opioid use disorder, severe, dependence: Status: Acute Code(s): F11.20 - Opioid dependence, uncomplicated Plan Mr. Spears is a 68 year-old male with hx of depression, opioid use disorder and benzodiazepine use disorder. He self presented to [facility] ED reporting increased depressed mood, suicide attempt with clonazepam. Utox positive for fentanyl, benzodiazepine, THC, methadone. We discussed risks, benefits and alternative treatment options. WIll do modified benzo taper with clonazepam 1mg po BID. He did fine last time with this dose despite reported daily use of 10mg of clonazepam. Also keeping in mind that he is on a high dose of methadone and risk of respiratory suppression. He is also on gabapentin. Will monitor exacerbation of benzo withdrawal. He agrees to continue remeron as antidepressant. PLAN 04/24 continue current tx. 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 04/25 will start mag oxide 400mg po qhs for chronic constipation, sleep. will switch remeron to sertraline. it does appear that he feels full may be due to slowed motility s/s to opioid induced constipation. 04/26 continue tx. 04/27 continue tx plan Patient educated on: diagnosis, medication risk/benefits and therapeutic strategies Informed Consent: understands Reason for continued inpatient stay Substantial Risk for: inability to function and rapid decompensation Time Spent With Patient Time: Total time managing care of this patient today ____ minutes.
[2024-04-27 20:00] VITALS: BP 154/88; PULSE 64; RESP 16; TEMP 36.4; O2SAT 98
[2024-04-27] MEDS: Magnesium Oxide 400 MG TABLET PO (20:21)
[2024-04-27] MEDS: Melatonin 3 MG TABLET 6 MG PO (20:21)
[2024-04-27] MEDS: Mirtazapine 15 MG TABLET PO (20:22)
[2024-04-27] MEDS: methADONE HCl 20 MG/2 ML ORAL.CONC 105 MG PO (20:22)
[2024-04-28] MEDS: Omeprazole 20 MG CAPSULE.DR PO (05:49)
[2024-04-28 07:56] VITALS: BP 133/78; PULSE 68; RESP 18; TEMP 36.3; O2SAT 97
[2024-04-28] MEDS: clonazePAM 1 MG TABLET PO ×2 (08:16→20:43)
[2024-04-28] MEDS: Sennosides/Docusate Sodium TABLET 2 TAB PO ×2 (08:16→20:42)
[2024-04-28] MEDS: Lipase/Prot/Amylase 24/76/120K 1 CAP CAPSULE.DR PO ×3 (08:17→16:21)
[2024-04-28] MEDS: methADONE HCl 20 MG/2 ML ORAL.CONC 160 MG PO (08:17)
[2024-04-28] MEDS: Sertraline HCL 50 MG TABLET PO (08:17)
--- NOTE | 2024-04-28 16:51 | P.PNPSI_ITS ---
Subjective Subjective Date of Service: 04/28/24 Reason For Visit: SI Interim History: Pt reports no changes; some difficulty sleeping last night. He reports feeling anxious today He denies SI/HI. He reports he is trying to distract his mind. He denies pain. He is taking meds as prescribed Medication Compliance: Yes Side effects from medications: No Attending Groups: Intermittent Review of Systems Constitutional: Denies body ache(s), Denies chills and Denies headache(s) Eyes: Denies blurry vision Denies headache(s) Cardiovascular: Denies chest pain and Denies dyspnea Respiratory: Denies cough and Denies dyspnea Gastrointestinal: Denies abdominal pain, Denies nausea and Denies vomiting Skin/Breast: Denies rash Denies headache(s) Psychiatric: Reports depression and Reports suicidal ideation Mental Status Exam Mental Status Exam Narrative: Appearance:thin, malnourished, fair hygiene, in NAD Behavior:cooperative Psychomotor: no agitation or retardation noted Speech:clear, normal rate/rhythm/volume, spontaneous, soft spoken TP:linear TC:feeling tired Mood: disgusted Affect:constricted SI:denies HI:none VH/AH:none Delusions:none Insight/judgment: poor x 2. Memory/cog: alert, oriented x 3. Diagnostics Vital Signs (24Hr): Vital Signs - 24 hr 04/27/24 20:00 04/28/24 07:56 Temperature 97.6 F 97.3 F Pulse Rate 64 68 Respiratory Rate 16 18 Blood Pressure 154/88 H 133/78 Pulse Oximetry 98 97 Oxygen Delivery Method Room Air Room Air BMI result Body Mass Index 16.0 Labs 04/20/24 20:03 04/23/24 08:05 Medications Medications Current Medications Acetaminophen (Acetaminophen 325 Mg Tablet) 975 mg PO Q6H PRN PRN Reason: Pain, Moderate(Pain Scale 4-6) Al Hydroxide/Mg Hydroxide (Magnesium Hydrox/Alum Hydrox 30 Ml Oral.Susp) 30 ml PO Q6H PRN PRN Reason: Heartburn/Nausea Lipase/Protease/Amylase (Lipase/Prot/Amylase 24/76/120k 1 Cap Capsule.) 1 cap PO TIDWM [facility] Last Admin: 04/28/24 16:21 Dose: 1 cap Clonazepam (Clonazepam 1 Mg Tablet) 1 mg PO BID [facility] Last Admin: 04/28/24 08:16 Dose: 1 mg Hydroxyzine HCl (Hydroxyzine Hcl 25 Mg Tablet) 25 mg PO Q6H PRN PRN Reason: Anxiety Last Admin: 04/25/24 20:24 Dose: 25 mg Magnesium Hydroxide (Milk Of Magnesia 30 Ml Oral.Susp) 30 ml PO DAILY PRN PRN Reason: Constipation Magnesium Oxide (Magnesium Oxide 400 Mg Tablet) 400 mg PO BEDTIME [facility] Last Admin: 04/27/24 20:21 Dose: 400 mg Melatonin (Melatonin 3 Mg Tablet) 6 mg PO BEDTIME [facility] Last Admin: 04/27/24 20:21 Dose: 6 mg Methadone HCl (Methadone Hcl 20 Mg/2 Ml Oral.Conc) 105 mg PO BEDTIME [facility] Last Admin: 04/27/24 20:22 Dose: 105 mg Methadone HCl (Methadone Hcl 20 Mg/2 Ml Oral.Conc) 160 mg PO DAILY [facility] Last Admin: 04/28/24 08:17 Dose: 160 mg Mirtazapine (Mirtazapine 15 Mg Tablet) 15 mg PO BEDTIME [facility] Last Admin: 04/27/24 20:22 Dose: 15 mg Omeprazole (Omeprazole 20 Mg Capsule.Dr) 20 mg PO DAILY@0630 [facility] Last Admin: 04/28/24 05:49 Dose: 20 mg Senna/Docusate Sodium (Sennosides/Docusate Sodium Tablet) 2 tab PO BID [facility] Last Admin: 04/28/24 08:16 Dose: 2 tab Sertraline HCl (Sertraline Hcl 50 Mg Tablet) 50 mg PO DAILY [facility] Last Admin: 04/28/24 08:17 Dose: 50 mg Simethicone (Simethicone 80 Mg Tab.Chew) 80 mg PO QIDWMHS PRN PRN Reason: bloating Trazodone HCl (Trazodone Hcl 50 Mg Tablet) 50 mg PO BEDTIME MRX1 PRN PRN Reason: Insomnia Last Admin: 04/25/24 20:24 Dose: 50 mg Allergies Allergies Allergy/AdvReac Type Severity Reaction Status Date / Time Penicillins [PENICILLINS] Allergy Unknown UNKNOWN, Verified 04/20/24 19:08 rash Assessment & Plan Assessment & Plan (1) MDD (major depressive disorder), recurrent episode, moderate: Status: Acute Code(s): F33.1 - Major depressive disorder, recurrent, moderate (2) Benzodiazepine dependence, continuous: Status: Acute Code(s): F13.20 - Sedative, hypnotic or anxiolytic dependence, uncomplicated (3) Opioid use disorder, severe, dependence: Status: Acute Code(s): F11.20 - Opioid dependence, uncomplicated Plan Mr. Spears is a 68 year-old male with hx of depression, opioid use disorder and benzodiazepine use disorder. He self presented to [facility] ED reporting increased depressed mood, suicide attempt with clonazepam. Utox positive for fentanyl, benzodiazepine, THC, methadone. We discussed risks, benefits and alternative treatment options. WIll do modified benzo taper with clonazepam 1mg po BID. He did fine last time with this dose despite reported daily use of 10mg of clonazepam. Also keeping in mind that he is on a high dose of methadone and risk of respiratory suppression. He is also on gabapentin. Will monitor exacerbation of benzo withdrawal. He agrees to continue remeron as antidepressant. PLAN 04/24 continue current tx. 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 04/25 will start mag oxide 400mg po qhs for chronic constipation, sleep. will switch remeron to sertraline. it does appear that he feels full may be due to slowed motility s/s to opioid induced constipation. 04/26 continue tx. 04/27 continue tx plan 04/28 contiue tx Reason for continued inpatient stay Substantial Risk for: harm to self and inability to function Time Spent With Patient Time: Total time managing care of this patient today ____ minutes.
[2024-04-28 20:00] VITALS: BP 156/92; PULSE 63; RESP 18; TEMP 36.7; O2SAT 97
[2024-04-28] MEDS: Magnesium Oxide 400 MG TABLET PO (20:43)
[2024-04-28] MEDS: traZODone HCL 50 MG TABLET PO (20:43)
[2024-04-28] MEDS: methADONE HCl 20 MG/2 ML ORAL.CONC 105 MG PO (20:43)
[2024-04-28] MEDS: Mirtazapine 15 MG TABLET PO (20:43)
[2024-04-28] MEDS: Melatonin 3 MG TABLET 6 MG PO (20:43)
[2024-04-28] MEDS: hydrOXYzine HCL 25 MG TABLET PO (20:43)
[2024-04-29] MEDS: Omeprazole 20 MG CAPSULE.DR PO (06:15)
[2024-04-29 08:16] VITALS: BP 113/73; PULSE 63; RESP 16; TEMP 37; O2SAT 99
[2024-04-29] MEDS: methADONE HCl 20 MG/2 ML ORAL.CONC 160 MG PO (08:48)
[2024-04-29] MEDS: Lipase/Prot/Amylase 24/76/120K 1 CAP CAPSULE.DR PO ×3 (08:51→17:10)
[2024-04-29] MEDS: Sertraline HCL 50 MG TABLET PO (08:51)
[2024-04-29] MEDS: Sennosides/Docusate Sodium TABLET 2 TAB PO ×2 (08:51→20:16)
[2024-04-29] MEDS: clonazePAM 1 MG TABLET PO ×2 (08:51→20:16)
--- NOTE | 2024-04-29 14:55 | HO.PSYCHPN ---
Subjective Subjective Date of Service: 04/29/24 Reason For Visit: SI Subjective Notes: Conditional Voluntary Interim History: Per nursing, pt slept through the night. He reports he is looking forward to be discharged tomorrow. He is more open to continue dual tx. He denies SI/HI. no side effects with current medications. Pt visible on the unit. No behavioral concerns. Review of Systems Constitutional: Denies body ache(s), Denies chills and Denies headache(s) Eyes: Denies blurry vision Denies headache(s) Cardiovascular: Denies chest pain and Denies dyspnea Respiratory: Denies cough and Denies dyspnea Gastrointestinal: Denies abdominal pain, Denies nausea and Denies vomiting Skin/Breast: Denies rash Denies headache(s) Psychiatric: Reports depression and Reports suicidal ideation Mental Status Exam Mental Status Exam Narrative: Appearance:thin, malnourished, fair hygiene, in NAD Behavior:cooperative Psychomotor: no agitation or retardation noted Speech:clear, normal rate/rhythm/volume, spontaneous, soft spoken TP:linear TC:feeling tired Mood: disgusted Affect:constricted SI:denies HI:none VH/AH:none Delusions:none Insight/judgment: poor x 2. Memory/cog: alert, oriented x 3. Diagnostics Vital Signs (24Hr): Vital Signs - 24 hr 04/28/24 20:00 04/29/24 08:16 Temperature 98.0 F 98.6 F Pulse Rate 63 63 Respiratory Rate 18 16 Blood Pressure 156/92 H 113/73 Pulse Oximetry 97 99 Oxygen Delivery Method Room Air Room Air BMI result Body Mass Index 16.0 Labs 04/20/24 20:03 04/23/24 08:05 Medications Medications Current Medications Acetaminophen (Acetaminophen 325 Mg Tablet) 975 mg PO Q6H PRN PRN Reason: Pain, Moderate(Pain Scale 4-6) Al Hydroxide/Mg Hydroxide (Magnesium Hydrox/Alum Hydrox 30 Ml Oral.Susp) 30 ml PO Q6H PRN PRN Reason: Heartburn/Nausea Lipase/Protease/Amylase (Lipase/Prot/Amylase 24/76/120k 1 Cap Capsule.) 1 cap PO TIDWM [facility] Last Admin: 04/29/24 12:53 Dose: 1 cap Clonazepam (Clonazepam 1 Mg Tablet) 1 mg PO BID [facility] Last Admin: 04/29/24 08:51 Dose: 1 mg Hydroxyzine HCl (Hydroxyzine Hcl 25 Mg Tablet) 25 mg PO Q6H PRN PRN Reason: Anxiety Last Admin: 04/28/24 20:43 Dose: 25 mg Magnesium Hydroxide (Milk Of Magnesia 30 Ml Oral.Susp) 30 ml PO DAILY PRN PRN Reason: Constipation Magnesium Oxide (Magnesium Oxide 400 Mg Tablet) 400 mg PO BEDTIME [facility] Last Admin: 04/28/24 20:43 Dose: 400 mg Melatonin (Melatonin 3 Mg Tablet) 6 mg PO BEDTIME [facility] Last Admin: 04/28/24 20:43 Dose: 6 mg Methadone HCl (Methadone Hcl 20 Mg/2 Ml Oral.Conc) 105 mg PO BEDTIME [facility] Last Admin: 04/28/24 20:43 Dose: 105 mg Methadone HCl (Methadone Hcl 20 Mg/2 Ml Oral.Conc) 160 mg PO DAILY [facility] Last Admin: 04/29/24 08:48 Dose: 160 mg Mirtazapine (Mirtazapine 15 Mg Tablet) 15 mg PO BEDTIME [facility] Last Admin: 04/28/24 20:43 Dose: 15 mg Omeprazole (Omeprazole 20 Mg Capsule.Dr) 20 mg PO DAILY@0630 [facility] Last Admin: 04/29/24 06:15 Dose: 20 mg Senna/Docusate Sodium (Sennosides/Docusate Sodium Tablet) 2 tab PO BID [facility] Last Admin: 04/29/24 08:51 Dose: 2 tab Sertraline HCl (Sertraline Hcl 50 Mg Tablet) 50 mg PO DAILY [facility] Last Admin: 04/29/24 08:51 Dose: 50 mg Simethicone (Simethicone 80 Mg Tab.Chew) 80 mg PO QIDWMHS PRN PRN Reason: bloating Trazodone HCl (Trazodone Hcl 50 Mg Tablet) 50 mg PO BEDTIME MRX1 PRN PRN Reason: Insomnia Last Admin: 04/28/24 20:43 Dose: 50 mg Allergies Allergies Allergy/AdvReac Type Severity Reaction Status Date / Time Penicillins [PENICILLINS] Allergy Unknown UNKNOWN, Verified 04/20/24 19:08 rash Assessment & Plan Assessment & Plan (1) MDD (major depressive disorder), recurrent episode, moderate: Status: Acute Code(s): F33.1 - Major depressive disorder, recurrent, moderate (2) Benzodiazepine dependence, continuous: Status: Acute Code(s): F13.20 - Sedative, hypnotic or anxiolytic dependence, uncomplicated (3) Opioid use disorder, severe, dependence: Status: Acute Code(s): F11.20 - Opioid dependence, uncomplicated Plan Mr. Spears is a 68 year-old male with hx of depression, opioid use disorder and benzodiazepine use disorder. He self presented to [facility] reporting increased depressed mood, suicide attempt with clonazepam. Utox positive for fentanyl, benzodiazepine, THC, methadone. We discussed risks, benefits and alternative treatment options. WIll do modified benzo taper with clonazepam 1mg po BID. He did fine last time with this dose despite reported daily use of 10mg of clonazepam. Also keeping in mind that he is on a high dose of methadone and risk of respiratory suppression. He is also on gabapentin. Will monitor exacerbation of benzo withdrawal. He agrees to continue remeron as antidepressant. PLAN 04/24 continue current tx. 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 04/25 will start mag oxide 400mg po qhs for chronic constipation, sleep. will switch remeron to sertraline. it does appear that he feels full may be due to slowed motility s/s to opioid induced constipation. 04/26 continue tx. 04/27 continue tx plan 04/29 continue tx. dc tomorrow. Reason for continued inpatient stay Substantial Risk for: stable for discharge Time Spent With Patient Time: Total time managing care of this patient today ____ minutes.
[2024-04-29 20:00] VITALS: BP 136/83; PULSE 68; RESP 18; TEMP 36.9; O2SAT 96
[2024-04-29] MEDS: Magnesium Oxide 400 MG TABLET PO (20:15)
[2024-04-29] MEDS: Melatonin 3 MG TABLET 6 MG PO (20:15)
[2024-04-29] MEDS: hydrOXYzine HCL 25 MG TABLET PO (20:16)
[2024-04-29] MEDS: methADONE HCl 20 MG/2 ML ORAL.CONC 105 MG PO (20:16)
[2024-04-29] MEDS: traZODone HCL 50 MG TABLET PO (20:16)
[2024-04-29] MEDS: Mirtazapine 15 MG TABLET PO (20:16)
[2024-04-30] MEDS: Omeprazole 20 MG CAPSULE.DR PO (05:59)
[2024-04-30 08:16] VITALS: BP 155/85; PULSE 66; RESP 18; TEMP 36.2; O2SAT 97
[2024-04-30] MEDS: methADONE HCl 20 MG/2 ML ORAL.CONC 160 MG PO (08:22)
[2024-04-30] MEDS: Sertraline HCL 50 MG TABLET PO (08:22)
[2024-04-30] MEDS: Sennosides/Docusate Sodium TABLET 2 TAB PO (08:22)
[2024-04-30] MEDS: clonazePAM 1 MG TABLET PO (08:22)
[2024-04-30] MEDS: Lipase/Prot/Amylase 24/76/120K 1 CAP CAPSULE.DR PO (08:22)
--- NOTE | 2024-04-30 09:07 | PM.PSYDC ---
DS: Providers Provider Date of Service: 04/30/24 Date of admission: 04/22/24 14:08 Date of discharge: 04/30/24 Primary care physician: Unknown Physician Consults: 04/24/24 16:50 Addiction Medicine Routine Consulting Provider: Addiction Covering Reason for consultation: interested in success coach Has provider been notified: Yes DS: Diagnosis Discharge Diagnosis (1) MDD (major depressive disorder), recurrent episode, moderate: Status: Acute (2) Benzodiazepine dependence, continuous: Status: Acute (3) Opioid use disorder, severe, dependence: Status: Acute DS: Medications Discharge Medications Home Medications: Home Medications ?Medication ?Instructions ?Recorded ?Confirmed methadone 10 mg/mL oral concentrate 160 mg PO QAM 06/11/21 04/20/24 methadone 10 mg/mL oral concentrate 105 mg PO QPM 12/17/23 04/20/24 Previous Rx's ?Medication ?Instructions ?Recorded lobaup-issbfhpy-ecncetd 1 cap PO TIDWM #90 caps 12/28/23 24,000-76,000-120,000 unit capsule,delayed rel (Creon) mirtazapine 30 mg tablet 30 mg PO BEDTIME #30 tabs 12/28/23 omeprazole 20 mg capsule,delayed 20 mg PO DAILY@0630 #30 caps 12/28/23 release trazodone 50 mg tablet 50 mg PO BEDTIME PRN Insomnia #30 12/28/23 tabs Mental Status Exam Mental Status Exam Narrative: Appearance:thin, malnourished, fair hygiene, in NAD Behavior:cooperative Psychomotor: no agitation or retardation noted Speech:clear, normal rate/rhythm/volume, spontaneous, soft spoken TP:linear TC:looking forward to return home Mood: better Affect:constricted SI:denies HI:none VH/AH:none Delusions:none Insight/judgment: poor x 2. Memory/cog: alert, oriented x 3. DS: Summary Hospital Course Hospital Course: Mr. Spears is a 68 year-old male with hx of depression, opioid and benzodiazepine use disorder who self presented to [facility] reporting increased depression, suicide attempt via clonazepam. In the ED, utox is positive for opioids, methadone, benzodiazepam, THC, fentanyl. Mr. Spears is known to this unit through previous admission back in December 2023 to with similar presentation including increased depressed mood in setting of ongoing substance use. Pt reports that soon after he was discharged from [facility], he did well for some month but later relapsed on both benzodiazepines and opioids. He reports feeling disgusted with himself as he has struggle with substance use most of his adult life with little to no significant period of sobriety. He does report that he was able to secure housing and came to agreement to pay the rent he was behind on. He reports using about 10mg clonazepam daily, which is what he typically would use when misusing benzodiazepines. It is unclear if in fact he had a suicide attempt. He endorses feeling hopeless, tired of using substances, worried about losing his stable housing. He denies VH/AH. No delusions. He also reports he did not follow up with medical appointments including his PCP and nephrology. There no active prescription for clonazepam, so he reports buying it on the streets. Past Psychiatric History: Inpt: [facility] 2021; [facility] 12/2023 OP: none HOSPITAL COURSE On the unit, pt was admitted on a CV and placed on 15 minutes checks for safety. Pt reported ongoing depressed mood, hopelessness, feeling tired about ongoing substance use. He denied suicidal ideation throughout this hospital stay. He appropriately expressed his frustration about little time of sobriety he has had during decades of struggling with substance use. We discussed risks, benefits and alternative treatment options, we decided to switch remeron to sertraline, in part due to increase or worsening constipation and pt's report that he had done well with sertraline in the past. He was also started on mag oxide for chronic constipation s/s to MAT and sleep. He was started on benzo taper which he completed without any significant complications. He was more open to additional resources in the community including connecting with success coach, going to day program as he is mostly at home and this encourages further substance use. He was sleeping well for the most part. No behavioral concerns. He was visible on the unit and pleasant on approach. He was given narcan at time of discharge. Status at Discharge Cognitive/behavioral status at discharge: Pt with brighter, non labile affect. No SI/HI. No VH/AH. No s/s of delusions. Sleeping and eating well. He presents as more future oriented looking forward to continue dual dx substance use treatment. Narcan given on discharge. Functional status at discharge: independent ambulation Overall status at discharge: patient is progressing back to baseline Time Spent with Patient Time attestation: Total time managing care of this patient today ___35_ minutes. Time spent: Greater than 30 minutes Discharge Plan Discharge Anticipated Discharge Date/Time: 04/30/24 09:08 Patient Disposition: Home, Self-Care Discharge Diagnosis: MDD, recurrent, moderate Opioid Use disorder on Methadone Benzodiazepine Use Disorder Referrals: Home Making: [facility] [Other] - 05/01/24 ([facility] stated that they will return to the home Tuesday 05/01. Please call above number with any questions.) [facility] [Other] - 1 Week [facility] [Other] - 1 Week [facility] [Other] - 1 Week ([facility] Name: Dion Cash [phone] ext [phone]) Physician,Unknown J [Primary Care Provider] - 1 Week Discharge Medications: New trazodone 50 mg Tablet 50 mg PO BEDTIME PRN (Reason: Insomnia) Qty: 30 0RF sennosides-docusate sodium [Senna Plus] 8.6-50 mg Tablet 2 tab PO BID Qty: 120 0RF melatonin 3 mg Tablet 6 mg PO BEDTIME Qty: 60 0RF magnesium oxide 400 mg (241.3 mg magnesium) Tablet 400 mg PO BEDTIME Qty: 30 0RF omeprazole 20 mg Capsule,Delayed Release(Dr/Ec) 20 mg PO DAILY@0630 Qty: 30 0RF sertraline 50 mg Tablet 50 mg PO DAILY Qty: 30 0RF Creon 24,000-76,000 -120,000 unit Capsule,Delayed Release(Dr/Ec) 1 cap PO TIDWM Qty: 90 0RF Continued methadone 10 mg/mL Concentrate 160 mg PO QAM Rx Instructions: Patient is on a split dose 160 mg in am and 105 mg in pm. Verified by Robinson NEIL methadone 10 mg/mL Concentrate 105 mg PO QPM Rx Instructions: Patient is on a split dose 160 mg in am and 105 mg in pm Verified by Robinson Tim trazodone 50 mg Tablet 50 mg PO BEDTIME PRN (Reason: Insomnia) Qty: 30 0RF mirtazapine 30 mg Tablet 30 mg PO BEDTIME Qty: 30 0RF omeprazole 20 mg Capsule,Delayed Release(Dr/Ec) 20 mg PO DAILY@0630 Qty: 30 0RF Creon 24,000-76,000 -120,000 unit Capsule,Delayed Release(Dr/Ec) 1 cap PO TIDWM Qty: 90 0RF Discharge Orders: Discharge Order (Routine); Ordered 04/30/24 Ordered By: Maria Del Rosario Ruiz Diet: Regular diet Activity on Discharge: As tolerated Stand Alone Forms: Patient Portal Discharge page Print Language: Macedonian Care Plan Goals: 1. Maintain mood 2. No SI/HI 3. harm reduction- narcan given on discharge Health Concerns: Follow up with PCP for routine care Plan of Treatment: -Take medications as prescribed -Go to nearest ED or call 911 in event of emergency Assessment: Pt with brighter, non labile affect. No SI/HI. future oriented. Sleeping and eating fairly well. No behavioral concerns. Harm reduction discussed- given narcan at time of discharge.
[2024-04-30] MEDS: Naloxone HCl Nasal TAKE HOME 4 MG SPRAY 8 MG NOSTRILALT (09:15)
--- NOTE | 2024-04-30 10:54 | PC.NURSE ---
Spoke with PCP office, they will call pt to schedule PCP appointment.
--- NOTE | 2024-04-30 11:09 | PC.NURSE ---
Pt. A & O X 4. Denies depression, SI, HI, or perceptual disturbances. Reports some anxiety around discharge. Follow up appointments and medications reviewed with pt., who verbalizes understanding. Methadone clinic notified of pt. discharge and last dose letter given to pt. Pt. left unit at 11:02 and ambulated to [facility] at main entrance accompanied by this RN.
== END 2024-04-30 11:02 | disposition home or self-care (01) | DRG 885 ==
LOC: HO.ED 04-21 09:36 → HO.PGERI 04-22 14:20
PROVIDERS: Emergency Medicine; Physician Assistant; Admitting Provider Psychiatry & Neurology Psychiatry; Emergency Provider Emergency Medicine Emergency Medical Services; Visit Provider Psychiatry & Neurology Psychiatry
DX: F33.1 Major depressive disorder, recurrent, moderate (principal); R45.851 Suicidal ideations; F11.20 Opioid dependence, uncomplicated; F13.20 Sedative, hypnotic or anxiolytic dependence, uncomplicated; F17.210 Nicotine dependence, cigarettes, uncomplicated; Z71.6 Tobacco abuse counseling; Z79.899 Other long term (current) drug therapy
CPT/HCPCS: 36415; 80053; 80061; 80143; 80179; 80307; 81003; 85027; 93005; 99285; S9485

== ENCOUNTER → 2024-04-22 09:07 | Outpatient (BNV) | payer OTHER, SELFPAY | PROVIDERS: Admitting Provider Psychiatry & Neurology Psychiatry; Emergency Provider Emergency Medicine Emergency Medical Services; Visit Provider Internal Medicine Cardiovascular Disease | DX: R94.31 Abnormal electrocardiogram [ECG] [EKG] (principal) | CPT/HCPCS: 93010 ==

== ENCOUNTER → 2024-04-22 14:08 | Outpatient (BNV) | payer OTHER, SELFPAY | PROVIDERS: Admitting Provider Psychiatry & Neurology Psychiatry; Emergency Provider Emergency Medicine Emergency Medical Services; Visit Provider Social Worker | DX: F33.1 Major depressive disorder, recurrent, moderate (principal); F11.20 Opioid dependence, uncomplicated; F13.20 Sedative, hypnotic or anxiolytic dependence, uncomplicated | CPT/HCPCS: 90792; 99231; 99232; 99239 ==